=== PATIENT | female | born 1960 | race Hispanic/Latino ===

== ENCOUNTER 2024-11-25 09:34 | Outpatient (CLI) | payer MEDICARE, SELFPAY ==
--- NOTE | ~2024-11-25 | MR_ITS ---
MRI of the right shoulder Technique: Axial proton-density fat-sat images, coronal proton density fat-sat and T2 fat-sat images, and sagittal T1-weighted and T2 fat-sat images were acquired. Clinical History: Pain Findings: There is advanced AC joint degenerative change with bony productive change of both sides of the joint. Coracoclavicular, coracoacromial, and coracohumeral ligaments appear intact. There is apparent full-thickness tear involving the anterior to midportion of the distal supraspinatu s tendon insertion, with full-thickness tear measuring approximately 2.2 x 1.3 cm in extent. Subscapu luis tendon demonstrates diffuse thinning without definite full-thickness tear. There is apparent ru pture of the proximal biceps tendon, probably retracted to the bicipital groove. There is a degenerative tearing and attenuation of the superior labrum. Inferior glenohumeral ligament is intact. No significant degenerative change of the glenohumeral join t. There are small glenohumeral joint effusion with fluid passing through the rotator cuff defect int o the subacromial/subdeltoid bursa. No muscle atrophy or edema evident. Impression: 2.2 x 1.37 or full-thickness tear at the anterior to midportion of the distal supraspinatus tendon in sertion. Probable complete rupture of the proximal long head biceps tendon with retraction into the bicipital groove. Degenerative tearing and attenuation of the superior labrum. Advanced AC joint degenerative change. Reviewed, dictated and finalized at [facility]. Impression: 2.2 x 1.37 or full-thickness tear at the anterior to midportion of the distal s upraspinatus tendon insertion. Probable complete rupture of the proximal long head biceps tendon with retracti on into the bicipital groove. Degenerative tearing and attenuation of the superior labrum. Advanced AC joint degenerative change.
== END 2024-11-25 09:35 | disposition home or self-care (01) ==
LOC: MICIMG 09:35
PROVIDERS: PCP Emergency Medicine; Visit Provider Orthopaedic Surgery
DX: S46.811A Strain of other muscles, fascia and tendons at shoulder and upper arm level, right arm, initial encounter (principal)
CPT/HCPCS: 73221

== ENCOUNTER 2024-12-11 10:02 | Outpatient (CLI) | payer MEDICARE, SELFPAY ==
--- NOTE | 2024-12-11 10:15 | ECG_ITS ---
Test Date: 2024-12-11 10:32:17 Measurements Intervals [place] Rate: 85 P: 57 AL: 182 QRS: 18 QRSD: 78 T: 44 QT: 358 QTc: 427 Interpretive Statements SINUS RHYTHM DELAYED PRECORDIAL R/S TRANSITION LOW QRS VOLTAGE IN PRECORDIAL LEADS BASELINE ARTIFACT- I, II, III, AVR, AVL, AVF BORDERLINE ECG No previous ECG available for comparison Electronically Signed On 12-11-2024 10:56:39 CDT by Cooper Lewis D.O.
[2024-12-11 10:47] LABS: Anion Gap 9 mmol/L (4-12); Blood Urea Nitrogen 19 mg/dL (7-17); Calcium 9.4 mg/dL (8.4-10.2); Carbon Dioxide 28 mmol/L (22-30); Chloride 104 mmol/L (98-107); Estimated Glomerular Filt Rate > 60; Glucose 156 mg/dL (65-110); Sodium 141 mmol/L (137-145)
--- OUTSIDE RECORDS SUMMARY | 2024-12-11 10:48 | XMS_ITS | Data Portability ---
Author Organization [facility] Address [address] [place] [address] Care Team Providers Care Block Sawyer Name Role Phone STAR JAMES Primary Care Provider DIANE LONGO Primary Care Provider Unavailabl e Assessment No assessment recorded. Plan of Treatment Reminders Order Date Submit Date Provider Last Modified By Organization Details Last Modified Time Details Appointments ANY 2024 04:00P M Diane Longo MD Not available Not available Not available ANY 2024 02:30P M Diane Longo MD Not available Not available Not available Lab hemoglobi n (Hb), fingersti ck, blood 2024 025 [email or web address] In-Office Order, Internal Use Only DO Not Attach Compendium DO Not Attach Compendium, Do Not Delete/merge, [id number] 11/11/2024 16:14:19 lipid panel, serum 2024 025 ilesma [facility], [address], [place], [address], 12/09/2024 11:02:44 CMP, serum or plasma 2024 025 [email or web address] [facility], [address], [place], [address], 12/02/2024 12:14:26 CBC 2024 025 [email or web address] [facility], [address], [place], [address], 12/02/2024 12:14:26 albumin/c reatinine , mass ratio, urine 2024 025 [facility], [address], [place], [address], 12/02/2024 12:14:26 HbA1c (hemoglob in A1c), blood 2024 025 URBANA [facility], [address], [place], [address], 09/03/2024 19:10:12 lipid panel, serum 2023 024 [facility], [address], [place], [address], 11/20/2024 09:59:27 HbA1c (hemoglob in A1c), blood 2023 024 laureano In-Office Order, Internal Use Only DO Not Attach Compendium DO Not Attach Compendium, Do Not Delete/merge, [id number] 02/11/2024 17:26:15 Referral physical therapist referral - wasting in leg muscles, please help with exercises , diabetic 2024 025 [facility], [address] [facility] [address], [facility], [place], [address], 12/11/2024 05:06:45 gastroent erologist referral 2023 024 [facility], [address], [place], [address], 02/19/2024 10:50:54 podiatris t referral 2023 024 [facility], [address], [place], [address], 12/11/2023 15:45:06 otolaryng ologist referral - has seen ENT twice and treated with multiple courses of antibioti cs with no improveme nt, continues with green pustular drainage from ear and pain and decreased hearing, previous mastoidec albertina 2023 024 [facility] [address], [place], [address], 12/28/2023 10:59:14 Procedures None recorded. Surgeries None recorded. Imaging MAMMO, screening , digital, bilateral [address] [facility] ([facility]), [address] [place], [address], 12/09/2024 11:02:31 XR, shoulder 2024 025 [facility] ([facility]), [address] [place], [address], 09/02/2024 13:35:50 XR, abdomen, complete 2023 024 [facility] ([facility]), [address] [place], [address], 02/26/2024 13:29:23 XR, knee - include sunrise view 2023 024 [facility] ([facility]), [address] [place], [address], 12/11/2023 08:45:47 Medication Orders Farxiga 10 mg tablet [address] [facility] #[id number], [address], [place], [place], [id number], 11/11/2024 16:14:25 Ozempic 2 mg/dose (8 mg/3 mL) subcutane ous pen injector [address] [facility] #53274, [address], [place], [place], [id number], 11/11/2024 16:14:26 atorvasta tin 40 mg tablet [address] [facility] #65052, [address] [place], [place], [id number], 11/11/2024 16:14:24 lisinopri l 40 mg tablet [address] [facility] #34497, [address] [place], [place], [id number], 11/11/2024 16:14:26 famotidin e 20 mg tablet [address] [facility] #67246, [address] [place], [place], [id number], 11/11/2024 16:14:27 meloxicam 15 mg tablet [address] [facility] #57266, [address] [place], [place], [id number], 11/11/2024 16:14:26 methocarb debora 500 mg tablet [address] [facility] #22027, [address] [place], [place], [id number], 11/11/2024 16:14:31 meloxicam 15 mg tablet [address] [facility] #08844, [address], [place], [id number], 09/02/2024 12:17:26 methocarb debora 500 mg tablet [address] [facility] #89429, [address], [place], [id number], 09/02/2024 12:17:28 lactulose 10 gram/15 mL oral solution 2023 025 [facility] #40060, [address], [place], [id number], 11/11/2024 16:09:37 Ozempic 0.25 mg or 0.5 mg (2 mg/3 mL) subcutane ous pen injector 2023 024 [facility], [address], [place], [id number], 09/08/2024 15:41:10 Farxiga 5 mg tablet 2023 024 [facility] #39487, [address], [place], [id number], 12/04/2024 14:33:19 lidocaine 5 % topical patch 2023 025 [facility] #23146, [address], [place], [id number], 11/11/2024 15:02:27 Patient TargetsNo targets recorded. Patient Instructions Encounter Date Encounter Id Patient Instructions Last Modified By Organization Details Last Modified Time 12/10/2023 [id number] A healthy lifestyle: care instructions laureano Not available 12/10/2023 15:50:28 Reason for Referral [employer] Research Technician Referral fo r Acute left otitis media has seen ENT twice and treated with multiple courses of antibiotics with no improvement, continues with green pustular drainage from ear and pain and decreased hearing, previous mastoidectomy Referring Physician: Family Rosana Hdz, Encounter Date: 12/10/2023 Sap Consultant Referral for Pain of left ankle joint Referring Physician: Family Rosana Hdz, Encounter Date: 12/10/2023 Kettle Hand Referral for Constipation Referring Physician: Family Rosana Hdz, Encounter Date: 02/11/2024 Physical Therapist Referral for Body mass index 30+ - obesity wasting in leg muscles, please help with exercises, diabetic Referring Physician: [facility], Encounter Date: 11/11/2024 Results Created Date Observation Date Name Description Value Unit Range Abnormal Flag Note LastModifiedBy Organization Detail LastModifiedTime 11/20/19 24 11/21/2023 LIPID PANEL cholesterol, total 197 mg/dL 100-19 9 Not Available [facility] ([facility]) [address] [place], [address], 11/21/2023 10:14:58 11/20/19 24 11/21/2023 LIPID PANEL triglyceride s 337 mg/dL 0-149 above high normal Not Available [facility] ([facility]) [address] [place], [address], 11/21/2023 10:14:58 11/20/19 24 11/21/2023 LIPID PANEL HDL cholesterol 47 mg/dL >39 Not Available [facility] ([facility]) [address] [place], [address], 11/21/2023 10:14:58 11/20/19 24 11/21/2023 LIPID PANEL VLDL cholesterol anshu 56 mg/dL 5-40 above high normal Not Available [facility] ([facility]) [address] [place], [address], 11/21/2023 10:14:58 11/20/19 24 11/21/2023 LIPID PANEL LDL chol calc ([facility]) 94 mg/dL 0-99 Not Available [facility] ([facility]) [address] [place], [address], 11/21/2023 10:14:58 11/20/19 24 11/21/2023 COMP. METAB OLIC PANEL (14) glucose 308 mg/dL 70-99 above high normal Not Available [facility] ([facility]) [address] [place], [address], 11/21/2023 10:14:59 11/20/19 24 11/21/2023 COMP. METAB OLIC PANEL (14) BUN 20 mg/dL 8-27 Not Available [facility] ([facility]) [address] [facility] [address], [place], [address], 11/21/2023 10:14:59 11/20/19 24 11/21/2023 COMP. METAB OLIC PANEL (14) creatinine 0.87 mg/dL 0.57-1 .00 Not Available [facility] ([facility]) [address] [facility] [address], [place], [address], 11/21/2023 10:14:59 11/20/19 24 11/21/2023 COMP. METAB OLIC PANEL (14) eGFR 74 mL/mi n/1.7 3 >59 Not Available [facility] ([facility]) [address] [facility] [address], [place], [address], 11/21/2023 10:14:59 11/20/19 24 11/21/2023 COMP. METAB OLIC PANEL (14) BUN/creatini ne ratio 23 12-28 Not Available [facility] ([facility]) [address] [facility] [address], [place], [address], 11/21/2023 10:14:59 11/20/19 24 11/21/2023 COMP. METAB OLIC PANEL (14) sodium 138 mmol/ L 134-14 4 Not Available [facility] ([facility]) [address] [place], [address], 11/21/2023 10:14:59 11/20/19 24 11/21/2023 COMP. METAB OLIC PANEL (14) potassium 4.4 mmol/ L 3.5-5. 2 Not Available [facility] ([facility]) [address] [place], [address], 11/21/2023 10:14:59 11/20/19 24 11/21/2023 COMP. METAB OLIC PANEL (14) chloride 97 mmol/ L 96-106 Not Available [facility] ([facility]) [address] [place], [address], 11/21/2023 10:14:59 11/20/19 24 11/21/2023 COMP. METAB OLIC PANEL (14) carbon dioxide, total 24 mmol/ L Not Available [facility] ([facility]) [address], [place], [address], 11/21/2023 10:14:59 11/20/19 24 11/21/2023 COMP. METAB OLIC PANEL (14) calcium 10.0 mg/dL 8.7-10 .3 Not Available [facility] ([facility]) [address], [place], [address], 11/21/2023 10:14:59 11/20/19 24 11/21/2023 COMP. METAB OLIC PANEL (14) protein, total 6.9 g/dL 6.0-8. 5 Not Available [facility] ([facility]) [address], [place], [address], 11/21/2023 10:14:59 11/20/19 24 11/21/2023 COMP. METAB OLIC PANEL (14) albumin 4.3 g/dL 3.9-4. 9 Not Available [facility] ([facility]) [address] [place], [address], 11/21/2023 10:14:59 11/20/19 24 11/21/2023 COMP. METAB OLIC PANEL (14) globulin, total 2.6 g/dL 1.5-4. 5 Not Available [facility] ([facility]) [address] [place], [address], 11/21/2023 10:14:59 11/20/19 24 11/21/2023 COMP. METAB OLIC PANEL (14) A/G ratio 1.7 1.2-2. 2 Not Available [facility] ([place] [facility]) [address] [facility] [address], [place], [address], 11/21/2023 10:14:59 11/20/19 24 11/21/2023 COMP. METAB OLIC PANEL (14) bilirubin, total 0.4 mg/dL 0.0-1. 2 Not Available [facility] ([facility]) [address] [facility] [address], [place], [address], 11/21/2023 10:14:59 11/20/19 24 11/21/2023 COMP. METAB OLIC PANEL (14) alkaline phosphatase 129 IU/L 44-121 above high normal Not Available [facility] ([facility]) [address] [place], [address], 11/21/2023 10:14:59 11/20/19 24 11/21/2023 COMP. METAB OLIC PANEL (14) AST (SGOT) 18 IU/L 0-40 Not Available [facility] ([facility]) [address] [place], [address], 11/21/2023 10:14:59 11/20/19 24 11/21/2023 COMP. METAB OLIC PANEL (14) ALT (SGPT) 27 IU/L 0-32 Not Available [facility] ([facility]) [address] [place], [address], 11/21/2023 10:14:59 11/20/19 24 11/21/2023 TSH REFLE X TO T4 TSH 1.340 uIU/m L 0.450- 4.500 Not Available [facility] ([facility]) [address] [place], [address], 11/21/2023 10:15:00 11/20/19 24 11/21/2023 MICRO SCOPI C EXAMI NATIO N WBC 11-30 /hpf 0-5 abnormal Not Available [facility] ([facility]) [address] [place], [address], 11/21/2023 10:15:01 11/20/19 24 11/21/2023 MICRO SCOPI C EXAMI NATIO N RBC 0-2 /hpf 0-2 Not Available [facility] ([facility]) [address] [facility] [address], [place], [address], 11/21/2023 10:15:01 11/20/19 24 11/21/2023 MICRO SCOPI C EXAMI NATIO N epithelial cells (non renal) >10 /hpf 0-10 abnormal Not Available [facility] ([facility]) [address] [facility] [address], [place], [address], 11/21/2023 10:15:01 11/20/19 24 11/21/2023 MICRO SCOPI C EXAMI NATIO N casts None seen /lpf nonese en Not Available [facility] ([facility]) [address] [facility] [address], [place], [address], 11/21/2023 10:15:01 11/20/19 24 11/21/2023 MICRO SCOPI C EXAMI NATIO N bacteria Modera te nonese en/few abnormal Not Available [facility] ([facility]) [address] [facility] [address], [place], [address], 11/21/2023 10:15:01 11/20/19 24 11/21/2023 MICRO SCOPI C EXAMI NATIO N yeast Presen t nonese en abnormal Not Available [facility] ([facility]) [address] [facility] [address], [place], [address], 11/21/2023 10:15:01 11/20/19 24 11/21/2023 HEMOG LOBIN A1C hemoglobin A1C 12.1 % 4.8-5. 6 above high normal Predi abete s: 5.7 - 6.4 Diabe roe: >6.4 Glyce arabella contr ol for adult s with diabe roe: <7.0 Not Available [facility] ([facility]) [address] [facility] [address], [place], [address], 11/21/2023 10:15:02 11/20/19 24 11/21/2023 URINA LYSIS , ROUTI NE specific gravity 1.016 1.005- 1.030 Not Available [facility] ([facility]) [address] [place], [address], 11/21/2023 10:15:02 11/20/19 24 11/21/2023 URINA LYSIS , ROUTI NE pH 5.5 5.0-7. 5 Not Available [facility] ([facility]) [address] [facility] [address], [place], [address], 11/21/2023 10:15:02 11/20/19 24 11/21/2023 URINA LYSIS , ROUTI NE urine-color Yellow yellow Not Available [facility] ([facility]) [address] [facility] [address], [place], [address], 11/21/2023 10:15:02 11/20/19 24 11/21/2023 URINA LYSIS , ROUTI NE appearance Cloudy clear abnormal Not Available [facility] ([facility]) [address] [facility] [address], [place], [address], 11/21/2023 10:15:02 11/20/19 24 11/21/2023 URINA LYSIS , ROUTI NE WBC esterase 1+ negati ve abnormal Not Available [facility] ([facility]) [address] [place], [address], 11/21/2023 10:15:02 11/20/19 24 11/21/2023 URINA LYSIS , ROUTI NE protein Trace negati ve/tra ce Not Available [facility] ([facility]) [address] [place], [address], 11/21/2023 10:15:02 11/20/19 24 11/21/2023 URINA LYSIS , ROUTI NE glucose 3+ negati ve abnormal Not Available [facility] ([facility]) [address] [place], [address], 11/21/2023 10:15:02 11/20/19 24 11/21/2023 URINA LYSIS , ROUTI NE ketones Negati ve negati ve Not Available [facility] ([facility]) [address] [place], [address], 11/21/2023 10:15:02 11/20/19 24 11/21/2023 URINA LYSIS , ROUTI NE occult blood Trace negati ve abnormal Not Available [facility] ([facility]) [address] [place], [address], 11/21/2023 10:15:02 11/20/19 24 11/21/2023 URINA LYSIS , ROUTI NE bilirubin Negati ve negati ve Not Available [facility] ([facility]) [address] [place], [address], 11/21/2023 10:15:02 11/20/19 24 11/21/2023 URINA LYSIS , ROUTI NE urobilinogen ,semi-qn 0.2 mg/dL 0.2-1. 0 Not Available [facility] ([facility]) [address] [place], [address], 11/21/2023 10:15:02 11/20/19 24 11/21/2023 URINA LYSIS , ROUTI NE nitrite, urine Negati ve negati ve Not Available [facility] ([facility]) [address] [place], [address], 11/21/2023 10:15:02 11/20/19 24 11/21/2023 URINA LYSIS , ROUTI NE microscopic examination See below: Micro scopi c was indic ated and was perfo rmed. Not Available [facility] ([facility]) [address] [place], [address], 11/21/2023 10:15:02 12/04/19 24 12/05/2023 ALBUM IN/CR EAT RATIO , RANDO M UR creatinine, urine 84.8 mg/dL notest ab. Not Available [facility] ([facility]) [address] [facility] [address], [place], [address], 12/05/2023 09:15:47 12/04/19 24 12/05/2023 ALBUM IN/CR EAT RATIO , KALYAN Salas UR albumin, urine 30.3 ug/mL notest ab. Not Available [facility] ([facility]) [address] [facility] [address], [place], [address], 12/05/2023 09:15:47 12/04/19 24 12/05/2023 ALBUM IN/CR EAT RATIO , KALYAN Salas UR alb/creat ratio 36 mg/g_ creat 0-29 above high normal Kath l: 0 - 29 Moder ately incre ased: 30 - 300 Sever chapito incre ased: >300 Not Available [facility] ([facility]) [address] [facility] [address], [place], [address], 12/05/2023 09:15:47 12/04/1912/05/2023 URINA LYSIS , ROUTI NE specific gravity 1.020 1.005- 1.030 Not Available [facility] ([facility]) [address] [facility] [address], [place], [address], 12/05/2023 09:15:48 12/04/19 24 12/05/2023 URINA LYSIS , ROUTI NE pH 5.5 5.0-7. 5 Not Available [facility] ([facility]) [address] [place], [address], 12/05/2023 09:15:48 12/04/1912/05/2023 URINA LYSIS , ROUTI NE urine-color Yellow yellow Not Available [facility] ([facility]) [address] [facility] [address], [place], [address], 12/05/2023 09:15:48 12/04/19 24 12/05/2023 URINA LYSIS , ROUTI NE appearance Clear clear Not Available [facility] ([facility]) [address] [facility] [address], [place], [address], 12/05/2023 09:15:48 12/04/19 24 12/05/2023 URINA LYSIS , ROUTI NE WBC esterase Negati ve negati ve Not Available [facility] ([facility]) [address] [facility] [address], [place], [address], 12/05/2023 09:15:48 12/04/19 24 12/05/2023 URINA LYSIS , ROUTI NE protein Negati ve negati ve/tra ce Not Available [facility] ([facility]) [address] [facility] [address], [place], [address], 12/05/2023 09:15:48 12/04/19 24 12/05/2023 URINA LYSIS , ROUTI NE glucose 3+ negati ve abnormal Not Available [facility] ([facility]) [address] [facility] [address], [place], [address], 12/05/2023 09:15:48 12/04/19 24 12/05/2023 URINA LYSIS , ROUTI NE ketones Negati ve negati ve Not Available [facility] ([facility]) [address] [facility] [address], [place], [address], 12/05/2023 09:15:48 12/04/19 24 12/05/2023 URINA LYSIS , ROUTI NE occult blood Negati ve negati ve Not Available [facility] ([facility]) [address] [place], [address], 12/05/2023 09:15:48 12/04/19 24 12/05/2023 URINA LYSIS , ROUTI NE bilirubin Negati ve negati ve Not Available [facility] ([facility]) [address] [place], [address], 12/05/2023 09:15:48 12/04/19 24 12/05/2023 URINA LYSIS , ROUTI NE urobilinogen ,semi-qn 0.2 mg/dL 0.2-1. 0 Not Available [facility] ([facility]) [address] [place], [address], 12/05/2023 09:15:48 12/04/19 24 12/05/2023 URINA LYSIS , ROUTI NE nitrite, urine Negati ve negati ve Not Available [facility] ([facility]) [address] [place], [address], 12/05/2023 09:15:48 12/04/19 24 12/05/2023 URINA LYSIS , ROUTI NE microscopic examination Commen t Micro scopi c not indic ated and not perfo rmed. Not Available [facility] ([facility]) [address] [place], [address], 12/05/2023 09:15:48 12/04/19 24 12/06/2023 URINE CULTU RE, ROUTI NE urine culture, routine Final report abnormal Not Available [facility] ([facility]) [address] [place], [address], 12/07/2023 06:18:31 12/04/19 24 12/06/2023 URINE CULTU RE, ROUTI NE result 1 Escher ichia coli abnormal 25,00 0-50, 000 colon y formi ng units per mL Cefaz chace <=4 ug/mL Cefaz chace with an ARABELLA <=16 predi cts susce ptibi lity to the oral agent s cefac thierno, cefdi jordan, cefpo doxim e, cefpr ozil, cefur oxime , cepha lexin , and lorac arbef when used for thera py of uncom plica manuel urina ry tract infec tions due to E. coli, Klebs iella pneum oniae , and Prote us mirab ilis. Multi -Drug Resis tant Organ ism Not Available [facility] ([facility]) [address] [place], [address], 12/07/2023 06:18:31 12/04/19 24 12/06/2023 URINE CULTU RE, ROUTI NE antimicrobia l susceptibili ty Commen t S = Susce ptibl e; I = Inter media te; R = Resis tant P = Posit jigar; N = Negat jigar MICS are expre ssed in micro grams per mL Antib iotic RSLT# 1 RSLT# 2 RSLT# 3 RSLT# 4 Amoxi cilli n/Cla vulan ic Acid S Ampic illin R Cefep peggy S Ceftr iaxon e S Cefur oxime S Cipro floxa dat S Ertap enem S Genta micin S Imipe nem S Levof loxac in S Merop enem S Nitro furan toin S Piper acill in/Ta zobac heath S Tetra cycli ne R Tobra mycin S Trime thopr im/Jni lfa R Not Available [facility] ([facility]) [address] [facility] [address], [place], [address], 12/07/2023 06:18:31 02/11/20 24 02/11/2024 HbA1c (hemo globi n A1c), blood HbA1c 10.7 Not Available In-Office Order Internal Use Only DO Not Attach Compendium DO Not Attach Compendium, Do Not Delete/merge, [id number] 02/11/2024 17:09:55 09/02/19 25 09/03/2024 HEMOG LOBIN A1C hemoglobin A1C 10.8 % 4.8-5. 6 above high normal Predi abete s: 5.7 - 6.4 Diabe roe: >6.4 Glyce arabella contr ol for adult s with diabe roe: <7.0 Not Available [facility] ([facility]) [address] [facility] [address], [place], [address], 09/03/2024 19:10:12 11/12/19 25 11/11/2024 hemog lobin (Hb), finge rstic k, blood HGB 9.6 Not Available In-Office Order Internal Use Only DO Not Attach Compendium DO Not Attach Compendium, Do Not Delete/merge, [id number] 11/11/2024 15:46:10 11/30/19 24 11/30/2023 XR, ankle , 3 or more view No observ ation record ed. [facility] [address] [place], [address], 12/10/2023 10:04:16 11/30/19 24 11/30/2023 XR, abdom en, compl ete No observ ation record ed. [facility] [address] [place], [address], 12/10/2023 10:04:17 12/11/19 24 12/10/2023 XR, abdom en, compl ete No observ ation record ed. [facility] ([facility] [address] [place], [address], 12/12/2023 10:23:13 12/11/19 24 12/10/2023 XR, knee No observ ation record ed. [facility] [address] [place], [address], 12/12/2023 10:23:26 05/23/20 24 05/23/2024 XR, abdom en No observ ation record ed. [address] [place], [address], 05/29/2024 10:37:46 05/23/20 24 05/23/2024 CT, abdom en + pelvi s, w/ contr ast No observ ation record ed. [address] [place], [address], 05/29/2024 10:38:00 09/02/19 25 09/02/2024 XR, shoul shirley No observ ation record ed. [facility] [address] [place], [address], 09/11/2024 17:54:30 11/25/19 25 XR, shoul shirley No observ ation record ed. [facility] ([facility] [address] [place], [address], 11/25/2024 15:45:22 11/26/19 25 11/25/2024 MRI, shoul shirley, w/o contr ast No observ ation record ed. [facility] [address], [place], [address], 11/25/2024 18:14:29 Result Notes None recorded. Problems Name Problem SNOMED Code Status Onset Date Resolution Date Notes Provider Name and Address Organization Details Recorded Time Type 2 diabetes mellitus 10421583 Active 2021 Not Available [facility] 3 13:10:31 Essential hypertension 00901147 Active 2021 Not Available [facility] 13:10:31 Hyperlipidemi a 41144427 Active 2021 Not Available [facility] 3 13:10:31 Gastroesophag eal reflux disease without esophagitis 163659085 Active 2021 Not Available [facility] 3 13:10:31 Notes:Some problems listed i n Documents: #[id number], #[id number] could not be added to this patient's chart. Please review these documents and add these problems to the patient's chart manually as needed. Problem Notes None recorded. Procedures Surgical History Date Name Laterality Status Provider Name and Address Organization Details Recorded Time Caesarean Section completed Liliana Guzman [place] [facility] 07/19/2022 14:35:18 procedure on ear completed Emilie Almodovar MA [place] [facility] 09/02/2024 11:01:25 Imaging Results Imaging Date Name Status LastModified by Organiz [facility] Details LastModified Time 11/30/2023 XR, ankle, 3 or more view completed [facility] [address] [place], [address], 12/10/2023 10:04:16 11/30/2023 XR, abdomen, complete completed [facility] [address] [place], [address], 12/10/2023 10:04:17 12/10/2023 XR, abdomen, complete completed [facility] ([facility] Sched[facility]) [address] [place], [address], 12/12/2023 10:23:13 12/10/2023 XR, knee completed [facility] [address] [place], [address], 12/12/2023 10:23:26 05/23/2024 XR, abdomen completed [address] [place], [address], 05/29/2024 10:37:46 05/23/2024 CT, abdomen + pelvis, w/ contrast completed [address] [place], [address], 05/29/2024 10:38:00 09/02/2024 XR, shoulder completed [facility] [address] [place], [address], 09/11/2024 17:54:30 11/24/2024 XR, shoulder completed [facility] ([facility] Scheduling) [address] [place], [address], 11/25/2024 15:45:22 11/25/2024 MRI, shoulder, w/o contrast completed [facility] [address], [place], [address], 11/25/2024 18:14:29 Procedure Notes None recorded. Medical Equipment None Reported. Allergies No known drug allergies Medications Name Sig Start Date Stop Date Status Note LastModified by Organization Details LastModified Time amoxicilli n 500 mg capsule TAKE 2 CAPSULES BY MOUTH NOW THEN TAKE ONE CAPSULE BY MOUTH EVERY 6 HOURS UNTIL ALL TAKEN 12/09 completed Not Available Not Available Not Available Miralax 17 gram/dose oral powder one dose of Miralax with a glass of liquid, then continue daily as needed to keep stool regular and formed. Take daily unless stool becomes liquid and loose. If stool becomes liquid and loose decrease to every other day or less to keep stool formed. 12/10 completed Not Available Not Available Not Available atorvastat in 40 mg tablet TAKE 1 TABLET BY MOUTH EVERY DAY. active Not Available Not Available No t Available methocarba mol 500 mg tablet TAKE 1 TABLET BY MOUTH AT BEDTIME NEEDED FOR PAIN active Not Available Not Available No t Available atorvastat in 10 mg tablet TAKE 1 TABLET BY MOUTH EVERY DAY active Not Available Not Available No t Available azithromyc in 250 mg tablet TAKE 2 TABLETS (500 MG) BY ORAL ROUTE ONCE DAILY FOR 1 DAY THEN 1 TABLET (250 MG) BY ORAL ROUTE ONCE DAILY FOR 4 DAYS 10/09 completed Not Available Not Available Not Available fluconazol e 150 mg tablet TAKE 1 TABLET BY MOUTH EVERY DAY 10/29 completed Not Available Not Available Not Available hydrocodon e 5 mg-acetami nophen 325 mg tablet TAKE 1 TABLET BY MOUTH EVERY 6 HOURS NEEDED FOR PAIN 09/02 completed Not Available Not Available Not Available meloxicam 15 mg tablet TAKE 1 TABLET BY MOUTH EVERY MORNING WITH FOOD NEEDED FOR PAIN active Not Available Not Available No t Available ondansetro n HCl 4 mg tablet TAKE 1 TABLET BY MOUTH EVERY 8 HOURS 10/29 completed Not Available Not Available Not Available famotidine 40 mg tablet TAKE 1 TABLET BY MOUTH EVERY NIGHT AT BEDTIME 10/29 completed Not Available Not Available Not Available acetaminop hen 300 mg-codeine 30 mg tablet TAKE 1 TABLET BY MOUTH EVERY 6 HOURS 11/11 completed Not Available Not Available Not Available sulfametho xazole 800 mg-trimeth oprim 160 mg tablet 02/10 completed Not Available Not Available Not Available tramadol 50 mg tablet one to two tabs po tid prn pain 09/02 completed Not Available Not Available Not Available ofloxacin 0.3 % ear drops INSTILL 5 DROPS TO LEFT EAR DAILY FOR 7 TO 10 DAYS 11/11 completed Not Available Not Available Not Available amoxicilli n 875 mg tablet TAKE 1 TABLET BY MOUTH TWICE DAILY FOR 5 DAYS 07/19 completed Not Available Not Available Not Available famotidine 20 mg tablet TAKE 1 TABLET BY MOUTH TWICE DAILY active Not Available Not Available No t Available ciprofloxa dat 0.3 % eye drops INSTILL 2 DROPS INTO AFFECTED EYE EVERY 6 HOURS FOR 5 DAYS 11/11 completed Not Available Not Available Not Available OneTouch Ultra Test strips Use to check blood sugar every morning 2024 active Not Available Not Available Not Avai lable metformin 1,000 mg tablet TAKE 1 TABLET BY MOUTH TWICE DAILY 11/11 completed Not Available Not Available Not Available lidocaine 5 % topical patch Apply one patch daily active Not Available Not Available No t Available omeprazole 20 mg capsule,de layed release Take 1 capsule every day by oral route. 10/29 completed Not Available Not Available Not Available lisinopril 40 mg tablet TAKE 1 TABLET BY MOUTH EVERY DAY active Not Available Not Available No t Available cefdinir 300 mg capsule TAKE 1 CAPSULE BY MOUTH EVERY 12 HOURS FOR 10 DAYS 08/07 completed Not Available Not Available Not Available amoxicilli n 875 mg-potassi um clavulanat e 125 mg tablet one tab po bid 09/02 completed Not Available Not Available Not Available Dulcolax (bisacodyl ) 5 mg tablet,del ayed release At 2:00 PM the day before the colonosc opy, take all 4 tablets of Dulcolax by mouth at one time with 8 ounces of water 10/29 completed Not Available Not Available Not Available neomycin-p olymyxin-h ydrocort 3.5 mg-10,000 unit/mL-1 % ear drops,susp INSTILL 4 DROPS INTO AFFECTED EAR(S) BY OTIC ROUTE 3 TIMES PER DAY 08/24 completed Not Available Not Available Not Available ciprofloxa dat 0.3 %-dexameth asone 0.1 % ear drops,susp ension SHAKE LIQUID AND INSTILL 4 DROPS TO AFFECTED EAR TWICE DAILY FOR 7 DAYS 06/05 completed Not Available Not Available Not Available lactulose 10 gram/15 mL oral solution TAKE 15 ML BY MOUTH TWICE DAILY NEEDED FOR CONSTIPA TION 11/11 completed Not Available Not Available Not Available Victoza 3-Yves 0.6 mg/0.1 mL (18 mg/3 mL) subcutaneo us pen injector Inject .6 mg subcu daily 09/02 completed Not Available Not Available Not Available Farxiga 10 mg tablet one tab po q d 2024 active Not Available Not Available Not Avai lable Farxiga 5 mg tablet TAKE 1 TABLET BY MOUTH EVERY DAY 12/04 completed taking 10mg dose Not Available Not Available Not Available Metamucil 0.4 gram capsule one capsule a day. 11/11 completed Not Available Not Available Not Available TRUEplus Pen Needle 32 gauge x active Not Available Not Available Not Available OneTouch Ultra2 Meter USE DIRECTED active Not Available Not Available No t Available OneTouch Delica Plus Lancet 33 gauge USE TO TEST BLOOD SUGAR LEVELS ONCE EVERY MORNING active Not Available Not Available No t Available Ozempic 1 mg/dose (4 mg/3 mL) subcutaneo us pen injector INJECT 1 MG UNDER THE SKIN ONCE A WEEK 11/11 completed Not Available Not Available Not Available Ozempic 2 mg/dose (8 mg/3 mL) subcutaneo us pen injector INJECT 2MG UNDER THE SKIN DIRECTED ONCE WEEKLY. active Not Available Not Available No t Available Ozempic 0.25 mg or 0.5 mg (2 mg/3 mL) subcutaneo us pen injector INJECT 0.5MG UNDER THE SKIN ONCE A WEEK active Not Available Not Available No t Available Vitals Date Recorded Body height Body mass index (BMI) Body weight Oxygen saturation Oxygen saturation in Arterial blood by Pulse oximetry Heart rate Systolic blood pressure Diastolic blood pressure Provider Name and Address Organization Details Last Updated DateTime 4 154.94 cm 29.3 kg/m2 11401.8 2 g 97 % 97 % 82 /min 122 mm[Hg] 80 mm[Hg] Emilie Almodovar MA [place] - [facility] 4 14:48:17 Date Recorded Body height Oxygen saturation Oxygen saturation in Arterial blood by Pulse oximetry Heart rate Systolic blood pressure Diastolic blood pressure Provider Name and Address Organization Details Last Updated DateTime 4 154.94 cm 97 % 97 % 82 /min 122 mm[Hg] 78 mm[Hg] Emilie Almodovar MA [facility] 4 16:22:56 Date Recorded Body height Body mass index (BMI) Body weight Heart rate Body temperature Systolic blood pressure Diastolic blood pressure Provider Name and Address Organization Details Last Updated DateTime 4 154.94 cm 28.8 kg/m2 73070.1 2 g 90 /min 97.2 [degF] 151 mm[Hg] 69 mm[Hg] Marisel Fontenot [facility] 4 12:29:44 Date Recorded Body height Body mass index (BMI) Body weight Oxygen saturation Oxygen saturation in Arterial blood by Pulse oximetry Heart rate Systolic blood pressure Diastolic blood pressure Provider Name and Address Organization Details Last Updated DateTime 5 154.94 cm 30.2 kg/m2 52066.7 8 g 98 % 98 % 88 /min 138 mm[Hg] 68 mm[Hg] Emilie Almodovar MA [facility] 5 11:03:05 Date Recorded Body height Body mass index (BMI) Body weight Oxygen saturation Oxygen saturation in Arterial blood by Pulse oximetry Heart rate Body temperature Systolic blood pressure Diastolic blood pressure Provider Name and Address Organization Details Last Updated DateTime 5 154.94 cm 30 kg/m2 53348.1 9 g 98 % 98 % 88 /min 97.8 [degF] 122 mm[Hg] 80 mm[Hg] Emilie Almodovar MA [facility] 5 15:05:35 Social History Question Answer Notes LastModified by Organizat ion Details LastModified Time Tobacco Smoking Status Never Smoker Liliana Guzman [facility], [facility] 07/19/2022 14:33:56 Do You Have An Advance Directive? No Information not available 07/19/2022 What Is Your Level Of Alcohol Consumption? Occasional Information not available 07/19/2022 In The 14 Days Before Symptom Onset, Have You Had Close Contact With A Laboratory-confi rmed COVID-19 While That Case Was Ill? No Information not available 08/07/2022 In The 14 Days Before Symptom Onset, Have You Had Close Contact With A Person Who Is Under Investigation For COVID-19 While That Person Was Ill? No Information not available 08/07/2022 Have You Been To An Area Known To Be High Risk For COVID-19? No Information not available 08/07/2022 Are You Currently Employed? No Disabled Information not available 07/19/2022 Do You Have A Medical Power Of Print Inspector? No [email or web address] Information not available 08/11/2022 What Was The Date Of Your Most Recent Tobacco Screening? 11/11/2024 Information not available 11/11/2024 What Is Your Relationship Status? Information not available 07/19/2022 Are You Sexually Active? Yes Information not available 07/19/2022 Do You Have Smoke And Carbon Monoxide Detectors In Your Home? No 07/19/2022 Pt States Not Working, Cb-rma Information not available 07/19/2022 Are You Passively Exposed To Smoke? Yes Information not available 07/19/2022 Do You Use Any Illicit Or Recreational Drugs? Yes Marijuana Information not available 07/19/2022 Has Tobacco Cessation Counseling Been Provided? Yes Information not available 09/02/2024 On What Date Was Tobacco Cessation Counseling Provided? 11/11/2024 Information not available 11/11/2024 Do You Or Have You Ever Used Any Other Forms Of Tobacco Or Nicotine? No Information not available 07/19/2022 Sex: Unknown Functional Status None recorded. Mental Status None recorded. Family History Relationship Description Onset Age of this Age Resolved Age Notes LastModified by Organization Details LastModified Time Father No current problems or disability [email or web address] Not available 14:33:25 Mother No current problems or disability [email or web address] Not available 14:33:25 Medical History Condition Response Anxiety Disorder N Diabetes Y Coronary Artery Disease N Atrial Fibrillation N High Blood Pressure Y Seizures/Epilepsy N Acid Reflux (GERD) Y Cancer N Stroke N Kidney or Bladder Problems Y Thyroid Problems N GI Problems Y Blood Clots N COPD N Depression N Allergies N Asthma N Anemia Y High Cholesterol Y Hepatitis N Heart Attack (PA) N Heart Failure N Gynecological History Statement/Question Response Menses Monthly N Date of Last Pap Smear Current Control Method Menopause Date of Last Mammogram LMP Unknown Obstetrics History GPAL:G 4 P 4 0 0 4 Type Value Multiple Births 0 Full Term 4 Induced 0 Spontaneous 0 Premature 0 Living 4 Ectopics 0 Total 4 Past Encounters Encounter ID Performer Location Encounter Start Date Encounter Closed Date Diagnosis/Indication Diagnosis SNOMED-CT Code Diagnosis ICD10 Code Diagnosis Note [id number] SURAJ DAVENPORT [facility] (Adult Med) [address] [place] [address] 07/19/2022 14:20:23 07/19/2022 16:13:06 Adult health examination 703720845 Z00.00 Pt is 62 yo F with history of DM, HTN, GERD, and HLD presents to establish care. Obesity 189289774 E66.9 BMI 31.6. Recommende d daily exercise with a goal of 150 min/week of moderate-s trenuous activity and a balanced diet with an emphasis on fruits, vegetables , whole grains, legumes, lean protein, and mono/polyu nsaturated fats. Essential hypertension 12602520 I10 BP in clinic is 176/88. Pt states she is in pain and has been out of medication . Advised pt to take BP at home daily and keep log. Will discuss possible med changes at next visit. Discussed DASH diet. Advised goal for BP is <130/80. ER precaution s discussed. RTC in 2 weeks. History of urinary tract infection 6817923810 107 Z87.440 Pt reports recent kidney infection treated with antibiotic s. On PE, she has CVA tenderness and flank pain. UA with blood and small leuks. Will send for culture and treat pending results. Type 2 maribel betes mellitus 40963619 E11.9 Last A1C: unknown. A1c today in clinic 11.3Fastin g BG range: unknown, pt does not have working glucometer Current Therapy: Victoza 1.8mg injected daily and Metformin 100mg dialyStati n: NoneACE/AR B: lisinopril Eye: last visit 2021 Increase metformin to 1000mg BID. Continue Victoza. Pt will meet with Nurse for DM education. Instructed her to take BS fasting first thing in the AM and 2 post prandial and keep a log for review at next visit. Discussed that pt will try to decrease BS for 3 months but plan is to start insulin if A1c is not decreased significan tly in 3 months. Pt was counseled on low carbohydra te diet to better manage diabetes. We discussed pt's diet at length and I made specific dietary recommenda tions. I also encouraged regular exercise of 30-60 minutes most days of the week. New glucometer and supplies ordered. Return in 1 month. Hyperlipidemia 80855468 E78.5 Pt reports history of high cholestero l. Not currently on statin or lipid lowering therapy. Statin is indicated for DM, will start atorvastat in and check lipid panel. Gastroesop hageal reflux disease without esophagitis 184377527 K21.9 Currently only taking famotidine without relief. Will start omeprazole . Referral placed to GI. Diet modificati ons discussed. Screening for malignant neoplasm of colon 590985095 Z12.11 Due for screening Screening for malignant neoplasm of breast 664133285 Z12.31 Due for screening Otitis media 11304252 H6 6.92 Pt has left sided ear pain and drainage x 2 months. Failed two courses of abx. On PE, severe OM noted with postauricu lar tenderness . Concern for mastoiditi s, will obtain CT and refer to ENT. Will treat with cefdinir. ER precaution s discussed. [id number] Clayton Hill MD [facility] [address] [place] [address] 08/07/2022 11:29:29 08/08/2022 09:13:54 Chronic serous otitis media of left ear 912849610 H65.22 keep ear dry follow-up 2 weeks [id number] KUNAL RUELAS [facility] [address] [place] [address] 08/11/2022 09:22:45 08/17/2022 10:27:33 Screening for malignant neoplasm of colon 261174891 Z12.11 last colonoscop y > 5-10 years agoCBC and CMP in chart 07/19/2022 Hematochezia 389090602 K 92.1 await colonoscop y results; likely from hemorrhoid s due to constipati on Epigastric pain 62570497 R10.13 marked tenderness epigastric and LUQ with guarding on exam. Plan to eval with EGD Gastroesop hageal reflux disease without esophagitis 714918195 K21.9 Mild improvemen t with famotidine QHS; remain on famotidine and await EGD results before tailoring treatment Nonulcer dyspepsia 04545 07 K30 [id number] Clayton Hill MD [facility] [address] [place] [address] 08/24/2022 14:06:47 08/25/2022 10:01:44 Chronic otitis media 48983743 H66.[id number] [facility] [address] [place] [address] 10/09/2022 11:54:09 10/13/2022 08:37:43 Chronic serous otitis media of left ear 478875074 H65.22 keep ear dry follow-up [id number] [facility] [address] [place] [address] 10/13/2022 09:47:13 10/16/2022 14:37:47 Internal hemorrhoids 83076052 K64.8 patient to increase fiber. Does not want powder supplement ation. States she plans to purchase OTC fiber gummies. Abdominal pain 14556287 R10.9 Epigastric pain 08426583 R10.13 Diffuse tenderness all 4 quadrants. She has marked tenderness epigastric and RUQ with guarding on exam; recommend abdominal US for further eval.EGD 08/09/2023 duodenal and gastric mucosa WNL.Famoti dine 40 mg QHS helps some. Will try splitting dose to 20 mg BID. [id number] MD [facility] (Adult Med) [address] [place] [address] 10/30/2023 14:31:40 11/06/2023 15:07:36 Acute left otitis media 603338083 H66.92 Treat with Augmentin. Reassess at follow up. Still may need to see ENT for further evaluation . Type 2 maribel betes mellitus 84066025 E11.9 Due for routine blood work and urine check. Will return for fasting blood work. Will get hemoglobin A1C to see how well controlled diabetes has been over the last few months. Recommende d patient stay with the lower dose of Victoza for the time being since she is not tolerating the higher dose. Will discuss further at follow up in six weeks. Recently had eye exam. At follow up will want to discuss increasing statin to a moderate dose of 40 mg to be more cardiovasc ular protective due to her diagnoses of diabetes. Chronic constipation 236 066886 K59.09 Will get results of colonoscop y. Will get blood work to look for metabolic reasons for slowed transit time. Recommende d patient avoid drinking juices and make sure to drink enough water. Encouraged her to eat more fiber. Will try fiber supplement . Get abdominal xray. Follow up in six weeks. Pain of le ft ankle joint 1702200858 1146255 M25.572 Will get xray of left ankle due to pain and swelling. Essential hypertension 14455172 I10 Blood pressure controlled today. Continue present medication and continue to monitor. Returning for fasting blood work. Hyperlipidemia 82685119 E78.5 [id number] Diane Longo MD [facility] (Adult Med) [address] [place] [address] 12/10/2023 14:33:45 12/20/2023 14:57:05 Obesity 438323908 E66.9 Acute left otitis media 590283060 H66.92 History of mastoidect kira. Has been treated with multiple antibiotic s with no success. Has noticed decrease in hearing and continues with pustular drainage. Will refer to different ENT. Pain of ri ght knee joint 1939940710 42565 M25.561 Has had knee injection in the past but it was some time ago. Will review old records. Will get xray. Will send out Lidocaine patch for pain. Try to avoid anti-infla mmatories. Type 2 maribel betes mellitus 32922695 E11.9 Will add Farxiga to help control sugars and albuminuri a. Considered GLP-1 but went with Farxiga due to elevated triglyceri jonathan and risk of pancreatit is. Will have patient get glucose meter and check fasting glucose daily. Advised her to work on diet low in carbohydra roe. Follow up in two months. Constipation 07173255 K5 9.00 Has adjusted diet to increase fiber and has started having regular bowel movements. Will repeat abdominal xray to see if stool burden has resolved. Pain of le ft ankle joint 4351877937 5586509 M25.572 X-ray normal. Swelling may be due to tendon injury. Will make Podiatry referral for further evaluation . Albuminuria 559451719 R8 0.9 Explained to patient that this is an indication that the patient has mild kidney damage due to uncontroll ed diabetes. Stressed the importance of getting control of diabetes. Patient understand s. Try to avoid anti-infla mmatories. Repeat in three months. Hypertriglyceridemia 302 801286 E78.1 Patients triglyceri jonathan elevated. Discussed the risk of pancreatit is if this increases. She will work on diet. Repeat in three months. [id number] Diane Longo MD [facility] (Adult Med) [address] [place] [address] 02/11/2024 16:03:52 02/12/2024 14:31:27 Type 2 diabetes mellitus 24142023 E11.9 Hemoglobin A1C elevated. Also has slightly elevated albuminuri a. Stressed the importance of controllin g sugars. Will increase Ozempic to .5 mg subcu weekly and continue to increase to goal if she tolerates well. She is aware of the risk of pancreatit is and thyroid cancer. There is no thyroid cancer in her family. Her triglyceri jonathan are elevated and she is aware of the added risk of pancreatit is, but she would still like to try the medication . She is going to work on diet and exercise as well to try to bring her triglyceri jonathan down. Hypertriglyceridemia 302 001980 E78.1 She will return for a fasting lipid profile. Discussed the added risk of pancreatit is with Ozempic and elevated triglyceri jonathan. She is aware of that and is going to work on diet. We will see what her repeat triglyceri jonathan are. Constipation 39880189 K5 9.00 Continues to complain of occasional constipati on, and had constipati on again on repeat KUB. Will refer her to GI for further evaluation . Ankle edema 10064045 R60 .0 She is seeing orthopedic s for further evaluation . Chronic otitis media [address] of left mastoid for further evaluation . Arthritis of knee 727024 002 M13.869 Pain is controlled now. If pain becomes worse she can reach out for a steroid injection. Albuminuria 298940860 R8 0.9 Mild albuminuri a. Advised patient to stay well hydrated and avoid anti-infla mmatories. Explained to patient the importance of getting diabetes under control to prevent further kidney damage. Will monitor this closely. [id number] KUNAL RUELAS [facility] [address] [place] [address] 03/04/2024 12:03:08 03/05/2024 14:27:12 Chronic constipation 650816185 K59.09 add lactulose to daily miralax Epigastric pain 11237943 R10.13 Diffuse tenderness all 4 quadrants. She has marked tenderness epigastric and RUQ with guarding on exam; recommend abdominal US for further eval. Not seeing results of US in chart...If no improvemen t with symptomati c relief of constipati on, will hoopa back to US evalEGD 08/09/2023 duodenal and gastric mucosa WNL.Famoti dine 40 mg QHS helps some. Will try splitting dose to 20 mg BID. Continue famotidine 20 mg BID; has enough refills currently Abdominal pain 49223834 R10.9 acid reflux vs. constipati on Internal hemorrhoids 904 86149 K64.8 patient to increase fiber. Does not want powder supplement ation. States she plans to purchase OTC fiber gummies. [id number] MD [facility] (Adult Med) [address] [place] [address] 09/02/2024 10:46:21 09/03/2024 10:54:02 Pain of right shoulder joint 7256390337 9222572 M25.511 Will get x-ray to evaluate for arthritis. Also consider rotator cuff tendonitis . Will start Meloxicam once in the morning and muscle relaxer in the evening. Advised her to avoid over the counter Advil. She can take Tylenol if needed. Rest for a few days, but once starting to improve can work on some stretching exercises. If x-ray is negative and medicine is not helping consider MRI. Type 2 maribel betes mellitus 01993857 E11.9 Last Hemoglobin A1C was elevated. Patient has been using Ozempic. Has not been checking sugars. Will get an A1C today and will increase Ozempic if it is elevated, which I suspect it will be. She has a routine follow up in November. [id number] MD [facility] (Adult Med) [address] [place] [address] [place] [address] 11/11/2024 14:54:06 11/12/2024 16:37:20 Pain of right shoulder joint 3147393917 9899330 M25.511 Seeing orthopod next week for right shoulder. Will take Meloxicam during the day if needed and Methocarba mol at night. On her shoulder x-ray it did also mention some thoracic degenerati ve disc disease. The area where she complains of pain now is across her upper back and behind both shoulder. Her pain was originally her right shoulder but now it is behind both, but worse in her right shoulder. The other possibilit y is that this pain is radicular and related to cervical disc issues according to the dermatome she is complainin g about. Her orthopedic visit is coming up, but if the feeling is that the pain is not due to issues in her shoulder, or her pain is out of proportion to what is going on in her shoulder, we will further evaluate her cervical spine. Type 2 maribel betes mellitus 55342591 E11.9 Hemoglobin A1C is still elevated. Discussed the importance of getting this down to the goal of 7. Will increase Farxiga from 5 to 10 mg daily. Will continue Ozempic 2 mg. I don't know how well the Ozempic has worked for her. If she does not respond well with the increased dose of Farxiga consider switching to a different GLP-1. She does not know how to use her glucose monitor. I suggested she bring it in so we can teach her how to use it. This should make her more accountabl e. She checks her feet daily for lesions. No sores today. Discuss eye doctor appointmen t at follow up. Screening for malignant neoplasm of breast [id number] Z12.39 Overdue for mammogram. Essential hypertension 54765760 I10 Blood pressure controlled today. Continue present medication . Will follow up fasting for yearly blood work before next appointmen t. Gastroesop hageal reflux disease without esophagitis [id number] K21.9 No symptoms Hyperlipidemia 39745217 E78.5 Last lipids showed elevated LDL and triglyceri jonathan. Will return for fasting lipid and LFTs at follow up. Body mass index 30+ - obesity [id number] Z68.30 She has some muscle wasting in her legs and central obesity. Will have her work with physical therapy to find out what she could do at home to help with physical fitness and healthy lifestyle. Health Concerns Section Related Observation LastModified by Organization Detai ls LastModified Time None Recorded Concern Status LastModified by Organization Details LastModified Time None Recorded Advance Directives Directive N: Payers Encounter Date Sequence Insurance Name Policy Number Policy Turner Covered Member ID Turner Member ID Guarantor Name 12/10/2023 1 [facility] (MEDICARE REPLACEMENT/A DVANTAGE - HMO) [id number] Re Aburto [id number] Re Aburto 02/11/2024 1 [facility] (MEDICARE REPLACEMENT/A DVANTAGE - HMO) [id number] Re Abutro [id number] Re Aburto 03/04/2024 1 [facility] (MEDICARE REPLACEMENT/A DVANTAGE - PPO) [id number] Re Aburto [id number] Re Aburto 09/02/2024 1 [facility] (MEDICARE REPLACEMENT/A DVANTAGE - HMO) [id number] Re Aburto [id number] Re Aburto 11/11/2024 1 [facility] (MEDICARE REPLACEMENT/A DVANTAGE - HMO) [id number] Re Aburto [id number] Re Aburto Notes Date Note Type Note Provider Name and Address Organization Details Recorded Time 12/10/2023 text/html follow up, was taking Victoza before but was unable to continue getting the medication, does not have a glucose monitor at home to check sugars, had xray done for left ankle, left ankle swollen on outside, bowel movement better, eating oatmeal which helps, had hard bowels and then had regular bowel movements, hard time sleeping at night because of pain right leg, pain is behind knee, pain in right knee that makes it want to buckle, just started this year, has had an injection in that knee before, problems hearing left ear, continues with drainage and odor despite antibiotic, has had mastoidectomy in the past, Diane Longo MD Attn: Accounting,[address] [place], [address], [facility] 12/10/2023 17:56:12 02/11/2024 text/html follow up, left ear still draining and smells, appointment Sunday for CT scan for ear ordered by specialist, loosing weight with Ozempic and happy about that, tolerating Ozempic well, when started it had some stomach upset but that has resolved, believes did not go up to .5 mg and is still on the .25 mg, only picked up one pen, walks every day, occasonal pain in joints from arthritis, left lateral ankle swollen, has appointment with orthopedic, right knee is better, does not have pain in knee at this time and does not feel she needs an injection, still deal with occasional constipation, no family history of thyroid cancer or pancreatitis, Diane Longo MD Attn: Accounting,[address] [facility], [place], [address], [facility] 02/11/2024 18:19:29 03/04/2024 text/html Patient presents today for follow up of abdominal pain and constipation. 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 Has tried fiber and daily miralax without relief. Also takes an OTC liquid stool softener that helps minimally. Reports eating a lot of cheese. Upper abdominal pain stable on famotidine. States recently started ozempic and appreciates the weight loss. KUNAL RUELAS [address] [place], [address], [facility] 03/04/2024 13:04:07 09/02/2024 text/html here for right shoulder pain, it is constant, interferes with sleep, worse when sleeps on right shoulder, also has some left shoulder pain but not as bad as right, put biofreeze and Voltaren on it and it helps a little, has not had pain like this before, tried Tramadol and it did not help, had surgery on rotator cuff before after trauma, not sure which one but believes it was left, taking Advil pm, has not been checking sugars, taking Ozempic Diane Longo MD Attn: Accounting,[address] [facility], [place], [address], [facility] 09/02/2024 12:57:42 11/11/2024 text/html follow up, continues with right posterior shoulder pain and now also has some left posterior shoulder pain, seeing orthopedics November 17, pain from neck down to back of shoulders all night, more on right side but lately also notices it on left, no weakness, taking muscle relaxer at night, Meloxicam helped and did not hurt stomach, has ran out of Meloxicam, no history of stomach ulcer, no abdominal pain, takes medicine for reflux, grand child fell back on hand two months ago, feels bruised over fifth finger, diabetes fine, does not know how to use her monitor, does not sleep well, Diane Longo MD Attn: Accounting,[address] [facility], [place], [address], [facility] 11/11/2024 16:27:17 OBGyn Episode No OBEpisode recorded.
--- OUTSIDE RECORDS SUMMARY | 2024-12-11 10:48 | XMS_ITS | Data Portability ---
Author Organization [place] [facility] [employer], Main Office Address [address] [place] [address] Assessment No assessment recorded. Plan of Treatment Reminders Order Date Submit Date Provider Last Modified By Organization Details Last Modified Time Details Appointments None recorded. Lab urinalysis, dipstick 2022 023 [email or web address] [facility], [address], [address], 3 17:45:24 urinalysis, dipstick 2022 023 [email or web address] [facility], [address], [place], [address], 3 16:32:45 Referral None recorded. Procedures cystoscopy (PROC) 2022 023 DEONDRE Not available 3 05:01:58 Surgeries None recorded. Imaging CT, urogram 2022 023 [facility] ([facility]), [address] [place], [address], 3 19:26:25 Medication Orders None recorded. Patient TargetsNo targets recorded. Patient InstructionsNo instructions recorded. Reason for Referral None Reported. Results Created Date Observation Date Name Description Value Unit Range Abnormal Flag Note LastModifiedBy Organization Detail LastModifiedTime 12/20/1912/19/2022 urina lysis , dipst ick Leukocytes (reference range: negative amira/ l) Trace Not Available [facility] [address], [address], 12/19/2022 15:44:17 12/20/19 23 12/19/2022 urina lysis , dipst ick Nitrite (reference rage: negative mg/dl) negati ve Not Available [facility] [address], [place], [address], 12/19/2022 15:44:17 12/20/19 23 12/19/2022 urina lysis , dipst ick Urobilinogen (reference range: 0.2-1 mg/dl) 0.2 Not Available [facility] [address], [place], [address], 12/19/2022 15:44:17 12/20/19 23 12/19/2022 urina lysis , dipst ick Protein (reference range: negative mg/dl) Small Not Available [facility] [address], [place], [address], 12/19/2022 15:44:17 12/20/19 23 12/19/2022 urina lysis , dipst ick pH (reference range: 5-7) 5.5 Not Available [facility] [address] [place] [address] [address], [place], [address], 12/19/2022 15:44:17 12/20/19 23 12/19/2022 urina lysis , dipst ick Blood (reference range: negative Nicolás/ l) Large Not Available [facility] [address] [place] [place] [address] [address], [place], [address], 12/19/2022 15:44:17 12/20/19 23 12/19/2022 urina lysis , dipst ick Specific Half Way (reference range: 1.005-1.030) 1.020 Not Available [facility] [address], [place], [address], 12/19/2022 15:44:17 12/20/19 23 12/19/2022 urina lysis , dipst ick Ketone (reference range: negative mg/dl) Trace Not Available [facility] [address], [place], [address], 12/19/2022 15:44:17 12/20/19 23 12/19/2022 urina lysis , dipst ick Bilirubin (reference range: negative mg/dl) Negati ve Not Available [facility] [address], [place], [address], 12/19/2022 15:44:17 12/20/19 23 12/19/2022 urina lysis , dipst ick Glucose (reference range: negative mg/dl) 1000 Not Available [facility] [address], [place], [address], 12/19/2022 15:44:17 12/20/19 23 12/19/2022 urina lysis , dipst ick Appearance Slight ly Cloudy Not Available [facility] [address], [place], [address], 12/19/2022 15:44:17 12/20/19 23 12/19/2022 urina lysis , dipst ick Color Dark Yellow Not Available [facility] [address], [place], [address], 12/19/2022 15:44:17 02/06/20 23 02/05/2023 urina lysis , dipst ick Leukocytes (reference range: negative amira/ l) Trace Not Available [facility] [address], [place], [address], 02/05/2023 16:33:08 02/06/20 23 02/05/2023 urina lysis , dipst ick Nitrite (reference rage: negative mg/dl) negati ve Not Available [facility] [address], [place], [address], 02/05/2023 16:33:08 02/06/20 23 02/05/2023 urina lysis , dipst ick Urobilinogen (reference range: 0.2-1 mg/dl) 0.2 Not Available s_ [facility] [address], [place], [address], 02/05/2023 16:33:08 02/06/20 23 02/05/2023 urina lysis , dipst ick Protein (reference range: negative mg/dl) Negati ve Not Available [facility] [address], [place], [address], 02/05/2023 16:33:08 02/06/20 23 02/05/2023 urina lysis , dipst ick pH (reference range: 5-7) 5.5 Not Available Located [facility] [address] [facility] [address], [place], [address], 02/05/2023 16:33:08 02/06/20 23 02/05/2023 urina lysis , dipst ick Blood (reference range: negative Nicolás/ l) Non-He molyze d: Trace Not Available [facility] [address], [place], [address], 02/05/2023 16:33:08 02/06/20 23 02/05/2023 urina lysis , dipst ick Specific Half [address] (reference range: 1.005-1.030) 1.020 Not Available [facility] [place] [address] [facility] [address], [place], [address], 02/05/2023 16:33:08 02/06/20 23 02/05/2023 urina lysis , dipst ick Ketone (reference range: negative mg/dl) Negati ve Not Available [facility] [place] [address] [facility], [place], [address], 02/05/2023 16:33:08 02/06/20 23 02/05/2023 urina lysis , dipst ick Bilirubin (reference range: negative mg/dl) Negati ve Not Available [facility] [place] [address] [facility] [address], [place], [address], 02/05/2023 16:33:08 02/06/20 23 02/05/2023 urina lysis , dipst ick Glucose (reference range: negative mg/dl) Negati ve Not Available [facility] [place] [address] [facility], [place], [address], 02/05/2023 16:33:08 02/06/20 23 02/05/2023 urina lysis , dipst ick Appearance Clear Not Available [facility] [place] [address], [place], [address], 02/05/2023 16:33:08 02/06/20 23 02/05/2023 urina lysis , dipst ick Color Pale Yellow Not Available [facility] [place] [address] [facility], [address], 02/05/2023 16:33:08 01/03/20 23 01/02/2023 CT, urogr am No observ ation record ed. [email or web address] [facility] [address] [place], [address], 01/10/2023 10:00:36 Result Notes None recorded. Problems Name Problem SNOMED Code Status Onset Date Resolution Date Notes Provider Name and Address Organization Details Recorded Time Kidney stone 60613903 Active 2022 Mayte Pachecopanchito null, [facility] [employer] [facility] 3 16:10:52 Microscopic hematuria 491038542 Active 2022 RITA Meraz, [facility] [employer] [facility] 3 16:35:02 Problem Notes None recorded. Procedures Surgical History Date Name Laterality Status Provider Name and Address Organization Details Recorded Time Cystoscopy (female) completed Thierry Balderrama MD [address] [facility], [address], [address], [facility] [employer] [facility] 02/05/2023 17:44:30 Imaging Results Imaging Date Name Status LastModified by Organiz ation Details LastModified Time 01/02/2023 CT, urogram completed [email or web address] [facility] [address] [place], [address], 01/10/2023 10:00:36 Procedure Notes None recorded. Medical Equipment None Reported. Allergies No known drug allergies Medications Name Sig Start Date Stop Date Status Note LastModified by Organization Details LastModified Time atorvastati n 10 mg tablet TAKE 1 TABLET BY MOUTH EVERY DAY active Not Available Not Available No t Available azithromyci n 250 mg tablet 12/19 completed Not Available Not Available Not Available fluconazole 150 mg tablet TAKE 1 TABLET BY MOUTH EVERY DAY 12/19 completed Not Available Not Available Not Available hydrocodone 5 mg-acetamin ophen 325 mg tablet TAKE 1 TABLET BY MOUTH EVERY 6 HOURS NEEDED FOR PAIN 12/19 completed Not Available Not Available Not Available ondansetron HCl 4 mg tablet TAKE 1 TABLET BY MOUTH EVERY 8 HOURS 12/19 completed Not Available Not Available Not Available famotidine 40 mg tablet TAKE 1 TABLET BY MOUTH EVERY NIGHT AT BEDTIME 12/19 completed Not Available Not Available Not Available ofloxacin 0.3 % ear drops INSTILL 10 DROPS INTO EAR EVERY 24 FOR 7 DAYS 12/19 completed Not Available Not Available Not Available amoxicillin 875 mg tablet TAKE 1 TABLET BY MOUTH TWICE DAILY FOR 5 DAYS 12/19 completed Not Available Not Available Not Available famotidine 20 mg tablet TAKE 1 TABLET BY MOUTH TWICE DAILY BEFORE MEALS active Not Available Not Available No t Available OneTouch Ultra Test strips USE TO TEST THREE TIMES DAILY 12/19 completed Not Available Not Available Not Available metformin 1,000 mg tablet TAKE 1 TABLET BY MOUTH TWICE DAILY active Not Available Not Available No t Available polyethylen e glycol 3350 17 gram/dose oral powder MIX BOTTLE IN 64 OZ OF YELLOW OR GREEN GATORADE. DRINK ONE 8 OZ GLASS EVERY 15 MINS UNTIL COMPLETED . START 5 PM EVENING BEFORE 12/19 completed Not Available Not Available Not Available lisinopril 40 mg tablet TAKE 1 TABLET BY MOUTH EVERY DAY active Not Available Not Available No t Available cefdinir 300 mg capsule TAKE 1 CAPSULE BY MOUTH EVERY 12 HOURS FOR 10 DAYS 12/19 completed Not Available Not Available Not Available amoxicillin 875 mg-potassiu m clavulanate 125 mg tablet TAKE 1 TABLET BY MOUTH EVERY 12 HOURS 12/19 completed Not Available Not Available Not Available ciprofloxac in 0.3 %-dexametha sone 0.1 % ear drops,suspe nsion SHAKE LIQUID AND INSTILL 4 DROPS TO AFFECTED EAR TWICE DAILY FOR 7 DAYS 12/19 completed Not Available Not Available Not Available Victoza 2-Yves 0.6 mg/0.1 mL (18 mg/3 mL) subcutaneou s pen injector ADMINISTE R 1.8 MG UNDER THE SKIN EVERY DAY active Not Available Not Available No t Available OneTouch Ultra2 Meter USE TO TEST DIRECTED 12/19 completed Not Available Not Available Not Available OneTouch Delica Plus Lancet 33 gauge USE TO TEST THREE TIMES DAILY 12/19 completed Not Available Not Available Not Available Vitals Date Recorded Body height Heart rate Body temperature Body mass index (BMI) Body weight Oxygen saturation Oxygen saturation in Arterial blood by Pulse oximetry Systolic blood pressure Diastolic blood pressure Provider Name and Address Organization Details Last Updated DateTime 3 154.94 cm 82 /min 97.7 [degF] 29.5 kg/m2 34456.4 1 g 96 % 96 % 172 mm[Hg] 92 mm[Hg] Diane Stratton MA [facility] [employer] [facility] 3 15:32:01 Date Recorded Body height Heart rate Body temperature Oxygen saturation Oxygen saturation in Arterial blood by Pulse oximetry Systolic blood pressure Diastolic blood pressure Provider Name and Address Organization Details Last Updated DateTime 3 154.94 cm 88 /min 98.4 [degF] 96 % 96 % 156 mm[Hg] 135 mm[Hg] Diane Stratton MA [facility] [employer] [facility] 3 16:53:27 Social History Question Answer Notes LastModified by Organizat ion Details LastModified Time Tobacco Smoking Status Never Smoker PIYUSH Jacobo null, [facility] [employer] [facility] 12/19/2022 15:42:55 What Is Your Level Of Alcohol Consumption? None [email or web address] Information not available 12/19/2022 What Is Your Level Of Caffeine Consumption? None [email or web address] Information not available 12/19/2022 What Was The Date Of Your Most Recent Tobacco Screening? 12/19/2022 [email or web address] Information not available 12/19/2022 Sex: Unknown Functional Status None recorded. Mental Status None recorded. Family History Relationship Description Onset Age of this Age Resolved Age Notes LastModified by Organization Details LastModified Time Unspecified Relation Diabetes mellitus [email or web address] Not available 2022 15:41:42 Unspecified Relation Kidney stone [email or web address] Not available 15:42:04 Unspecified Relation Hypertensive disorder [email or web address] Not available 2022 15:42:16 Medical History Condition Response KIDNEY STONES Y HYPERTENSION Y Gynecological HistoryNo gynecological history recorded. Obstetrics History GPAL:G 0 P 0 0 0 0 Past Encounters Encounter ID Performer Location Encounter Start Date Encounter Closed Date Diagnosis/Indication Diagnosis SNOMED-CT Code Diagnosis ICD10 Code Diagnosis Note [id number] Thierry Balderrama MD [facility] [place] [address] [facility] [address] [place] [address] 12/19/2022 15:14:26 12/19/2022 16:13:53 Kidney stone 41289794 N20.0 Hematuria and renal stone, nothing to account for pain.. Suggested ct urogram and fu for cysto. [id number] Thierry Balderrama MD [facility] [place] [address] [facility] [address] [place] [address] 02/05/2023 15:55:01 02/05/2023 17:40:55 Microscopic hematuria 868686148 R31.29 Mild hydro is weak call, ureter seen all the way, cysto negative, we agree to follow . Kidney stone 49109030 N2 0.0 No stones seen Health Concerns Section Related Observation LastModified by Organization Detai ls LastModified Time None Recorded Concern Status LastModified by Organization Details LastModified Time None Recorded Advance Directives Directive None Recorded Payers Encounter Date Sequence Insurance Name Policy Number Policy Turner Covered Member ID Turner Member ID Guarantor Name 12/19/2022 1 [facility] (MEDICARE REPLACEMENT HMO) Adrianna Aburto [id number] Re Aburto 02/05/2023 1 [facility] (MEDICARE REPLACEMENT HMO) Adrianna Aburto [id number] Re Aburto Notes Date Note Type Note Provider Name and Address Organization Details Recorded Time 12/19/2022 text/html HematuriaReporte d bypatient.Notes:Pt presents with 3 weeks of left flank and LUQ pain, not sure what started it, no nausea, vomiting, fever or chills. No dysuria , she has some hematuria. She has hx of stones in the past. No utis.CT showed 9mm LLP stone , peripelvic cysts. No ureteral stones, (reviewed). Thierry Balderrama MD [address] [facility], [address], [place], [address], [facility] 12/19/2022 16:32:48 02/05/2023 text/html HematuriaReporte d bypatient.Notes:Pt presents with 3 weeks of left flank and LUQ pain, not sure what started it, no nausea, vomiting, fever or chills. No dysuria , she has some hematuria. She has hx of stones in the past. No utis.CT showed 9mm LLP stone , peripelvic cysts. No ureteral stones, (reviewed).02/05/23Pt is doing fine, ct urogram showed ? mild hydro, no stones. No masses (reviewed). Thierry Balderrama MD [address] [facility], [facility] [address], [place], [address], [place] [facility] [employer] [facility] 02/05/2023 17:45:46 OBGyn Episode No OBEpisode recorded.
--- OUTSIDE RECORDS SUMMARY | 2024-12-11 10:48 | XMS_ITS | Continuity of Care Document ---
Author Organization Health System Address [address] [place] [address] Phone Care Team Providers Care Senior Recruitment Consultant Name Role Phone Unavailable Unavailable Unavailable Allergies, Adverse Reactions, Alerts Substance Reaction Status Criticality No Known allergies Medications Medication Instructions Dosage Effective Dates (start - stop) Status Comments metformin 500 mg tablet take 1 tablet by oral route 2 times every day with morning and evening meals 500 MG - Active Lidoderm 5 % (700 mg/patch) Adhesive Patch apply 1 patch by transdermal route every day (May wear up to 12hours.) 1.00 patch - Active Procedures Procedure Date OFFICE/OUTPATIENT VISIT, EST COLLECTION OF CAPILLARY BLOOD SPECIMEN ( EG, FINGER, HEEL, EAR STICK) OFFICE/OUTPATIENT VISIT, EST OFFICE/OUTPATIENT VISIT, EST COLLECTION OF VENOUS BLOOD BY VENIPUNCTU RE OFFICE/OUTPATIENT VISIT, EST COLLECTION OF VENOUS BLOOD BY VENIPUNCTU RE COLLECTION OF VENOUS BLOOD BY VENIPUNCTU RE COLLECTION OF VENOUS BLOOD BY VENIPUNCTU RE OFFICE/OUTPATIENT VISIT, EST OFFICE/OUTPATIENT VISIT, [facility] Advance Directives Directive Yes / No Effective Date File Name No Information Encounters Encounter Description Practice Location Reason(s) For Visit Diagnoses Date Provider Providers Copied on Encounter [facility], [address], [place], [place], [id number] , [place] [phone] [facility] No Information 0-201 4 No Information OFFICE/OUTPA TIENT VISIT, EST [facility], [address], [place], [place], [address] , [place] tel: [phone] [facility] shoulder pain (chief complaint) Injury of left shoulderDiabete s Mellitus Type 2, Uncomplicated 3 No Information OFFICE/OUTPA TIENT VISIT, EST [facility], [address], [place], [place], [address] , [place] tel: [phone] [facility] diabetes (chief complaint) Type II diabetes mellitusKnee pain 3 No Information OFFICE/OUTPA TIENT VISIT, EST [facility], [address], [place], [place], [address] , [place] tel: [phone] [facility] swollen ankle (chief complaint) Painful ankle 3 No Information OFFICE/OUTPA TIENT VISIT, EST [facility], [address], [place], [place], [address] , [place] tel: [phone] [facility] rx f/u (chief complaint) boils on L thigh (chief complaint) muscle tightness (chief complaint) Type 2 diabetes mellitusObesity Elevated blood pressureLeg abscess 3 No Information [facility], [address], [place], [place], [id number] , [place] tel: [phone] [facility] leg swelling (chief complaint) ObesityAnkle sprainAbdominal painHematochezi aInternal hemorrhoids 2 No Information OFFICE/OUTPA TIENT VISIT, EST [facility], [address], [place], [place], [address] , [place] tel: [phone] [facility] [place] [facility] ankle swelling (chief complaint) Climacteric arthritis involving ankle and foot 2 No Information [facility], [address], [place], [place], [address] , [place] tel: [phone] [facility] Other and unspecified injury to knee, leg, ankle, and foot 2 Matt Joiner. [address], [place], [place], [address], [place]. tel:[phone] OFFICE/OUTPA TIENT VISIT, [facility], [address], [place], [place], [address] , [place] tel: [phone] [facility] RT knee pain (chief complaint) Other and unspecified injury to knee, leg, ankle, and foot 201 2 Matt Joiner. [address], [place], [place], [address], [place]. tel:[phone] Family History Family Member Type Diagnosis Age At Onset Brother Problem (finding) Maternal history of maribel betes mellitus Mother Problem (finding) hypertension Problem (finding) No family history of Ca ncer Payers Payer name Insurance type Covered democrat ID Authoriza tion(s) No Information Social History Type Description Quantity Date Captured Comments Sex Female Smoking Status No Information Chief Complaint And Reason For Visit No Information Reason For Referral Reason For Referral No Information Plan Of Treatment Date Type Action Status Goal Lipid Panel. Due on 013 due Goal TSH. Due on due Goal ALT. Due on due Goal AST. Due on due Goal Urine Microalbumin. Due on A due Goal BMP fasting. Due on 013 due Goal Hemoglobin A1C. Due on due Referral Referred To: Dr Rod Resendez Ordered: Referral: Dr Rod Resendez. Orthopedics. Follow-up and Treat. ordered Referral Ordered: Chronic Disease. ordered Referral Referred To: [facility] [address] [place], [phone] Ordered: Referral: [facility]. Gastroenterology. Diagnostic testing. ordered Referral Referred To: [facility] Ordered: Referral: [facility]. Orthopedics. Evaluate and treat. ordered History Of Present Illness Encounter Date Complaint History Of Prese nt Illness No Information Functional Status Date Functional Assessmen t No Information Instructions Date Instruction Additional Infor mation No Information Assessments Type Assessment Date No Information Patient Care Teams Name Effective Dates (start - stop) Status Members No Information
--- OUTSIDE RECORDS SUMMARY | 2024-12-11 10:48 | XMS_ITS | Clinical Summary ---
Author Organization [facility] Address [address] [id number] Phone Care Team Providers Care Product Responsibility Liaison Name Role Phone Unavailable Primary Care Provider Unavailabl e Allergies Active Allergy Reactions Criticality Noted Date Comments Nsaids 07/11/2022 HX of severe PUD on NSAIDs Medications metFORMIN (Glucophage) 1000 MG tablet Take 1 tablet (1,000 mg) by mouth after breakfast and after evening meal. 60 tablet 1 2 Active Active Problems Problem Noted Date Diagnosed Date Acute swimmer's ear of both sides 07/11/2022 Primary hypertension 07/11/2022 Overview (07/11/2022): On lisinopril 40mg Type 2 diabetes mellitus 07/11/2022 Overview (07/11/2022): A1c 8.6 on 02/17/2022. Metformin 1000mg BID, jardiance 10mg, victoza 1.8mg. On atorvastatin 40mg. PPSV23 in 2013. Social History Tobacco Use Types Packs/Day Years Used Date Smoking Tobacco: Never Assessed Intimate Partner Violence Answer Date R ecorded Feels physically and emotionally safe Not on verónica e 07/07/2023 Fear of partner Not on file 07/07/2023 Housing Stability Answer Date Recorded Housing situation Not on file 07/07/2023 Worried about losing housing Not on file 06/2023 Comments Unknown Sex and Gender Information Value Date Recorded Sex Assigned at Not on file Legal Sex Female 3:49 PM EDT Gender Identity Female 05/28/2022 3:49 PM EDT Sexual Orientation Straight 05/28/2022 3: 49 PM EDT Last Filed Vital Signs Vital Sign Reading Time Taken Comments Blood Pressure 152/75 02/17/2022 10:03 AM CDT Pulse 80 02/17/2022 10:03 AM CDT Temperature 36.5 C (97.7 F) 02/17/2022 10:03 AM CDT Respiratory Rate 24 10/04/2019 10:43 AM DOCKING PILOT Oxygen Saturation - - Inhaled Oxygen Concentration - - Weight 75.5 kg (166 lb 6 oz) 02/17/2022 10:03 AM CDT Height 154.9 cm (5' 1 ) 02/17/2022 10:03 AM CDT Body Mass Index 31.44 02/17/2022 10:03 AM CDT Plan of Treatment Health Maintenance Due Date Last Done Comments Bone Density Scan 1959 CT Colonography 1959 FIT-DNA 1959 FIT 1959 FOBT 1959 Sigmoidoscopy 1959 MMR Vaccines (1 of 1 - Standard series) 02/22/1960 DTaP/Tdap/Td Vaccines (1 - Tdap) 1966 Diabetes: Dental Exam 1969 Diabetes: Foot Exam 1969 Diabetes: Retinopathy Screening 1969 Hepatitis B Screening 1977 Hepatitis C Screening 1977 Well Adult Exam (Age 18+ Annual Physical) 1977 Hepatitis A Vaccines (1 of 2 - Risk 2-dose series) 1978 Hepatitis B Vaccines (3 of 3 - Risk 3-dose series) 06/04/2014 04/09/2014, 11/27/2013 Pneumococcal Vaccine: 50+ Years (2 of 2 - PCV) 11/27/2014 11/27/2013 RSV Vaccines or Age 60+ (1 - Risk 60-74 years 1-dose series) 2019 Mammogram 12/05/2020 12/05/2018, 12/05/2018 Zoster Vaccines (2 of 2) 01/20/2022 11/25/2021 Pap Smear 2022 2019 Diabetes: Urine Protein Screening 07/25/2022 07/25/2021, 04/08/2020 Cervical Cancer Screening 02/22/2024 HPV/Cotest 02/22/2024 2019 COVID-19 Vaccine ( season) 2024 Diabetes: Hemoglobin A1C 07/04/2024 024, 04/03/2024, 02/17/2022, Additional history exists Influenza Vaccine (Season Ended) 2025 Colonoscopy 10/06/2029 10/06/2019, 08/12/2012 Colorectal Cancer Screening 10/06/2029 HIV Screening Completed 04/08/2020 HIB Vaccines Aged Out No longer eligi ble based on patient's age to complete this topic HPV Vaccines Aged Out No longer eligi ble based on patient's age to complete this topic IPV Vaccines Aged Out No longer eligi ble based on patient's age to complete this topic Meningococcal B Vaccine Aged Out No l onger eligible based on patient's age to complete this topic Meningococcal Vaccine Aged Out No peter ricardo eligible based on patient's age to complete this topic Rotavirus Vaccines Aged Out No longer eligible based on patient's age to complete this topic Procedures Procedure Name Priority Date/Time Associated Diagnosis Comments HBG A1C/GLYCOSOLATED HGB Routine 02/17/2022 10:13 AM CDT MICROALBUMIN, RANDOM URINE (W/CREATININE) Routine 07/25/2021 2:13 PM DOCKING PILOT HIV 1/2 ANTIGEN/ANTIBODY, FOURTH GENERATION W/RFL Routine 04/08/2020 2:56 PM CDT HPV RNA, HR E6/E7, TMA Routine 2019 8:07 AM CDT THINPREP TIS PAP Routine 2019 8:07 AM CDT LEGACY COLONSCOPY Routine 08/12/2012 11: 00 PM DOCKING PILOT from Last 3 Months or Most Recently Relevant to Health Maintenance Results * (ABNORMAL) HBG A1C/GLYCOSOLATED HGB (02/17/2022 10:13 AM CDT) HEMOGLOBIN A1C 8.6(A) <6 [facility] 02/17/2022 10:1 3 AM CDT 02/17/2022 10:13 AM CDT Kiran Murray DO LAB BLOOD ORDERABLES Final Resul t Performing Organization Address [facility] Co de Phone Number [facility] * MICROALBUMIN, RANDOM URINE (W/CREATININE) (07/25/2021 2:13 PM DOCKING PILOT) CREATININE UR 51 20 - 275 mg/dL [facility] MICROALBUMIN/CREAT ININE RATIO, RANDOM URINE 8 <30 mcg/mg creat [facility] Comment:The ADA defines abno rmalities in albumin excretion as follows: Albuminuria Category Result (mcg/mg creatinine) Normal to Mildly increased <30 Moderately increased 30-299 Severely increased > OR = 300 The ADA recommends that at least two of three specimens collected within a 3-6 month period be abnormal before considering a patient to be within a diagnostic category. MICROALBUMIN UR 0.4 See Note: mg/dL [facility] Comment:Reference Range: Ref erence Range Not established 07/25/2021 2:13 PM DOCKING PILOT 07/25/2021 2:13 PM DOCKING PILOT Kiran Murray DO LAB URINE ORDERABLES Final Resul t Performing Organization Address [facility] de Phone Number [facility] * HIV 1/2 ANTIGEN/ANTIBODY, FOURTH GENERATION W/RFL (04/08/2020 2:56 PM CDT) HIV 1/2 AG/AB NON-REACT ROSITA NON-REACT ROSITA [facility] Comment:HIV-1 antigen and HI V-1/HIV-2 antibodies were not detected. There is no laboratory evidence of HIV infection. PLEASE NOTE: This information has been disclosed to you from records whose confidentiality may be protected by state law. If your state requires such protection, then the state law prohibits you from making any further disclosure of the information without the specific written consent of the person to whom it pertains, or as otherwise permitted by law. A general authorization for the release of medical or other information is NOT sufficient for this purpose. For additional information please refer to http://education.[employer]/faq/SXE461 (This link is being provided for informational/ educational purposes only.) The performance of this assay has not been clinically validated in patients less than 2 years old. 04/08/2020 2:56 PM CDT 04/08/2020 2:56 PM CDT Al Calvillo Jr. LAB BLOOD ORDERABLES F inal Result Performing Organization Address [facility] Co de Phone Number [facility] * HPV RNA, HR E6/E7, TMA (2019 8:07 AM CDT) HPV RNA, HR E6/E7, TMA Not Detected Not Detected [facility] Comment:This test was perfor med using the APTIMA HPV Assay ([employer] This assay detects E6/E7 viral messenger RNA (mRNA) from 14 high-risk HPV types (16,18,31,33,35,39,45,51,52,56,58,59,66,68). The analytical performance characteristics of this assay have been determined by [employer]. The modifications have not been cleared or approved by the FDA. This assay has been validated pursuant to the CLIA regulations and is used for clinical purposes. 2019 8:07 AM CDT 2019 8:07 AM CDT Al Calvillo Jr. LAB MICROBIOLOGY - GEN ERAL ORDERABLES Final Result Performing Organization Address [facility] de Phone Number [facility] * THINPREP TIS PAP (2019 8:07 AM CDT) CLINICAL INFORMATION None given [facility] PREV. BX NONE GIVEN [facility] PAP SMEAR [facility] Comment:Negative for intraep ithelial lesion or malignancy. COMMENT [email or web address] Comment:EXPLANATORY NOTE: Th e Pap is a screening test for cervical cancer. It is not a diagnostic test and is subject to false negative and false positive results. It is most reliable when a satisfactory sample, regularly obtained, is submitted with relevant clinical findings and history, and when the Pap result is evaluated along with historic and current clinical information. 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 PAP NONE GIVEN [facility] STATEMENT OF ADEQUACY [facility] Comment:Satisfactory for bette luation. Endocervical/transformation zone component absent. LMP NONE GIVEN [facility] SOURCE [facility] Comment:Vagina, Cervix, Endo cervix COMMENT [facility] Comment:This Pap test has be en evaluated with computer assisted technology. 2019 8:07 AM CDT 2019 8:07 AM CDT Al Calvillo Jr. LAB MICROBIOLOGY - GEN ERAL ORDERABLES Final Result [facility] * Legacy Colonoscopy (08/12/2012 11:00 PM DOCKING PILOT) Anatomical Region Laterality Modality Endoscopy 08/12/2012 11:0 0 PM DOCKING PILOT 08/12/2012 11:00 PM DOCKING PILOT Narrative 08/12/2012 11:00 PM DOCKING PILOT Access OnBase Patient Window in the Media Tab above to review report after 08/27/2018. For reports prior to 08/27/2018, reference Claire Procedure Note Provider, [facility] Conversion - 09/05/2022 Access OnBase Patient Window in the Media Tab above to review report after08/27/2018. For reports prior to 08/27/2018, reference Claire [facility] Conversion Provider ENDOSCOPY PROCEDURE ORDERABLES Final Result from Last 3 Months or Most Recently Relevant to Health Maintenance
--- OUTSIDE RECORDS SUMMARY | 2024-12-11 10:49 | XMS_ITS | Referral Summary ---
Author Organization [facility] Address [address] [place] [phone] Care Team Providers Care Banking Center Manager Name Role Phone Diane Longo MD Primary Care Provider [phone] Allergies No known active allergies Medications Ozempic 0.25 mg or 0.5 mg (2 mg/3 mL) pen injector injection Inject 0.5 mg under the skin once a week Every Sunday 4 Active famotidine (PEPCID) 20 mg tablet Take 1 tablet (20 mg total) by mouth every morning 4 Active atorvastatin (LIPITOR) 10 mg tablet Take 1 tablet (10 mg total) by mouth every morning Active lisinopriL (PRINIVIL,ZESTR IL) 40 mg tablet Take 1 tablet (40 mg total) by mouth every morning 4 Active metFORMIN (FORTAMET) 1,000 mg 24 hr tablet Take 1 tablet (1,000 mg total) by mouth daily with breakfast Active lactulose solution 10 gram/15mL Take by mouth daily as needed Active HYDROcodone-kyree taminophen (NORCO) 5-325 mg per tabletIndicatio ns:Pain Take 1 tablet by mouth every 6 (six) hours as needed for pain 20 tablet 4 Active ofloxacin (FLOXIN) 0.3 % otic solution Administer 4 drops into the left ear 2 (two) times a day 10 mL 3 4 Active Active Problems Problem Noted Date Diagnosed Date Cholesteatoma of left ear 04/09/2024 Mixed conductive and sensori neural hearing loss of left ear with restricted hearing of right ear 04/09/2024 Ear drainage, left 01/02/2024 Chronic mastoiditis of left side 01/02/2024 Microscopic hematuria 02/05/2023 Kidney stone 12/19/2022 Primary hypertension 07/11/2022 Overview (03/26/2024): On lisinopril 40mg Urinary tract infection without hematuria 2019 Melena 10/04/2019 Gastrointestinal hemorrhage 10/04/2019 Type 2 diabetes mellitus 04/14/2013 Overview (03/26/2024): A1c 8.6 on 02/17/2022. Metformin 1000mg BID, jardiance 10mg, victoza 1.8mg. On atorvastatin 40mg. PPSV23 in 2013. GERD (gastroesophageal reflux disease) 2 Overview (03/26/2024): Controlled by PPI Overview: Controlled by PPI Diverticulosis 08/13/2012 Social History Tobacco Use Types Packs/Day Years Used Date Smoking Tobacco: Never Smokeless Tobacco: Never Tobacco Cessation:Counseling Given: Not Answered AUDIT-C Answer Date Recorded Q1: How often do you have a drink containing alc ohol? Monthly or less 04/03/2024 Q2: How many drinks containi ng alcohol do you have on a typical day when you are drinking? 3 or 4 04/03/2024 Q3: How often do you have si x or more drinks on one occasion? Never 04/03/2024 Personal Safety Answer Date Recorded Have you ever been in or are you currently in a harmful physical or emotional relationship or is someone making you feel afraid or unsafe? 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 Gender Identity Not on file Sexual Orientation Not on file Last Filed Vital Signs Vital Sign Reading Time Taken Comments Blood Pressure 145/83 04/09/2024 11:27 AM CDT Pulse 80 04/09/2024 11:27 AM CDT Temperature 36.5 C (97.7 F) 04/09/2024 10:34 AM CDT Respiratory Rate 22 04/09/2024 11:27 AM CDT Oxygen Saturation 95% 04/09/2024 11:27 AM CDT Inhaled Oxygen Concentration - - Weight 70.4 kg (155 lb 3.2 oz) 07/23/2024 3:32 P M ART GLASS DESIGNER Height 154.9 cm (5' 1 ) 05/21/2024 2:44 PM CDT Body Mass Index 29.32 05/21/2024 2:44 PM CDT Plan of Treatment Not on file Procedures Procedure Name Priority Date/Time Associated Diagnosis Comments EGFR Routine 04/03/2024 1:05 PM CDT Pre-op testing HEMOGLOBIN A1C Routine 04/03/2024 12:57 PM CDT Pre-op testing Type 2 diabetes mellitus without complication, unspecified whether intermediate project manager insulin use (HCC) SCREENING MAMMOGRAM BILATERAL W KALPANA Schedule Routine, Read Routine (OP Routine) 12/05/2018 12:30 PM CDT Encounter for screening mammogram for malignant neoplasm of breast from Last 3 Months or Most Recently Relevant to Health Maintenance Results * eGFR (04/03/2024 1:05 PM CDT) eGFR >90 >=60 mL/min/1. 73 m2 Comment: Interpretive Data Reference Interval Normal >/= 90 mL/min/1.73m2 Mildly decreased* 60 - 89 mL/min/1.73m2 Mildly to moderately decreased 45 - 59 mL/min/1.73m2 Moderately to severely decreased 30 - 44 mL/min/1.73m2 Severely decreased 15 - 29 mL/min/1.73m2 Kidney Failure < 15 mL/min/1.73m2 *Relative to young adult level Estimated glomerular filtration rate is determined by the 2020 CKD-EPI equation recommended by the National Kidney Foundation (A Unifying Approach to GFR Estimation: Recommendations of the NKF-ASK Task Force on Reassessing the Inclusion of Race in Diagnosing Kidney Disease, JASN 2020). The CKD-EPI equation should not be used for patients with unstable renal function and has not been validated in children and those over 70. Current interpretive data was last reviewed 2021. Blood 04/03/2024 1:05 PM CDT 04/03/2024 1:05 PM CDT Mike Hinojosa MD LAB BLOOD ORDERABLES Final Re sult Performing Organization Address [facility] Co de Phone Number BHAVIN COTTER [address] [place] [address] * (ABNORMAL) Hemoglobin A1c (04/03/2024 12:57 PM CDT) Hgb A1C 10.1(H) 4.0 - 5.6 % Estimated Average Glucose 243 mg/dL BHAVIN COTTER Comment: The ADA recommends reporting an estimated Average Glucose (eAG) with all Hemoglobin A1c results using the equation derived from a study of 507 normal and diabetic adults. Minority populations were underrepresented and children were not included. (Diabetes Care 31:0557-5300, 2008). The eAG is not equivalent to a fasting glucose. Blood 04/03/2024 12:5 7 PM CDT 04/03/2024 1:04 PM CDT Mike Hinojosa MD LAB BLOOD ORDERABLES Final Re sult Performing Organization Address [facility] de Phone Number BHAVIN COTTER [address] [facility] [place] [address] * Screening Mammogram Bilateral W Kalpana (12/05/2018 12:30 PM CDT) Anatomical Region Laterality Modality Breast Bilateral Mammography Narrative 12/10/2018 2:11 PM CDT Mammogram Technique: Bilateral Digital Breast Tomosynthesis, Bilateral C-view 2D Screening mammogram. Views obtained: bilateral craniocaudal and bilateral mediolateral oblique. Computer Aided Detection was performed. Mammogram Findings: The present examination has been compared to prior imaging studies performed at [facility] on 02/26/2013 and 03/05/2014, and at [facility] on 02/22/2012. There are scattered areas of fibroglandular density. There is no suspicious abnormality in either breast. Impression: Annual screening mammography is recommended. OVERALL FINAL ASSESSMENT: BI-RADS CATEGORY 1: Negative. Procedure Note Thierry Whiteside MD - 12/10/2018 Mammogram Technique: Bilateral Digital Breast Tomosynthesis, Bilateral C-view 2D Screening mammogram. Views obtained: bilateral craniocaudal and bilateral mediolateral oblique. Computer Aided Detection was performed. Mammogram Findings: The present examination has been compared to prior imaging studies performed at [facility] on 02/26/2013 and 03/05/2014, and at [facility] on 02/22/2012. There are scattered areas of fibroglandular density. There is no suspicious abnormality in either breast. Impression: Annual screening mammography is recommended. OVERALL FINAL ASSESSMENT: BI-RADS CATEGORY 1: Negative. Mateusz Norman MD IMG MAMMO PROCEDURES Final Re sult from Last 3 Months or Most Recently Relevant to Health Maintenance Insurance [facility] MEDICARE ADVANTAGE [facility] Address: [facility] [address] [place] [address] [place] [address] [facility] MEDICARE ADVANTAGE Care Teams Banking Center Manager Relationship Specialty Start Date End Date Diane Longo MD [address] [place] [id number] PCP - General Emergency Medicine 01/17/24
--- OUTSIDE RECORDS SUMMARY | 2024-12-11 10:49 | XMS_ITS | Clinical Summary ---
Author Organization [facility] Address [address] [place] [id number] Care Team Providers Care Chief Unit Forester Name Role Phone Diane Longo MD Primary Care Provider [phone] Allergies No known active allergies Medications Ozempic [...] PPI Overview: Controlled by PPI Diverticulosis 08/13/2012 Surgical History Surgery Date Site/Laterality Comments EAR SURGERY at age 9 yrs - a tube put in COLONOSCOPY SECTION x1 Medical History Medical History Date Comments Arthritis High blood pressure Type 2 diabetes mellitus (HCC) Chronic mastoiditis of left side Depression Family History Relation Name Status Comments Father Mother Social History Tobacco Use Types Packs/Day Years [...] on file Legal 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 Gender Identity Not on file Sexual Orientation Not on file Obstetrics History Last Filed Vital Signs Vital Sign Reading Time Taken Comments Blood Pressure 145/83 04/09/2024 11:27 AM CDT Pulse 80 04/09/2024 11:27 AM CDT Temperature 36.5 C (97.7 F) 04/09/2024 10:34 AM CDT Respiratory Rate 22 04/09/2024 11:27 AM CDT Oxygen Saturation 95% 04/09/2024 11:27 AM CDT Inhaled Oxygen Concentration - - Weight 70.4 kg (155 lb 3.2 oz) 07/23/2024 3:32 P M MEDICAL CODING INSTRUCTOR Height 154.9 cm (5' 1 ) 05/21/2024 2:44 PM CDT Body Mass Index 29.32 05/21/2024 2:44 PM CDT Plan of Treatment Health Maintenance Due Date Last Done Comments Albumin Creatinine Ratio, Urine 1959 Cervical Cancer Screening 1959 Colon Cancer Screening-Colonoscopy 1959 Depression Screening 1959 Hepatitis C Screening 1959 Osteoporosis Screening-Bone Density Scan 1959 Dilated Eye Exam 1959 Foot Exam 1959 Lipid Panel 1959 DTaP/Tdap/Td Vaccine (1 - Tdap) 1970 Hepatitis B Screening 1977 Pneumococcal vaccine 65+ (1 of 2 - PCV) 1978 Zoster Vaccine (1 of 2) 2009 Breast Cancer Screening-Mammogram 12/06/2019 12/05/2018, 03/05/2014, 02/26/2013 Well Visit 65+ 02/22/2024 Influenza Vaccine (#1) 2024 Hemoglobin A1C 10/04/2024 04/03/2024, 10/05/2019 eGFR 04/03/2025 04/03/2024 Fall Risk Assessment 04/09/2025 04/09/2024 Procedures Procedure Name Priority Date/Time Associated Diagnosis Comments EGFR Routine 04/03/2024 1:05 PM CDT Pre-op testing HEMOGLOBIN A1C Routine 04/03/2024 12:57 PM CDT Pre-op testing Type 2 diabetes mellitus without complication, unspecified whether terminal press operator insulin use (HCC) SCREENING MAMMOGRAM BILATERAL W [...] MD LAB BLOOD ORDERABLES Final Re sult [facility] [address] Department [place] [address] * (ABNORMAL) Hemoglobin A1c (04/03/2024 12:57 PM CDT) Hgb A1C 10.1(H) 4.0 - 5.6 % Estimated Average Glucose 243 mg/dL [facility] Comment: The ADA recommends reporting an estimated Average Glucose (eAG) with all Hemoglobin A1c results using the equation derived from a study of 507 normal and diabetic adults. Minority populations were underrepresented and children were not included. (Diabetes Care 31:5958-8619, 2008). The eAG is not equivalent to a fasting glucose. Blood 04/03/2024 12:5 7 PM CDT 04/03/2024 1:04 PM CDT us Mike Hinojosa MD LAB BLOOD ORDERABLES Final Re sult [facility] [address] [facility] Department [place] [address] * Screening Mammogram Bilateral W Kalpana (12/05/2018 12:30 PM CDT) Anatomical Region Laterality Modality Breast Bilateral Mammography Narrative 12/10/2018 2:11 PM CDT Mammogram Technique: Bilateral Digital Breast Tomosynthesis, Bilateral C-view 2D Screening mammogram. Views obtained: bilateral craniocaudal and bilateral mediolateral oblique. Computer Aided Detection was performed. Mammogram Findings: The present examination has been compared to prior imaging studies performed at [facility] on 02/26/2013 and 03/05/2014, and at [facility] on 02/22/2012. There are scattered [...] compared to prior imaging studies performed at [facility] on 02/26/2013 and 03/05/2014, and at [facility] on 02/22/2012. There are scattered areas of fibroglandular density. There is no suspicious abnormality in either breast. Impression: Annual screening mammography is recommended. OVERALL FINAL ASSESSMENT: BI-RADS CATEGORY 1: Negative. Mateusz Norman MD IMG MAMMO PROCEDURES Final Re sult from Last 3 Months or Most Recently Relevant to Health Maintenance Insurance [facility] MEDICARE ADVANTAGE [id number] [facility] [place] [address] MEDICARE ADVANTAGE Care Teams Chief Unit Forester Relationship Specialty Start Date End Date Diane Longo MD [address] [place] [address] PCP - General Emergency Medicine 01/17/24
--- OUTSIDE RECORDS SUMMARY | 2024-12-11 10:49 | XMS_ITS | CONTINUITY OF CARE DOCUMENT ---
Author Name viki drew Address Unknown Organization [facility] Address [address] [place] [address] Phone [phone] Care Team Providers Care Instrumentation And Controls Technician Name Role Phone Jasvir Cannon MD Unavailable INSURANCE PROVIDERS Payer name Policy type / Coverage type [employer] party ID SELF PAY [id number]
--- OUTSIDE RECORDS SUMMARY | 2024-12-11 10:49 | XMS_ITS | Clinical Summary ---
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 This disclosure is being madepursuant to the Care Everywhere program and may not contain all information available regarding this patient. Last updated 18.[facility] Allergies No known active allergies Medications * Be aware that medications may not be up to date on this document. Alwaysverify current medications with the patient. DULoxetine (CYMBALTA) 60 MG capsule Take 60 mg by mouth at bedtime Active lisinopril (PRINIVIL; ZESTRIL) 40 MG tablet Take 40 mg by mouth once daily Active metFORMIN (GLUCOPHAGE) 1000 MG tablet 2 times daily with morning and evening meal 2 Active Liraglutide (VICTOZA SC) Active Pantoprazole Sodium (PROTONIX PO) Take 1 tablet by mouth every evening Active oxyCODONE (OXY-IR) 5 MG capsule Take 1 (one) capsule by mouth every 6 hours as needed for Pain 8 capsule 2 Active Additional Information Patient taking differently:5 mg Oral EVERY 6 HOURS PRN, Pain,(No instructions reported), Reported on 01/11/2022 Active Problems Problem Noted Date Diagnosed Date Urinary tract infection without hematuria 2019 Abdominal pain, epigastric 10/04/2019 Melena 10/04/2019 Gastrointestinal hemorrhage 10/04/2019 Diabetes mellitus 04/14/2013 GERD (gastroesophageal reflux disease) 2 Overview (03/15/2020): Controlled by PPI Overview: Controlled by PPI Diverticulosis 08/13/2012 Family History Medical History Relation Name Comments Hypertension Mother Relation Name Status Comments Mother Social History Tobacco Use Types Packs/Day Years Used Date Smoking Tobacco: Never Smokeless Tobacco: Never Tobacco Cessation:Counseling Given: No Alcohol Use Standard Drinks/Week Comments Yes 4.2 (1 standard drink = 0.6 oz p ure alcohol) once monthly Comments No Sex and Gender Information Value Date Recorded Sex Assigned at Not on file Legal 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 Gender Identity Not on file Sexual Orientation Not on file Last Filed Vital Signs Vital Sign Reading Time Taken Comments Blood Pressure 128/83 01/11/2022 2:58 PM CDT Pulse 89 01/11/2022 2:58 PM CDT Temperature 36.8 C (98.2 F) 01/11/2022 2:58 PM CDT Respiratory Rate 61 12/29/2021 10:1 5 AM CDT Oxygen Saturation 97% 01/11/2022 2:58 PM CDT Inhaled Oxygen Concentration - - Weight 73.4 kg (161 lb 12.8 oz) 01/11/2022 2:58 PM CDT Height 154.9 cm (5' 1 ) 01/11/2022 2:58 PM CDT Body Mass Index 30.57 01/11/2022 2:58 PM CDT Plan of Treatment Health Maintenance Due Date Last Done Comments BONE DENSITY TESTING 1959 COLOGUARD (AGES 45-75) - COLON CA SCREENING 1959 CT COLONOGRAPHY - COLON CA SCREENING 1959 FIT - COLON CA SCREENING 1959 FLEX SIG - COLON CA SCREENING 1959 MEDICARE AWV 12 MONTHS 1959 PAP SMEAR 1959 HIV SCREENING 1974 HEPATITIS C SCREENING 02/16/1977 DTAP/TDAP/TD VACCINES (1 - Tdap) 1978 PNEUMOCOCCAL VACCINE 50+ (1 of 2 - PCV) 1978 DIABETES-STATIN 1999 ZOSTER VACCINE (1 of 2) 2009 DIABETES RETINOPATHY SCREENING 03/15/2020 DIABETES-FOOT EXAM WITH MONOFILAMENT 03/15/2020 DIABETES-HGB A1C 03/15/2020 10/05/2019 MAMMOGRAM 12/05/2020 12/05/2018 DIABETES-SERUM CREATININE 03/04/20212019, 10/05/2019, 10/04/2019, Additional history exists COVID-19 VACCINE ( season) 2024 DEPRESSION SCREENING 08/27/2024 DIABETES - URINE PROTEIN SCREENING 08/27/2024 INFLUENZA VACCINE (Season Ended) 2025 07/14/2015, 08/27/2013 COLON MONITORING 10/06/2029 10/06/2019, 10/06/2019 COLONOSCOPY - COLON CA SCREENING 10/06/2029 10/06/2019, 10/06/2019 Colorectal Cancer Screening 10/06/2029 Respiratory Syncytial Virus (RSV) Vaccine Pt: or over 60 yrs (1 - 1-dose 75+ series) 2034 HEPATITIS B VACCINE Aged Out No longe r eligible based on patient's age to complete this topic HIB VACCINE Aged Out No longer eligi ble based on patient's age to complete this topic HPV VACCINE Aged Out No longer eligi ble based on patient's age to complete this topic MENINGOCOCCAL (Group B) VACCINE SHARED DECISION-MAKING Aged Out No longer eligible based on patient's age to complete this topic MENINGOCOCCAL GROUPS A/C/Y/W VACCINE Aged Out No longer eligible based on patient's age to complete this topic Procedures Procedure Name Priority Date/Time Associated Diagnosis Comments COMPREHENSIVE METABOLIC PANEL STAT 03/04/2020 1:15 PM CDT ENDOSCOPY, COLON, SCREENING Routine 10/06/2019 1:30 PM REFERRAL SPECIALIST HEMOGLOBIN A1C Routine 10/05/2019 5:45 AM REFERRAL SPECIALIST Uncontrolled type 2 diabetes mellitus with hyperglycemia from Last 3 Months or Most Recently Relevant to Health Maintenance Results * (ABNORMAL) COMPREHENSIVE METABOLIC PANEL (03/04/2020 1:15 PM CDT) BUN 11 7 - 26 mg/dL 03/04/2020 1:54 PM [facility] Creatinine 0.7 0.6 - 1.2 mg/dL 03/04/2020 1:54 PM [facility] Sodium 138 136 - 145 mmol/L 03/04/2020 1:54 PM [facility] Potassium 4.0 3.5 - 4.5 mmol/L 03/04/2020 1:54 PM [facility] Chloride 103 98 - 107 mmol/L 03/04/2020 1:54 PM [facility] CO2 24 22 - 29 mmol/L 03/04/2020 1:54 PM [facility] Glucose 233(H) 70 - 115 mg/dL 03/04/2020 1:54 PM [facility] Calcium 9.2 8.4 - 10.2 mg/dL 03/04/2020 1:54 PM [facility] Protein Total 7.0 6.0 - 8.3 g/dL 03/04/2020 1:54 PM [facility] Albumin 3.4 3.4 - 5.0 g/dL 03/04/2020 1:54 PM [facility] Bilirubin Total 0.2 0.2 - 1.2 mg/dL 03/04/2020 1:54 PM [facility] Alkaline Phosphatase 109 40 - 150 Units/L 03/04/2020 1:54 PM [facility] ALT 27 0 - 55 Units/L 03/04/2020 1:54 PM [facility] AST 19 5 - 34 Units/L 03/04/2020 1:54 PM [facility] Anion Gap 15 8 - 18 03/04/2020 1:54 PM [facility] BUN/Creatinine Ratio 16 7 - 23 03/04/2020 1:54 PM [facility] Osmolality Calculated 293 270 - 300 mOsm/kg 03/04/2020 1:54 PM [facility] Albumin/Globulin Ratio 0.9(L) 1.1 - 2.3 03/04/2020 1:54 PM [facility] eGFR >60 >60 mL/min/1.7 3 m2 03/04/2020 1:54 PM [facility] Blood BLOOD SPECIMEN / Unknown Venipuncture / Unknown 03/04/2020 1:15 PM CDT 03/04/2020 1:23 PM CDT us Jessa Wu MD LAB - CHEMISTRY ORDERABLES Fin al Result [address] [address], [facility] [phone] * ENDOSCOPY, COLON, SCREENING (10/06/2019 1:30 PM REFERRAL SPECIALIST) Report Endoscopy POC Endoscopy Department Report _ Patient Name: Re Aburto Procedure Date: 10/06/2019 1:30 PM Date of : 1960 Classification: Inpatient Gender: Female Ethnicity: Not or Race: White _ Providers: Lg Rodriguez MD (Attending), Milton Davis MD (Fellow) Referring MD: Procedure: Colonoscopy Indications: Screening for malignant neoplasm in the colon, High risk colon cancer surveillance: Personal history of colonic polyps Medications: Monitored Anesthesia Care Description of Procedure: Pre-Anesthesia Assessment: - Prior to the procedure, a History and Physical was performed, and patient medications and allergies were reviewed. The patient's tolerance of previous anesthesia was also reviewed. The risks and benefits of the procedure and the sedation options and risks were discussed with the patient. All questions were answered, and informed consent was obtained. Prior Anticoagulants: The patient has taken no previous anticoagulant or antiplatelet agents. ASA Grade Assessment: II - A patient with mild systemic disease. After reviewing the risks and benefits, the patient was deemed in satisfactory condition to undergo the procedure. After I obtained informed consent, the scope was passed under direct vision. Throughout the procedure, the patient's blood pressure, pulse, and oxygen saturations were monitored continuously. The [id number]-[id number] was introduced through the anus and advanced to the ileocecal valve. The colonoscopy was somewhat difficult due to poor bowel prep with stool present. Successful completion of the procedure was aided by lavage. The ileocecal valve, appendiceal orifice, and rectum were photographed. The quality of the bowel preparation was fair. Findings: Hemorrhoids were found on perianal exam. Skin tags were found on perianal exam. A 5 mm polyp was found in the proximal ascending colon. The polyp was sessile. The polyp was removed with a cold snare. Resection and retrieval were complete. A single small-mouthed diverticulum was found in the descending colon. The retroflexed view of the distal rectum and anal verge was normal and showed no anal or rectal abnormalities. Estimated Blood Loss: Estimated blood loss was minimal. Complications: No immediate complications. Impression: - Hemorrhoids found on perianal exam. - Perianal skin tags found on perianal exam. - One 5 mm polyp in the proximal ascending colon, removed with a cold snare. Resected and retrieved. - Diverticulosis in the descending colon. - The distal rectum and anal verge are normal on retroflexion view. Recommendation: - Return patient to [facility] for ongoing care. - Advance diet as tolerated today. - Continue present medications. - Await pathology results. - Repeat colonoscopy in 1 year for surveillance due to sub-optimal clean out. - Patient has a contact number available for emergencies. The signs and symptoms of potential delayed complications were discussed with the patient. Return to normal activities tomorrow. Written discharge instructions were provided to the patient. Procedure Code(s): --- Professional --- 99351, Colonoscopy, flexible; with removal of tumor(s), polyp(s), or other lesion(s) by snare technique Diagnosis Code(s): --- Professional --- Z12.11, Encounter for screening for malignant neoplasm of colon Z86.010, Personal history of colonic polyps D12.2, Benign neoplasm of ascending colon K64.9, Unspecified hemorrhoids K64.4, Residual hemorrhoidal skin tags K57.30, Diverticulosis of large intestine without perforation or abscess without bleeding CPT copyright 2016 [employer]. All rights reserved. The codes documented in this report are preliminary and upon commercial finance analyst review may be revised to meet current compliance requirements. Lg Rodriguez MD 10/06/2019 2:51:18 PM This report has been signed electronically. Note Initiated On: 10/06/2019 1:30 PM Number of Addenda: 0 [facility] [address] [place] [address] [facility] 10/06/2019 1:30 PM REFERRAL SPECIALIST Lg Rodriguez MD GI PROCEDURE ORDERABLES Edited Result - Final [facility] * (ABNORMAL) HEMOGLOBIN A1C (10/05/2019 5:45 AM REFERRAL SPECIALIST) Hemoglobin A1c 9.0(H) 4.4 - 6.3 % 10/06/2019 9:37 AM REFERRAL SPECIALIST [facility] Estimated Average Glucose 212 mg/dL 10/06/2019 9:37 AM [facility] Comment: HbA1c Interpretation: Treatment target values recommended by ADA and other clinical organizations should be used to evaluate metabolic control in patients. Treatment Target Values: Normal : < 5.7% Pre-diabetes: 5.7-6.4% Diabetes: Equal to or greater than 6.5% Reference: [place] [employer] Standards of Care in Diabetes -2014 In patients 70 years and older consider HbA1c target range of 7.0-7.5% Reference: Diabetes Mellitus in Older People: Position Statement on behalf of the International Association of Gerontology and Geriatrics (IAGG), the Diabetes Working Alliance Party for Older People (EDWPOP), and the International Task Force of Experts in Diabetes. Cecilio Hinds et al. J [place] [employer]. 2012 Test results diagnostic of diabetes should be repeated for confirmation. The Sebia Capillary 2 assay for the measurement of HbA1c is a National Glycohemoglobin Standardization Program (NGSP)certified method. Blood BLOOD SPECIMEN / Unknown Lab Venipuncture / Unknown 10/05/2019 5:45 AM REFERRAL SPECIALIST 10/05/2019 6:04 AM REFERRAL SPECIALIST Paul Murphy MD LAB - CHEMISTRY ORDERABLES Final Result [facility] [address] [place] [address], [facility] [phone] from Last 3 Months or Most Recently Relevant to Health Maintenance Insurance MEDICARE [facility] MEDICARE Advance Directives * Full Code (Latest Code Status on File) Date Activated Date Inactivated Comments 10/04/2019 8:30 PM 10/06/2019 7:50 PM Care Teams Bagging Machine Operator Relationship Specialty Start Date End Date Al Calvillo Jr., MD PCP - General Student Resident 03/04/20 Karin Blakely MD [address] [place] [address] PCP - Attributed-[facility] 10/25/24
--- OUTSIDE RECORDS SUMMARY | 2024-12-11 10:49 | XMS_ITS | Clinical Summary ---
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 Gender Identity Not on file Sexual Orientation Not on file Plan of Treatment Health Maintenance Due Date Last Done Comments Colorectal Cancer Screening Colonoscopy (10 Years) 1959 Hepatitis C 1977 DTaP, Tdap and Td Vaccines ( 1 - Tdap) 1978 Mammogram Screening 1999 Zoster Vaccines (1 of 2) 2009 Dexa Scan (General) 02/22/2024 Pneumococcal Vaccine: 50+ Ye ars (1 of 1 - PCV) 02/22/2024 COVID-19 Vaccine (1 - 2023-2 5 season) 2024 RSV Immunization or 60+ Years (1 - 1-dose 75+ series) 2034 Meningococcal B Vaccine Aged Out No l onger eligible based on patient's age to complete this topic Meningococcal Vaccine Aged Out No peter ricardo eligible based on patient's age to complete this topic Pneumococcal Vaccine: Pediat rics (0 to 5 Years) and At-Risk Patients (6 to 49 Years) Aged Out No longer eligible b ased on patient's age to complete this topic RSV Immunizations Under 20 Months Aged Out No longer eligible based on patient's age to complete this topic
== END 2024-12-11 10:03 | disposition home or self-care (01) ==
LOC: ANHSURGERY 10:09
PROVIDERS: Anesthesiology; PCP Emergency Medicine; Visit Provider Orthopaedic Surgery
DX: I10 Essential (primary) hypertension (principal); E11.9 Type 2 diabetes mellitus without complications
CPT/HCPCS: 36415; 80048; 93005

== ENCOUNTER 2024-12-19 01:14 | Day surgery (SDC) | payer MEDICARE, SELFPAY ==
--- NOTE | 2024-12-08 15:07 | PC.NURSE ---
Report to the Outpatient Waiting Room, entrance under the green pavilion located off [facility], at time __6 AM on date _12/19/24 . Planned Procedure Time: __7:30 AM .? Time changes happen often and if your time is changed the preop area will call you the afternoon before. - You and your visitor will be asked to self-screen and do not enter if you have any COVID symptoms. Please call surgeon if you need to reschedule. - A mask is optional within the hospital at this time. Patients may have clear liquids (water, carbonated beverages, clear teas, apple juice) until 3 hours prior to surgery ( 4;30 AM) with a maximum of 20 ounces. - No food from midnight until time of surgery and no smoking, or chewing tobacco (or any form of nicotine). No chewing gum, candy or mints. Take only the following medications with a SIP of water on the morning of surgery: ___HYDROCODONE IF NEEDED FOR PAIN DO NOT STOP ANY OF YOUR OTHER PRESCRIPTION MEDICATIONS PRIOR TO SURGERY EXCEPT THE FOLLOWING Hold all vitamins and supplements for 3 days per anesthesiologist. Medications to discontinue per physician NONE Please no make-up, nail djiboutian, hairspray, perfume, deodorant, or body powder the day of surgery.? No jewelry (including any body piercings) or valuables the day of surgery, leave them at home.? Please take a shower or bath the night before, or the morning of, surgery with an antibacterial soap.? Wear comfortable, loose fitting clothing.? Children are encouraged to wear pajamas. - Jewelry must be removed prior to entering the operating room.? Rings and piercings that are not removed may be cut off. - The hospital will not accept responsibility for valuables.? - Please leave all valuables, including medications, at home the day of surgery. If you are going home after surgery, a licensed solo truck driver must drive you home.? - NO public transportation without another adult if you receive anesthesia. - We recommend that an adult stay with you for 24 hours following discharge. - We also recommend that you do not drive, make important decision, drink alcoholic beverages, or take any drugs that were not prescribed by your health care provider for at least 24 hours after your discharge time. Follow any additional instructions given to you from your surgeon. Telephone instructions given to ___PATIENT and asked if any additional questions and then verbalized understanding. Patient advised to call surgeon office or pre surgery nurse liaison [phone] if any additional questions.
[2024-12-19] VITALS (9 sets, daily range): BP systolic 110–157; BP diastolic 49–74; PULSE 72–93; RESP 14–26; TEMP 36.1–36.3; O2SAT 93–99
--- OUTSIDE RECORDS SUMMARY | 2024-12-19 01:18 | XMS_ITS | Data Portability ---
Author Organization [place] [facility], Main Office Address [address] [place] [address] Assessment No assessment recorded. Plan of Treatment Reminders Order Date Submit Date Provider Last Modified By Organization Details Last Modified Time Details Appointments None recorded. Lab urinalysis, dipstick 2022 023 [email or web address] [facility], [address], [address], 3 17:45:24 urinalysis, dipstick 2022 023 [email or web address] [facility], [address] [address], [place], [address], 3 16:32:45 Referral None recorded. Procedures cystoscopy (PROC) 2022 023 DEONDRE Not available 3 05:01:58 Surgeries None recorded. Imaging CT, urogram 2022 023 [facility] ([facility]), [address] [place], [address], 3 19:26:25 Medication Orders None recorded. Patient TargetsNo targets recorded. Patient InstructionsNo instructions recorded. Reason for Referral None Reported. Results Created Date Observation Date Name Description Value Unit Range Abnormal Flag Note LastModifiedBy Organization Detail LastModifiedTime 12/20/1912/19/2022 urina lysis , dipst ick Leukocytes (reference range: negative amira/ l) Trace Not Available [facility] [address], [address], 12/19/2022 15:44:17 12/20/19 23 12/19/2022 urina lysis , dipst ick Nitrite (reference rage: negative mg/dl) negati ve Not Available [facility] [address], [place], [address], 12/19/2022 15:44:17 12/20/19 23 12/19/2022 urina lysis , dipst ick Urobilinogen (reference range: 0.2-1 mg/dl) 0.2 Not Available [facility] [address], [place], [address], 12/19/2022 15:44:17 12/20/19 23 12/19/2022 urina lysis , dipst ick Protein (reference range: negative mg/dl) Small Not Available [facility] [address], [place], [address], 12/19/2022 15:44:17 12/20/19 23 12/19/2022 urina lysis , dipst ick pH (reference range: 5-7) 5.5 Not Available [facility] [address] [place] [address] [address], [place], [address], 12/19/2022 15:44:17 12/20/19 23 12/19/2022 urina lysis , dipst ick Blood (reference range: negative Nicolás/ l) Large Not Available [facility] [address] [place] [address] [address], [place], [address], 12/19/2022 15:44:17 12/20/19 23 12/19/2022 urina lysis , dipst ick Specific [place] (reference range: 1.005-1.030) 1.020 Not Available [facility] [address], [place], [address], 12/19/2022 15:44:17 12/20/19 23 12/19/2022 urina lysis , dipst ick Ketone (reference range: negative mg/dl) Trace Not Available [facility] [address], [place], [address], 12/19/2022 15:44:17 12/20/19 23 12/19/2022 urina lysis , dipst ick Bilirubin (reference range: negative mg/dl) Negati ve Not Available [facility] [address], [place], [address], 12/19/2022 15:44:17 12/20/19 23 12/19/2022 urina lysis , dipst ick Glucose (reference range: negative mg/dl) 1000 Not Available [facility] [address], [place], [address], 12/19/2022 15:44:17 12/20/19 23 12/19/2022 urina lysis , dipst ick Appearance Slight ly Cloudy Not Available [facility] [address], [place], [address], 12/19/2022 15:44:17 12/20/19 23 12/19/2022 urina lysis , dipst ick Color Dark Yellow Not Available [facility] [address], [place], [address], 12/19/2022 15:44:17 02/06/20 23 02/05/2023 urina lysis , dipst ick Leukocytes (reference range: negative amira/ l) Trace Not Available [facility] [address], [place], [address], 02/05/2023 16:33:08 02/06/20 23 02/05/2023 urina lysis , dipst ick Nitrite (reference rage: negative mg/dl) negati ve Not Available [facility] [address], [place], [address], 02/05/2023 16:33:08 02/06/20 23 02/05/2023 urina lysis , dipst ick Urobilinogen (reference range: 0.2-1 mg/dl) 0.2 Not Available s_ g [facility] [address], [place], [address], 02/05/2023 16:33:08 02/06/20 23 02/05/2023 urina lysis , dipst ick Protein (reference range: negative mg/dl) Negati ve Not Available [facility] [address], [place], [address], 02/05/2023 16:33:08 02/06/20 23 02/05/2023 urina lysis , dipst ick pH (reference range: 5-7) 5.[address] [facility] [address] [facility] [address], [place], [address], 02/05/2023 16:33:08 02/06/20 23 02/05/2023 urina lysis , dipst ick Blood (reference range: negative Nicolás/ l) Non-He molyze d: Trace Not Available [facility] [address], [place], [address], 02/05/2023 16:33:08 02/06/20 23 02/05/2023 urina lysis , dipst ick Specific [place] (reference range: 1.005-1.030) 1.020 Not Available [facility] [place] [address] [facility] [address], [place], [address], 02/05/2023 16:33:08 02/06/20 23 02/05/2023 urina lysis , dipst ick Ketone (reference range: negative mg/dl) Negati ve Not Available [facility] [place] [address] [facility], [place], [address], 02/05/2023 16:33:08 02/06/20 23 02/05/2023 urina lysis , dipst ick Bilirubin (reference range: negative mg/dl) Negati ve Not Available [facility] [place] [address] [facility] [address], [place], [address], 02/05/2023 16:33:08 02/06/20 23 02/05/2023 urina lysis , dipst ick Glucose (reference range: negative mg/dl) Negati ve Not Available [facility] [place] [address] [facility], [place], [address], 02/05/2023 16:33:08 02/06/20 23 02/05/2023 urina lysis , dipst ick Appearance Clear Not Available [facility] [place] [address], [place], [address], 02/05/2023 16:33:08 02/06/20 23 02/05/2023 urina lysis , dipst ick Color Pale Yellow Not Available [facility] [place] [address] [facility], [address], 02/05/2023 16:33:08 01/03/20 23 01/02/2023 CT, urogr am No observ ation record ed. [email or web address] [facility] [address] [place], [address], 01/10/2023 10:00:36 Result Notes None recorded. Problems Name Problem SNOMED Code Status Onset Date Resolution Date Notes Provider Name and Address Organization Details Recorded Time Kidney stone 97625737 Active 2022 Mayte Pachecopanchito null, [facility] 3 16:10:52 Microscopic hematuria 130980550 Active 2022 RITA Meraz, [facility] 3 16:35:02 Problem Notes None recorded. Procedures Surgical History Date Name Laterality Status Provider Name and Address Organization Details Recorded Time Cystoscopy (female) completed Thierry Balderrama MD [address] [facility], [address], [address], [facility] 02/05/2023 17:44:30 Imaging Results Imaging Date Name Status LastModified by Organiz ation Details LastModified Time 01/02/2023 CT, urogram completed [email or web address] [facility] [address] [place], [address], 01/10/2023 10:00:36 Procedure Notes None recorded. Medical [...] cm 82 /min 97.7 [degF] 29.5 kg/m2 02715.4 1 g 96 % 96 % 172 mm[Hg] 92 mm[Hg] Diane Stratton MA [facility] 3 15:32:01 Date Recorded Body height Heart rate Body temperature Oxygen saturation Oxygen saturation in Arterial blood by Pulse oximetry Systolic blood pressure Diastolic blood pressure Provider Name and Address Organization Details Last Updated DateTime 3 154.94 cm 88 /min 98.4 [degF] 96 % 96 % 156 mm[Hg] 135 mm[Hg] Diane Stratton MA [facility] 3 16:53:27 Social History Question Answer Notes LastModified by Organizat ion Details LastModified Time Tobacco Smoking Status Never Smoker PIYUSH Jacobo null, [facility] 12/19/2022 15:42:55 What Is Your Level Of Alcohol Consumption? None [email or web address] Information not available 12/19/2022 What Is Your Level Of Caffeine Consumption? None [email or web address] Information not available 12/19/2022 What Was The Date Of Your Most Recent Tobacco Screening? 12/19/2022 [email or web address] Information not available 12/19/2022 Sex: Unknown Functional Status None recorded. Mental Status None recorded. Family History Relationship Description Onset Age of this Age Resolved Age Notes LastModified by Organization Details LastModified Time Unspecified Relation Diabetes mellitus Not available 2022 15:41:42 Unspecified Relation Kidney stone [email or web address] Not available 15:42:04 Unspecified Relation Hypertensive disorder [email or web address] Not available 2022 15:42:16 Medical History Condition Response KIDNEY STONES Y HYPERTENSION Y Gynecological HistoryNo gynecological history recorded. Obstetrics History GPAL:G 0 P 0 0 0 0 Past Encounters Encounter ID Performer Location Encounter Start Date Encounter Closed Date Diagnosis/Indication Diagnosis SNOMED-CT Code Diagnosis ICD10 Code Diagnosis Note [id number] Thierry Balderrama MD [facility] [place] [address] [facility] [address] [place] [address] 12/19/2022 15:14:26 12/19/2022 16:13:53 Kidney stone 66737356 N20.0 Hematuria and renal stone, nothing to account for pain.. Suggested ct urogram and fu for cysto. [id number] Thierry Balderrama MD [facility] [place] [address] [facility] [address] [place] [address] 02/05/2023 15:55:01 02/05/2023 17:40:55 Microscopic hematuria 155061511 R31.29 Mild hydro is weak call, ureter seen all the way, cysto negative, we agree to follow . Kidney stone 66210522 N2 0.0 No stones seen Health Concerns Section Related Observation LastModified by Organization Detai ls LastModified Time None Recorded Concern Status LastModified by Organization Details LastModified Time None Recorded Advance Directives Directive None Recorded Payers Encounter Date Sequence Insurance Name Policy Number Policy Turner Covered Member ID Turner Member ID Guarantor Name 12/19/2022 1 [facility] (MEDICARE REPLACEMENT HMO) Adrianna Aburto [id number] Re Aburto 02/05/2023 1 [facility] (MEDICARE REPLACEMENT HMO) Adrianna Aburto [id number] Re Aburto Notes Date Note Type Note [...] ureteral stones, (reviewed). Thierry Balderrama MD [address] [facility], [address], [place], [address], [facility] 12/19/2022 16:32:48 02/05/2023 text/html HematuriaReporte d bypatient.Notes:Pt [...] No masses (reviewed). Thierry Balderrama MD [address] [facility], [facility] [address], [place], [address], [place] [facility] [place] [facility] 02/05/2023 17:45:46 OBGyn Episode No OBEpisode recorded.
--- OUTSIDE RECORDS SUMMARY | 2024-12-19 01:18 | XMS_ITS | Clinical Summary ---
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 PROJECT MANAGER Gender Identity Not on file Sexual Orientation [...] lb 3.2 oz) 07/23/2024 3:32 P M LOGISTICS PROJECT MANAGER Height 154.9 cm (5' 1 ) 05/21/2024 [...] 2 diabetes mellitus without complication, unspecified whether medical terminologist insulin use (HCC) SCREENING MAMMOGRAM BILATERAL W [...] LAB BLOOD ORDERABLES Final Re sult [facility] [id number] Department [place] [address] * (ABNORMAL) Hemoglobin A1c (04/03/2024 12:57 PM CDT) Hgb A1C 10.1(H) 4.0 - 5.6 % Estimated Average Glucose 243 mg/dL [facility] COT[facility] Comment: The ADA recommends reporting an estimated Average Glucose (eAG) with all Hemoglobin A1c results using the equation derived from a study of 507 normal and diabetic adults. Minority populations were underrepresented and children were not included. (Diabetes Care 31:7782-0315, 2008). The eAG is not equivalent to a fasting glucose. Blood 04/03/2024 12:5 7 PM CDT 04/03/2024 1:04 PM CDT us Mike Hinojosa MD LAB BLOOD ORDERABLES Final Re sult [facility] [id number] [facility] [place] Department [place] [address] * Screening Mammogram Bilateral W Kalpana (12/05/2018 12:30 PM CDT) Anatomical Region Laterality Modality Breast Bilateral Mammography Narrative 12/10/2018 2:11 PM CDT Mammogram Technique: Bilateral Digital Breast Tomosynthesis, Bilateral C-view 2D Screening mammogram. Views obtained: bilateral craniocaudal and bilateral mediolateral oblique. Computer Aided Detection was performed. Mammogram Findings: The present examination has been compared to prior imaging studies performed at [facility] on 02/26/2013 and 03/05/2014, and at [facility] on 02/22/2012. There are scattered [...] compared to prior imaging studies performed at [facility] on 02/26/2013 and 03/05/2014, and at [facility] on 02/22/2012. There are scattered areas of fibroglandular density. There is no suspicious abnormality in either breast. Impression: Annual screening mammography is recommended. OVERALL FINAL ASSESSMENT: BI-RADS CATEGORY 1: Negative. Mateusz Norman MD IMG MAMMO PROCEDURES Final Re sult from Last 3 Months or Most Recently Relevant to Health Maintenance Insurance [facility] MEDICARE ADVANTAGE [id number] [facility] [place] [address] MEDICARE ADVANTAGE [facility] Address: [facility] [address] [place] [address] Care Teams Stencil Sprayer Relationship Specialty Start Date End Date Diane Longo MD [address] [place] [address] PCP - General Emergency Medicine 01/17/24
--- OUTSIDE RECORDS SUMMARY | 2024-12-19 01:18 | XMS_ITS | CONTINUITY OF CARE DOCUMENT ---
Author Name viki drew Address Unknown Organization [facility] Address [address] [place] [address] Phone [phone] Care Team Providers Care Tube Bender Name Role Phone Jasvir Cannon MD Unavailable INSURANCE PROVIDERS Payer name Policy type / Coverage type Lind[place] red republican ID [id number] PAY [id number]
--- OUTSIDE RECORDS SUMMARY | 2024-12-19 01:18 | XMS_ITS | Clinical Summary ---
Author Organization [facility] Address [address] [place] [address] Care Team Providers Care Calender Wind Up Tender Name Role Phone Rajinder Alexander MD, Al [place] Primary Care Prov ider Karin Blakely MD Unavailable [phone] Source Comments [facility],non-owned Affiliates and Associated Physician Practices is amultiple site organization consisting of ambulatory clinics and hospital sitesin [place], [place], [place] and [place]. This disclosure is being madepursuant to the Care Everywhere program and may not contain all information available regarding this patient. 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 ROLLER OPERATOR Gender Identity Not on file Sexual Orientation [...] ENDOSCOPY, COLON, SCREENING Routine 10/06/2019 1:30 PM DIESEL ROLLER OPERATOR HEMOGLOBIN A1C Routine 10/05/2019 5:45 AM DIESEL ROLLER OPERATOR Uncontrolled type 2 diabetes mellitus with hyperglycemia from Last 3 Months or Most Recently Relevant to Health Maintenance Results * (ABNORMAL) COMPREHENSIVE METABOLIC PANEL (03/04/2020 1:15 PM CDT) BUN 11 7 - 26 mg/dL 03/04/2020 1:54 PM [facility] Creatinine 0.7 0.6 - 1.2 mg/dL 03/04/2020 1:54 PM [facility] Sodium 138 136 - 145 mmol/L 03/04/2020 1:54 PM [facility] Potassium 4.0 3.5 - 4.5 mmol/L 03/04/2020 1:54 PM [facility] Chloride 103 98 - 107 mmol/L 03/04/2020 1:54 PM [facility] CO2 24 22 - 29 mmol/L 03/04/2020 1:54 PM [facility] Glucose 233(H) 70 - 115 mg/dL 03/04/2020 1:54 PM [facility] Calcium 9.2 8.4 - 10.2 mg/dL 03/04/2020 1:54 PM [facility] Protein Total 7.0 6.0 - 8.3 g/dL 03/04/2020 1:54 PM [facility] Albumin 3.4 3.4 - 5.0 g/dL 03/04/2020 1:54 PM [facility] Bilirubin Total 0.2 0.2 - 1.2 mg/dL 03/04/2020 1:54 PM [facility] Alkaline Phosphatase 109 40 - 150 Units/L 03/04/2020 1:54 PM [facility] ALT 27 0 - 55 Units/L 03/04/2020 1:54 PM [facility] AST 19 5 - 34 Units/L 03/04/2020 1:54 PM [facility] Anion Gap 15 8 - 18 03/04/2020 1:54 PM [facility] BUN/Creatinine Ratio 16 7 - 23 03/04/2020 1:54 PM [facility] Osmolality Calculated 293 270 - 300 mOsm/kg 03/04/2020 1:54 PM [facility] Albumin/Globulin Ratio 0.9(L) 1.1 - 2.3 03/04/2020 1:54 PM [facility] eGFR >60 >60 mL/min/1.7 3 m2 03/04/2020 1:54 PM [facility] Blood BLOOD SPECIMEN / Unknown Venipuncture / Unknown 03/04/2020 1:15 PM CDT 03/04/2020 1:23 PM CDT us Jessa Wu MD LAB - CHEMISTRY ORDERABLES Fin al Result [address] [address], [facility] [phone] * ENDOSCOPY, COLON, SCREENING (10/06/2019 1:30 PM DIESEL ROLLER OPERATOR) Report Endoscopy POC Endoscopy Department Report _ [...] view. Recommendation: - Return patient to hospital [facility] for ongoing care. - Advance diet as [...] the patient. Procedure Code(s): --- Professional --- 01367, Colonoscopy, flexible; with removal of tumor(s), polyp(s), or other lesion(s) by snare technique Diagnosis Code(s): --- Professional --- Z12.11, Encounter for screening for malignant neoplasm of colon Z86.010, Personal history of colonic polyps D12.2, Benign neoplasm of ascending colon K64.9, Unspecified hemorrhoids K64.4, Residual hemorrhoidal skin tags K57.30, Diverticulosis of large intestine without perforation or abscess without bleeding CPT copyright 2016 [employer]. All rights reserved. The codes documented in this report are preliminary and upon brand advocate review may be revised to meet current compliance requirements. Lg Rodriguez MD 10/06/2019 2:51:18 PM This report has been signed electronically. Note Initiated On: 10/06/2019 1:30 PM Number of Addenda: 0 [facility] [address] [place] [address] [facility] 10/06/2019 1:30 PM DIESEL ROLLER OPERATOR Lg Rodriguez MD GI PROCEDURE ORDERABLES Edited Result - Final [facility] * (ABNORMAL) HEMOGLOBIN A1C (10/05/2019 5:45 AM DIESEL ROLLER OPERATOR) Hemoglobin A1c 9.0(H) 4.4 - 6.3 % 10/06/2019 9:37 AM DIESEL ROLLER OPERATOR [facility] Estimated Average Glucose 212 mg/dL 10/06/2019 9:37 AM [facility] Comment: HbA1c Interpretation: Treatment target values recommended by ADA and other clinical organizations should be used to evaluate metabolic control in patients. Treatment Target Values: Normal : < 5.7% Pre-diabetes: 5.7-6.4% Diabetes: Equal to or greater than 6.5% Reference: [place] [employer] Standards of Care in Diabetes -2014 In patients 70 years and older consider HbA1c target range of 7.0-7.5% Reference: Diabetes Mellitus in Older People: Position Statement on behalf of the International Association of Gerontology and Geriatrics (IAGG), the Diabetes Working Republican for Older People (EDWPOP), and the International Task Force of Experts in Diabetes. Cecilio Hinds et al. J [employer]. 2012 Test results diagnostic of diabetes should be repeated for confirmation. The Sebia Capillary 2 assay for the measurement of HbA1c is a National Glycohemoglobin Standardization Program (NGSP)certified method. Blood BLOOD SPECIMEN / Unknown Lab Venipuncture / Unknown 10/05/2019 5:45 AM DIESEL ROLLER OPERATOR 10/05/2019 6:04 AM DIESEL ROLLER OPERATOR Paul Murphy MD LAB - CHEMISTRY ORDERABLES Final Result [facility] [address] [place] [address], [facility] [phone] from Last 3 Months or Most Recently Relevant to Health Maintenance Insurance MEDICARE [facility] MEDICARE Advance Directives * Full Code (Latest Code Status on File) Date Activated Date Inactivated Comments 10/04/2019 8:30 PM 10/06/2019 7:50 PM Care Teams Calender Wind Up Tender Relationship Specialty Start Date End Date Al Calvillo Jr., MD PCP - General Student Resident 03/04/20 Karin Blakely MD [address] [place] [address] PCP - Attributed-[facility] 10/25/24
--- OUTSIDE RECORDS SUMMARY | 2024-12-19 01:18 | XMS_ITS | Continuity of Care Document ---
Author Organization [facility] Address [address] [place] [address] Phone Care Team Providers Care Contract Clerk Automobile Name Role Phone Unavailable Unavailable Unavailable Allergies, [...] VENIPUNCTU RE OFFICE/OUTPATIENT VISIT, EST OFFICE/OUTPATIENT VISIT, [facility] Advance Directives Directive Yes / No Effective Date File Name No Information Encounters Encounter Description Practice Location Reason(s) For Visit Diagnoses Date Provider Providers Copied on Encounter [facility], [address], [place], [place], [id number] , [place] [phone] [facility] No Information 0-201 4 No Information OFFICE/OUTPA TIENT VISIT, [facility] [address], [place], [place], [address] , [place] tel: [phone] [facility] shoulder pain (chief complaint) Injury of left shoulderDiabete s Mellitus Type 2, Uncomplicated 3 No Information OFFICE/OUTPA TIENT VISIT, EST [facility], [address], [place], [place], [address] , [place] tel: [phone] [facility] diabetes (chief complaint) Type II diabetes mellitusKnee pain 3 No Information OFFICE/OUTPA TIENT VISIT, EST [facility], [address], [place], [place], [address] , [place] tel: [phone] [facility] swollen ankle (chief complaint) Painful ankle 3 No Information OFFICE/OUTPA TIENT VISIT, EST [facility], [address], [place], [place], [address] , [place] tel: [phone] [facility] rx f/u (chief complaint) boils on L thigh (chief complaint) muscle tightness (chief complaint) Type 2 diabetes mellitusObesity Elevated blood pressureLeg abscess 3 No Information [facility], [address], [place], [place], [address] , [place] tel: [phone] [facility] leg swelling (chief complaint) ObesityAnkle sprainAbdominal painHematochezi aInternal hemorrhoids 2 No Information OFFICE/OUTPA TIENT VISIT, EST [facility], [address], [place], [place], [address] , [place] tel: [phone] [facility] [place] [facility] ankle swelling (chief complaint) Climacteric arthritis involving ankle and foot 2 No Information [facility], [address], [place], [place], [address] , [place] tel: [phone] [facility] Other and unspecified injury to knee, leg, ankle, and foot 2 Matt Joiner. [address], [place], [place], [address], [place]. tel:[phone] OFFICE/OUTPA TIENT VISIT, [facility], [address], [place], [place], [address] , [place] tel: [phone] [facility] RT knee pain (chief complaint) Other and unspecified injury to knee, leg, ankle, and foot 201 2 Matt Joiner. [address], [place], [place], [address], [place]. tel:[phone] Family History Family Member Type Diagnosis Age At Onset Brother Problem (finding) Maternal history of maribel betes mellitus Mother Problem (finding) hypertension Problem (finding) No family history of Ca ncer Payers Payer name Insurance type Covered libertarian ID Authoriza tion(s) No Information Social History Type Description Quantity Date Captured Comments Sex Female Smoking Status No Information Chief Complaint And Reason For Visit No Information Reason For Referral Reason For Referral No Information Plan Of Treatment Date Type Action Status Goal Hemoglobin A1C. Due on due Goal BMP fasting. Due on 013 due Goal Urine Microalbumin. Due on A due Goal AST. Due on due Goal ALT. Due on due Goal TSH. Due on due Goal Lipid Panel. Due on 013 due Referral Referred To: Dr Rod Resendez Ordered: Referral: Dr Rod Resendez. Orthopedics. Follow-up and Treat. ordered Referral Ordered: Chronic Disease. ordered Referral Referred To: [facility] [address] [place], [id number] Ordered: Referral: [facility]. Gastroenterology. Diagnostic testing. ordered Referral Referred To: [facility] Ordered: Referral: [facility]. Orthopedics. Evaluate and treat. ordered History Of Present Illness Encounter Date Complaint History Of Prese nt Illness No Information Functional Status Date Functional Assessmen t No Information Instructions Date Instruction Additional Infor mation No Information Assessments Type Assessment Date No Information Patient Care Teams Name Effective Dates (start - stop) Status Members No Information
--- OUTSIDE RECORDS SUMMARY | 2024-12-19 01:18 | XMS_ITS | Referral Summary ---
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 CUP MACHINE OPERATOR Gender Identity Not on file Sexual [...] lb 3.2 oz) 07/23/2024 3:32 P M PAPER CUP MACHINE OPERATOR Height 154.9 cm (5' 1 ) 05/21/2024 2:44 PM CDT Body Mass Index 29.32 05/21/2024 2:44 PM CDT Plan of Treatment Not on file Procedures Procedure Name Priority Date/Time Associated Diagnosis Comments EGFR Routine 04/03/2024 1:05 PM CDT Pre-op testing HEMOGLOBIN A1C Routine 04/03/2024 12:57 PM CDT Pre-op testing Type 2 diabetes mellitus without complication, unspecified whether terminal block assembler insulin use (HCC) SCREENING MAMMOGRAM BILATERAL W [...] ORDERABLES Final Re sult Performing Organization Address [facility] Co de Phone Number BHAVIN COTTER [address] [place] [address] * (ABNORMAL) Hemoglobin A1c (04/03/2024 12:57 PM CDT) Hgb A1C 10.1(H) 4.0 - 5.6 % Estimated Average Glucose 243 mg/dL BHAVIN COTTER Comment: The ADA recommends reporting an estimated Average Glucose (eAG) with all Hemoglobin A1c results using the equation derived from a study of 507 normal and diabetic adults. Minority populations were underrepresented and children were not included. (Diabetes Care 31:3854-7901, 2008). The eAG is not equivalent to a fasting glucose. Blood 04/03/2024 12:5 7 PM CDT 04/03/2024 1:04 PM CDT Mike Hinojosa MD LAB BLOOD ORDERABLES Final Re sult Performing Organization Address [facility] [[email or web address]] de Phone Number BHAVIN COTTER [address] [facility] [place] [address] * Screening Mammogram Bilateral W Kalpana (12/05/2018 12:30 PM CDT) Anatomical Region Laterality Modality Breast Bilateral Mammography Narrative 12/10/2018 2:11 PM CDT Mammogram Technique: Bilateral Digital Breast Tomosynthesis, Bilateral C-view 2D Screening mammogram. Views obtained: bilateral craniocaudal and bilateral mediolateral oblique. Computer Aided Detection was performed. Mammogram Findings: The present examination has been compared to prior imaging studies performed at [facility] on 02/26/2013 and 03/05/2014, and at [facility] on 02/22/2012. There are [...] compared to prior imaging studies performed at [facility] on 02/26/2013 and 03/05/2014, and at [facility] on 02/22/2012. There are scattered areas of fibroglandular density. There is no suspicious abnormality in either breast. Impression: Annual screening mammography is recommended. OVERALL FINAL ASSESSMENT: BI-RADS CATEGORY 1: Negative. Mateusz Norman MD IMG MAMMO PROCEDURES Final Re sult from Last 3 Months or Most Recently Relevant to Health Maintenance Insurance [facility] MEDICARE ADVANTAGE [facility] [place] [address] [facility] MEDICARE ADVANTAGE Care Teams Heavy Equipment Service Technician Relationship Specialty Start Date End Date Diane Longo MD [address] [place] [id number] PCP - General Emergency Medicine 01/17/24
--- OUTSIDE RECORDS SUMMARY | 2024-12-19 01:18 | XMS_ITS | Data Portability ---
Author Organization [facility] Address [address] [place] [address] Care Team Providers Care Technology Officer Name Role Phone STAR JAMES Primary Care Provider [phone] DIANE HAZEL Primary Care Provider Unavailabl e Assessment No assessment recorded. Plan of Treatment Reminders Order Date Submit Date Provider Last Modified By Organization Details Last Modified Time Details Appointments ANY 2024 02:30P M Diane Hazel MD Not available Not available Not available ANY 2024 03:45P M Diane Hazel MD Not available Not available Not available Lab CMP, serum or plasma 2024 025 DEONDRE [facility], [address], [place], [address], 12/16/2024 18:24:18 hemoglobi n (Hb), fingersti ck, blood 2024 025 [email or web address] In-Office Order, Internal Use Only DO Not Attach Compendium DO Not Attach Compendium, Do Not Delete/merge, [id number] 11/11/2024 16:14:19 lipid panel, serum 2024 025 [email or web address] [facility], [address], [place], [address], 12/09/2024 11:02:44 CMP, serum or plasma 2024 025 [email or web address] [facility], [address], [place], [address], 12/02/2024 12:14:26 CBC 2024 025 [facility], [address], [place], [address], 12/02/2024 12:14:26 albumin/c reatinine , mass ratio, urine 2024 025 [facility], [address], [place], [address], 12/02/2024 12:14:26 HbA1c (hemoglob in A1c), blood 2024 025 DEONDRE [facility], [address], [place], [address], 09/03/2024 19:10:12 lipid panel, serum 2023 024 [facility], [address], [place], [address], 11/20/2024 09:59:27 HbA1c (hemoglob in A1c), blood 2023 024 [email or web address] In-Office Order, Internal Use Only DO Not Attach Compendium DO Not Attach Compendium, Do Not Delete/merge, [id number] 02/11/2024 17:26:15 Referral physical therapist referral - wasting in leg muscles, please help with exercises , diabetic 2024 025 [facility], [address], [place], [address], 12/12/2024 08:56:49 gastroent erologist referral 2023 024 [facility], [address], [place], [address], 02/19/2024 10:50:54 Procedures None recorded. Surgeries None recorded. Imaging MAMMO, screening , digital, bilateral [address] ([facility]), [address] [place], [address], 12/18/2024 15:41:22 XR, shoulder 2024 025 [facility] ([facility]), [address] [place], [address], 09/02/2024 13:35:50 Medication Orders Farxiga 10 mg tablet 2024 025 [facility] #85064, [address] [place], [place], [id number], 11/11/2024 16:14:25 Ozempic 2 mg/dose (8 mg/3 mL) subcutane ous pen injector 2024 025 [facility] #79300, [address] [place] [address], [id number], 11/11/2024 16:14:26 atorvasta tin 40 mg tablet 2024 025 [facility] #41356, [address] [place] [address], [id number], 11/11/2024 16:14:24 lisinopri l 40 mg tablet 2024 025 [facility] #69387, [address] [place] [address], [id number], 11/11/2024 16:14:26 famotidin e 20 mg tablet 2024 025 [facility] #72276, [address] [place], [place], [id number], 11/11/2024 16:14:27 meloxicam 15 mg tablet 2024 025 [facility] #76111, [address] [place] [address], [place], [place], [id number], 11/11/2024 16:14:26 methocarb debora 500 mg tablet 2024 025 [facility]308[facility], [address] [facility], [place], [place], [id number], 11/11/2024 16:14:31 meloxicam 15 mg tablet 2024 025 [facility] #66321, [address], [place], [id number], 09/02/2024 12:17:26 methocarb debora 500 mg tablet 2024 025 [facility] #85820, [address], [place], [id number], 09/02/2024 12:17:28 lactulose 10 gram/15 mL oral solution 2023 025 [facility], [address], [place], [id number], 11/11/2024 16:09:37 Ozempic 0.25 mg or 0.5 mg (2 mg/3 mL) subcutane ous pen injector 2023 024 [facility] #49824, [address], [place], [id number], 09/08/2024 15:41:10 Patient TargetsNo targets recorded. Patient InstructionsNo instructions recorded. Reason for Referral Sink Cutter Referral for Constipation Referring Physician: [facility], Encounter Date: 02/11/2024 Physical Therapist Referral for Body mass index 30+ - obesity wasting in leg muscles, please help with exercises, diabetic Referring Physician: [facility], Encounter Date: 11/11/2024 Results Created Date Observation Date Name Description Value Unit Range Abnormal Flag Note LastModifiedBy Organization Detail LastModifiedTime 02/11/20 24 02/11/2024 HbA1c (hemo globi n A1c), blood HbA1c 10.7 Not Available In-Office Order Internal Use Only DO Not Attach Compendium DO Not Attach Compendium, Do Not Delete/merge, [id number] 02/11/2024 17:09:55 09/02/19 25 09/03/2024 HEMOG LOBIN A1C hemoglobin A1C 10.8 % 4.8-5. 6 above high normal Predi abete s: 5.7 - 6.4 Diabe roe: >6.4 Glyce connie contr ol for adult s with diabe roe: <7.0 Not Available [facility] ([facility]) [address] [facility] [address], [place], [address], 09/03/2024 19:10:12 11/12/19 25 11/11/2024 hemog lobin (Hb), finge rstic k, blood HGB 9.6 Not Available In-Office Order Internal Use Only DO Not Attach Compendium DO Not Attach Compendium, Do Not Delete/merge, [id number] 11/11/2024 15:46:10 12/18/19 25 12/17/2024 HbA1c (hemo globi n A1c), blood HbA1c 8.5% Not Available In-Office Order Internal Use Only DO Not Attach Compendium DO Not Attach Compendium, Do Not Delete/merge, [id number] 12/17/2024 08:57:20 05/23/20 24 05/23/2024 XR, abdom en No observ ation record ed. [email or web address] [place], [address], 05/29/2024 10:37:46 05/23/20 24 05/23/2024 CT, abdom en + pelvi s, w/ contr ast No observ ation record ed. [email or web address] [place], [address], 05/29/2024 10:38:00 09/02/19 09/02/2024 XR, shoul shirley No observ ation record ed. [facility] [place] [address] [place], [address], 09/11/2024 17:54:30 11/25/19 25 XR, shoul shirley No observ ation record ed. [facility] [place] ([facility]) [address] [place], [address], 11/25/2024 15:45:22 11/26/19 25 11/25/2024 MRI, shoul shirley, w/o contr ast No observ ation record ed. [facility] [address], [place], [address], 11/25/2024 18:14:29 Result Notes None recorded. Problems Name Problem SNOMED Code Status Onset Date Resolution Date Notes Provider Name and Address Organization Details Recorded Time Type 2 diabetes mellitus 86018389 Active 2021 Not Available [facility] 3 13:10:31 Essential hypertension 58859871 Active 2021 Not Available [facility] 3 13:10:31 Hyperlipidemi a 64335056 Active 2021 Not Available [facility] 3 13:10:31 Gastroesophag eal reflux disease without esophagitis 352715721 Active 2021 Not Available [facility] 3 13:10:31 Notes:Some problems listed i n Documents: #[id number], #[id number] could not be added to this patient's chart. Please review these documents and add these problems to the patient's chart manually as needed. Problem Notes None recorded. Procedures Surgical History Date Name Laterality Status Provider Name and Address Organization Details Recorded Time Caesarean Section completed Liliana Guzman [place] [facility] 07/19/2022 14:35:18 procedure on ear completed Emilie Almodovar [place] [facility] 09/02/2024 11:01:25 Imaging Results Imaging Date Name Status LastModified by [facility] Details LastModified Time 05/23/2024 XR, abdomen completed [email or web address] [facility] [address] [place], [address], 05/29/2024 10:37:46 05/23/2024 CT, abdomen + pelvis, w/ contrast completed [address] [place], [address], 05/29/2024 10:38:00 09/02/2024 XR, shoulder completed DEONDRE [facility] [address] [place], [address], 09/11/2024 17:54:30 11/24/2024 XR, shoulder completed [facility] ([facility]) [address] [place], [address], 11/25/2024 15:45:22 11/25/2024 MRI, shoulder, w/o contrast completed [facility] [address], [place], [address], 11/25/2024 18:14:29 Procedure Notes None recorded. Medical [...] TAKE 1 TABLET BY MOUTH TWICE DAILY NEEDED FOR PAIN active Not Available Not Available No t Available meloxicam 15 mg tablet TAKE 1 [...] completed Not Available Not Available Not Available Antiseptic Skin Cleanser (chlorhexi dine) 4 % liquid CLEANSE OPERATIV E EXTREMIT Y IN SHOWER EVERY DAY FOR 1 WEEK PRIOR TO SURGERY active Not Available Not Available No t Available Victoza 3-Yves 0.6 mg/0.1 mL (18 mg/3 mL) subcutaneo us pen injector Inject .6 mg subcu daily 09/02 completed Not Available Not Available Not Available Farxiga 10 mg tablet TAKE 1 TABLET BY MOUTH EVERY DAY active Not Available Not Available No t Available Farxiga 5 mg tablet TAKE 1 TABLET [...] t Available Vitals Date Recorded Body height Oxygen saturation Oxygen saturation in Arterial blood by Pulse oximetry Heart rate Systolic blood pressure Diastolic blood pressure Provider Name and Address Organization Details Last Updated DateTime 4 154.94 cm 97 % 97 % 82 /min 122 mm[Hg] 78 mm[Hg] Emilie Almodovar MA [facility] 4 16:22:56 Date Recorded Body height Body mass index (BMI) Body weight Heart rate Body temperature Systolic blood pressure Diastolic blood pressure Provider Name and Address Organization Details Last Updated DateTime 4 154.94 cm 28.8 kg/m2 12462.1 2 g 90 /min 97.2 [degF] 151 mm[Hg] 69 mm[Hg] Marisel Fontenot [facility] 4 12:29:44 Date Recorded Body height Body mass index (BMI) Body weight Oxygen saturation Oxygen saturation in Arterial blood by Pulse oximetry Heart rate Systolic blood pressure Diastolic blood pressure Provider Name and Address Organization Details Last Updated DateTime 5 154.94 cm 30.2 kg/m2 00866.7 8 g 98 % 98 % 88 /min 138 mm[Hg] 68 mm[Hg] Emilie Almodovar MA [facility] 5 11:03:05 Date Recorded Body height Body mass index (BMI) Body weight Oxygen saturation Oxygen saturation in Arterial blood by Pulse oximetry Heart rate Body temperature Systolic blood pressure Diastolic blood pressure Provider Name and Address Organization Details Last Updated DateTime 5 154.94 cm 30 kg/m2 61321.1 9 g 98 % 98 % 88 /min 97.8 [degF] 122 mm[Hg] 80 mm[Hg] Emilie Almodovar MA [facility] 5 15:05:35 Date Recorded Body height Body mass index (BMI) Body weight Oxygen saturation Oxygen saturation in Arterial blood by Pulse oximetry Heart rate Body temperature Systolic blood pressure Diastolic blood pressure Provider Name and Address Organization Details Last Updated DateTime 5 154.94 cm 29.5 kg/m2 98636.4 1 g 98 % 98 % 88 /min 98.1 [degF] 122 mm[Hg] 78 mm[Hg] Emilie Almodovar MA [facility] 5 17:09:49 Social History Question Answer Notes LastModified by Organizat ion Details LastModified Time Tobacco Smoking Status Never Smoker Liliana Guzman MA [facility], [facility] 07/19/2022 14:33:56 Do You Have An Advance [...] Do You Have A Medical Power Of Cafe Helper? No [email or web address] Information not available 08/11/2022 What Was The Date Of Your Most Recent Tobacco Screening? 12/16/2024 Information not available 12/16/2024 What Is Your Relationship Status? Information not [...] What Date Was Tobacco Cessation Counseling Provided? 12/16/2024 Information not available 12/16/2024 Do You Or Have You Ever Used [...] High Cholesterol Y Hepatitis N Heart Attack (CO) N Heart Failure N Gynecological History Statement/Question [...] SNOMED-CT Code Diagnosis ICD10 Code Diagnosis Note [id number] [facility] (Adult Med) [address] [place] [address] 07/19/2022 14:20:23 07/19/2022 16:13:06 Adult health examination 089200889 Z00.00 Pt is 62 yo F with history of DM, HTN, GERD, and HLD presents to establish care. Obesity 805022964 E66.9 BMI 31.6. Recommende d daily exercise with a goal of 150 min/week of moderate-s trenuous activity and a balanced diet with an emphasis on fruits, vegetables , whole grains, legumes, lean protein, and mono/polyu nsaturated fats. Essential hypertension 62445280 I10 BP in clinic is 176/88. Pt states she is in pain and has been out of medication . Advised pt to take BP at home daily and keep log. Will discuss possible med changes at next visit. Discussed DASH diet. Advised goal for BP is <130/80. ER precaution s discussed. RTC in 2 weeks. History of urinary tract infection 0145944460 107 Z87.440 Pt reports recent kidney infection treated with antibiotic s. On PE, she has CVA tenderness and flank pain. UA with blood and small leuks. Will send for culture and treat pending results. Type 2 maribel betes mellitus 31467752 E11.9 Last A1C: unknown. A1c today in [...] supplies ordered. Return in 1 month. Hyperlipidemia 54881916 E78.5 Pt reports history of high cholestero l. Not currently on statin or lipid lowering therapy. Statin is indicated for DM, will start atorvastat in and check lipid panel. Gastroesop hageal reflux disease without esophagitis 665968703 K21.9 Currently only taking famotidine without relief. Will start omeprazole . Referral placed to GI. Diet modificati ons discussed. Screening for malignant neoplasm of colon 921332396 Z12.11 Due for screening Screening for malignant neoplasm of breast 733247996 Z12.31 Due for screening Otitis media 89754824 H6 6.92 Pt has left sided ear pain and drainage x 2 months. Failed two courses of abx. On PE, severe OM noted with postauricu lar tenderness . Concern for mastoiditi s, will obtain CT and refer to ENT. Will treat with cefdinir. ER precaution s discussed. [id number] Clayton Hill MD [facility] [address] [place] [address] 08/07/2022 11:29:29 08/08/2022 09:13:54 Chronic serous otitis media of left ear 418964974 H65.22 keep ear dry follow-up 2 weeks [id number] KUNAL RUELAS [facility] [address] [place] [address] 08/11/2022 09:22:45 08/17/2022 10:27:33 Screening for malignant neoplasm of colon 518479104 Z12.11 last colonoscop y > 5-10 years agoCBC and CMP in chart 07/19/2022 Hematochezia 905681167 K 92.1 await colonoscop y results; likely from hemorrhoid s due to constipati on Epigastric pain 95596169 R10.13 marked tenderness epigastric and LUQ with guarding on exam. Plan to eval with EGD Gastroesop hageal reflux disease without esophagitis 276315312 K21.9 Mild improvemen t with famotidine QHS; remain on famotidine and await EGD results before tailoring treatment Nonulcer dyspepsia 84294 07 K30 [id number] [facility] [address] [place] [address] 08/24/2022 14:06:47 08/25/2022 10:01:44 Chronic otitis media 67409917 H66.92 [id number] [facility] [address] [place] [address] 10/09/2022 11:54:09 10/13/2022 08:37:43 Chronic serous otitis media of left ear 714392192 H65.22 keep ear dry follow-up 2 weeks [id number] KUNAL RUELAS [facility] [address] [place] [address] 10/13/2022 09:47:13 10/16/2022 14:37:47 Internal hemorrhoids 44659522 K64.8 patient to increase fiber. Does not want powder supplement ation. States she plans to purchase OTC fiber gummies. Abdominal pain 99836261 R10.9 Epigastric pain 48191085 R10.13 Diffuse tenderness all 4 quadrants. She has marked tenderness epigastric and RUQ with guarding on exam; recommend abdominal US for further eval.EGD 08/09/2023 duodenal and gastric mucosa WNL.Famoti dine 40 mg QHS helps some. Will try splitting dose to 20 mg BID. [id number] Diane Hazel MD [facility] (Adult Med) [address] [place] [address] 10/30/2023 14:31:40 11/06/2023 15:07:36 Acute left otitis media 630281688 H66.92 Treat with Augmentin. Reassess at follow up. Still may need to see ENT for further evaluation . Type 2 maribel betes mellitus 64296381 E11.9 Due for routine blood work and [...] her diagnoses of diabetes. Chronic constipation 236 273588 K59.09 Will get results of colonoscop y. Will get blood work to look for metabolic reasons for slowed transit time. Recommende d patient avoid drinking juices and make sure to drink enough water. Encouraged her to eat more fiber. Will try fiber supplement . Get abdominal xray. Follow up in six weeks. Pain of le ft ankle joint 2198607464 1860010 M25.572 Will get xray of left ankle due to pain and swelling. Essential hypertension 92898128 I10 Blood pressure controlled today. Continue present medication and continue to monitor. Returning for fasting blood work. Hyperlipidemia 40694721 E78.5 [id number] Diane Hazel MD [facility] (Adult Med) [address] [place] [address] 12/10/2023 14:33:45 12/20/2023 14:57:05 Obesity 069667493 E66.9 Acute left otitis media 146228036 H66.92 History of mastoidect kira. Has been treated with multiple antibiotic s with no success. Has noticed decrease in hearing and continues with pustular drainage. Will refer to different ENT. Pain of ri ght knee joint 7718464850 06531 M25.561 Has had knee injection in the past but it was some time ago. Will review old records. Will get xray. Will send out Lidocaine patch for pain. Try to avoid anti-infla mmatories. Type 2 maribel betes mellitus 82408400 E11.9 Will add Farxiga to help control sugars and albuminuri a. Considered GLP-1 but went with Farxiga due to elevated triglyceri jonathan and risk of pancreatit is. Will have patient get glucose meter and check fasting glucose daily. Advised her to work on diet low in carbohydra roe. Follow up in two months. Constipation 96203569 K5 9.00 Has adjusted diet to increase fiber and has started having regular bowel movements. Will repeat abdominal xray to see if stool burden has resolved. Pain of le ft ankle joint 7966476599 1759401 M25.572 X-ray normal. Swelling may be due to tendon injury. Will make Podiatry referral for further evaluation . Albuminuria 792607532 R8 0.9 Explained to patient that this is an indication that the patient has mild kidney damage due to uncontroll ed diabetes. Stressed the importance of getting control of diabetes. Patient understand s. Try to avoid anti-infla mmatories. Repeat in three months. Hypertriglyceridemia 302 423041 E78.1 Patients triglyceri jonathan elevated. Discussed the risk of pancreatit is if this increases. She will work on diet. Repeat in three months. [id number] MD [facility] (Adult Med) [address] [place] [address] 02/11/2024 16:03:52 02/12/2024 14:31:27 Type 2 diabetes mellitus 05132197 E11.9 Hemoglobin A1C elevated. Also has slightly [...] bring her triglyceri jonathan down. Hypertriglyceridemia 302 444346 E78.1 She will return for a fasting lipid profile. Discussed the added risk of pancreatit is with Ozempic and elevated triglyceri jonathan. She is aware of that and is going to work on diet. We will see what her repeat triglyceri jonathan are. Constipation 56883633 K5 9.00 Continues to complain of occasional constipati on, and had constipati on again on repeat KUB. Will refer her to GI for further evaluation . Ankle edema 35712697 R60 .0 She is seeing orthopedic s for further evaluation . Chronic otitis media [address] of left mastoid for further evaluation . Arthritis of knee 140735 002 M13.869 Pain is controlled now. If pain becomes worse she can reach out for a steroid injection. Albuminuria 051952327 R8 0.9 Mild albuminuri a. Advised patient to stay well hydrated and avoid anti-infla mmatories. Explained to patient the importance of getting diabetes under control to prevent further kidney damage. Will monitor this closely. [id number] KUNAL RUELAS [facility] [address] [place] [address] 03/04/2024 12:03:08 03/05/2024 14:27:12 Chronic constipation 756093693 K59.09 add lactulose to daily miralax Epigastric pain 26483338 R10.13 Diffuse tenderness all 4 quadrants. She has marked tenderness epigastric and RUQ with guarding on exam; recommend abdominal US for further eval. Not seeing results of US in chart...If no improvemen t with symptomati c relief of constipati on, will craig back to US evalEGD 08/09/2023 duodenal and gastric mucosa WNL.Famoti dine 40 mg QHS helps some. Will try splitting dose to 20 mg BID. Continue famotidine 20 mg BID; has enough refills currently Abdominal pain 16926915 R10.9 acid reflux vs. constipati on Internal hemorrhoids 904 69886 K64.8 patient to increase fiber. Does not want powder supplement ation. States she plans to purchase OTC fiber gummies. [id number] MD [facility] (Adult Med) [address] [place] [address] 09/02/2024 10:46:21 09/03/2024 10:54:02 Pain of right shoulder joint 0862341822 8664736 M25.511 Will get x-ray to evaluate for [...] consider MRI. Type 2 maribel betes mellitus 68993018 E11.9 Last Hemoglobin A1C was elevated. Patient has been using Ozempic. Has not been checking sugars. Will get an A1C today and will increase Ozempic if it is elevated, which I suspect it will be. She has a routine follow up in November. [id number] MD [facility] (Adult Med) [address] [place] [address] 11/11/2024 14:54:06 11/12/2024 16:37:20 Pain of right shoulder joint 6482746791 9279195 M25.511 Seeing orthopod next week for right [...] evaluate her cervical spine. Type 2 maribel rony mellitus 93397060 E11.9 Hemoglobin A1C is still elevated. Discussed [...] up. Screening for malignant neoplasm of breast 388320740 Z12.39 Overdue for mammogram. Essential hypertension 92711649 I10 Blood pressure controlled today. Continue present medication . Will follow up fasting for yearly blood work before next appointmen t. Gastroesop hageal reflux disease without esophagitis 265099353 K21.9 No symptoms Hyperlipidemia 70102015 E78.5 Last lipids showed elevated LDL and triglyceri jonathan. Will return for fasting lipid and LFTs at follow up. Body mass index 30+ - obesity 586318850 Z68.30 She has some muscle wasting in her legs and central obesity. Will have her work with physical therapy to find out what she could do at home to help with physical fitness and healthy lifestyle. [id number] MD [facility] (Adult Med) [address] [place] [address] 12/16/2024 16:48:24 12/18/2024 12:15:48 Preoperative state 91375578 Z01.818 Patient presents for clearance of moderate risk orthopedic surgery. She has no history of coronary artery disease. She has low risk of MACE. Her greater than four METS. She is cleared for surgery and no further testing is needed. Type 2 maribel uribe mellitus 17712211 E11.9 Her Hemoglobin A1C was 8.5 today which is actually an improvemen t for her. She will continue to work on diet. I asked her to hold the Flypayga three days prior to surgery due to risk of hypovolemi a and bladder infections . She is taking Ozempic 2 mg weekly which should not interfere with surgery. She will follow up in three months to continue to address her diabetes. Will have her come in to check a CMP to check on renal function. Nontraumat ic rotator cuff tear 606197400 M75.101 Proceeding with surgery. Essential hypertension 73184475 I10 Blood pressure good today. Continue present medication . Health Concerns Section Related Observation LastModified by Organization Detai ls LastModified Time None Recorded Concern Status LastModified by Organization Details LastModified Time None Recorded Advance Directives Directive N: Payers Encounter Date Sequence Insurance Name Policy Number Policy Turner Covered Member ID Turner Member ID Guarantor Name 02/11/2024 1 [facility] (MEDICARE REPLACEMENT/A DVANTAGE - HMO) [id number] Re Aburto [id number] Re Aburto 03/04/2024 1 [facility] (MEDICARE REPLACEMENT/A DVANTAGE - PPO) [id number] Re Aburto [id number] Re Aburto 09/02/2024 1 [facility] (MEDICARE REPLACEMENT/A DVANTAGE - HMO) [id number] Recamila Aburto [id number] Re Lamonte 11/11/2024 1 [facility] (MEDICARE REPLACEMENT/A DVANTAGE - HMO) [id number] Re Aburto [id number] Re Lamonte 12/16/2024 1 [facility] (MEDICARE REPLACEMENT/A DVANTAGE - HMO) [id number] Re Aburto [id number] Re Aburto Notes Date Note Type Note Provider Name and Address Organization Details Recorded Time 02/11/2024 text/html follow up, left ear still [...] history of thyroid cancer or pancreatitis, Diane Hazel MD Attn: Accounting,[address] [facility], [place], [address], [facility] 02/11/2024 18:19:29 03/04/2024 text/html Patient presents today [...] the weight loss. KUNAL RUELAS [address] [place], [address], [facility] 03/04/2024 13:04:07 09/02/2024 text/html here for right [...] not been checking sugars, taking Ozempic Diane Hazel MD Attn: Accounting,[address] [facility], [place], [address], [facility] 09/02/2024 12:57:42 11/11/2024 text/html follow up, continues [...] her monitor, does not sleep well, Diane Hazel MD Attn: Accounting,[address] [place], [address], [facility] 11/11/2024 16:27:17 12/16/2024 text/html follow up, drink s soda every evening, no heart disease, no shortness of breath, never short of breath, Diane Hazel MD Attn: Accounting,[address] [place], [address], [facility] 12/16/2024 18:24:49 OBGyn Episode No OBEpisode recorded.
--- OUTSIDE RECORDS SUMMARY | 2024-12-19 01:18 | XMS_ITS | Clinical Summary ---
Author Organization [facility] Address [address] [phone] Phone Care Team Providers Care Assistant Spa Manager Name Role Phone Unavailable Primary Care Provider [...] On lisinopril 40mg Type 2 diabetes mellitus (HCC ([facility]) 07/11/20 Overview (07/11/2022): A1c 8.6 on 02/17/2022. Metformin [...] CDT Respiratory Rate 24 10/04/2019 10:43 AM AUXILIARY POWERPLANT OPERATOR Oxygen Saturation - - Inhaled Oxygen Concentration [...] RANDOM URINE (W/CREATININE) Routine 07/25/2021 2:13 PM AUXILIARY POWERPLANT OPERATOR HIV 1/2 ANTIGEN/ANTIBODY, FOURTH GENERATION W/RFL Routine 04/08/2020 2:56 PM CDT HPV RNA, HR E6/E7, TMA Routine 2019 8:07 AM CDT THINPREP TIS PAP Routine 2019 8:07 AM CDT LEGACY COLONSCOPY Routine 08/12/2012 11: 00 PM AUXILIARY POWERPLANT OPERATOR from Last 3 Months or Most Recently Relevant to Health Maintenance Results * (ABNORMAL) HBG A1C/GLYCOSOLATED HGB (02/17/2022 10:13 AM CDT) HEMOGLOBIN A1C 8.6(A) <6 [facility] 02/17/2022 10:1 3 AM CDT 02/17/2022 10:13 AM CDT Kiran Murray DO LAB BLOOD ORDERABLES Final Resul t Performing Organization Address [facility] de Phone Number [facility] * MICROALBUMIN, RANDOM URINE (W/CREATININE) (07/25/2021 2:13 PM AUXILIARY POWERPLANT OPERATOR) CREATININE UR 51 20 - 275 mg/dL [...] erence Range Not established 07/25/2021 2:13 PM AUXILIARY POWERPLANT OPERATOR 07/25/2021 2:13 PM AUXILIARY POWERPLANT OPERATOR Kiran Murray DO LAB URINE ORDERABLES Final Resul t Performing Organization Address [facility] de Phone Number [facility] [...] purpose. For additional information please refer to http://[email or web address]/[email or web address] (This link is being provided for informational/ educational purposes only.) The performance of this assay has not been clinically validated in patients less than 2 years old. 04/08/2020 2:56 PM CDT 04/08/2020 2:56 PM CDT Al Calvillo Jr. LAB BLOOD ORDERABLES F inal Result Performing Organization Address [facility] de Phone Number [facility] * HPV RNA, HR E6/E7, TMA (2019 8:07 AM CDT) HPV RNA, HR E6/E7, TMA Not Detected Not Detected [facility] Comment:This test was perfor med using the APTIMA HPV Assay ([employer] This assay detects E6/E7 viral messenger RNA (mRNA) from 14 high-risk HPV types (16,18,31,33,35,39,45,51,52,56,58,59,66,68). The analytical performance characteristics of this assay have been determined by [employer]. The modifications have not been cleared or approved by the FDA. This assay has been validated pursuant to the CLIA regulations and is used for clinical purposes. 2019 8:07 AM CDT 2019 8:07 AM CDT Al Calvillo Jr. LAB MICROBIOLOGY - GEN ERAL ORDERABLES Final Result Performing Organization Address [facility] de Phone Number [facility] * THINPREP TIS PAP (2019 8:07 AM CDT) CLINICAL INFORMATION None given [facility] PREV. BX NONE GIVEN [facility] PAP SMEAR [facility] Comment:Negative for intraep ithelial lesion or malignancy. COMMENT [facility] Comment:EXPLANATORY NOTE: Th e Pap is a screening test for cervical cancer. It is not a diagnostic test and is subject to false negative and false positive results. It is most reliable when a satisfactory sample, regularly obtained, is submitted with relevant clinical findings and history, and when the Pap result is evaluated along with historic and current clinical information. AIRLINE RESERVATION AGENT [facility] Comment:MVB, CT(ASCP) CT scr eening location: [facility] [address] [place] [address] PREV. PAP NONE GIVEN [facility] STATEMENT OF [...] [facility] * Legacy Colonoscopy (08/12/2012 11:00 PM AUXILIARY POWERPLANT OPERATOR) Anatomical Region Laterality Modality Endoscopy 08/12/2012 11:0 0 PM AUXILIARY POWERPLANT OPERATOR 08/12/2012 11:00 PM AUXILIARY POWERPLANT OPERATOR Narrative 08/12/2012 11:00 PM AUXILIARY POWERPLANT OPERATOR Access OnBase Patient Window in the Media [...]
--- OUTSIDE RECORDS SUMMARY | 2024-12-19 01:18 | XMS_ITS | Clinical Summary ---
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
[2024-12-19 06:44] LABS: Glucose Point of Care 143 mg/dl (65-105)
--- NOTE | 2024-12-19 06:44 | P.PNAN_ITS ---
Anes - Initial Pre Proc Eval Procedure: Operation Date: 12/19/24 07:30 Proposed Procedures p Right Rotator Cuff Repair with Biceps Tenodesis, Distal Clavicle Excision - Mack Coronado MD Date/Time: 12/19/24 06:44 Surgeon: Mack Coronado MD Pre Op Diagnosis: rt. rotator cuff tear proximal biceps rupture Patient Data Age: 64 Gender: F Height: 1.55 m Weight: 72.15 kg Allergies Allergy/AdvReac Type Severity Reaction Status Date / Time No Known Allergies Allergy Verified 12/08/24 15:01 Home Medications ?Medication ?Instructions ?Recorded ?Confirmed ?Type chlorhexidine gluconate 4 % 1 applic topical ONCE #237 mL 12/01/24 12/08/24 Rx topical liquid (Hibiclens) clindamycin 1 %-benzoyl peroxide 5 1 applic topical DAILY #25 grams 12/01/24 12/08/24 Rx % topical gel hydrocodone 5 mg-acetaminophen 325 1 tablet PO BID PRN pain #30 tabs 12/02/24 12/08/24 Rx mg tablet atorvastatin 40 mg tablet 40 mg PO DAILY 12/08/24 12/08/24 History dapagliflozin propanediol 10 mg 10 mg PO DAILY 12/08/24 12/08/24 History tablet famotidine 20 mg tablet 20 mg PO DAILY 12/08/24 12/08/24 History lisinopril 40 mg tablet 40 mg PO DAILY 12/08/24 12/08/24 History semaglutide 1 mg/dose (4 mg/3 mL) 1 mg subcut WEEKLY 12/08/24 12/08/24 History subcutaneous pen injector (Ozempic) Laboratory Tests 12/19/24 06:41 POC Capillary Glucose Pending Patient hx anesthesia problems: none Family hx anesthesia problems: none Results Review: All pre-operative results and documents have been reviewed as part of the pre- operative evaluation. [facility] Past Medical History Medical History (Updated 12/19/24 @ 06:45 by Justo Knox DO) Diabetes type 2, controlled GERD (gastroesophageal reflux disease) Hyperlipidemia Hypertension Family History Family History (Updated 11/19/24 @ 15:13 by Maureen Disla) Unknown Diabetes mellitus Hypertension Social History Social History Smoking status: Unknown if ever smoked Substance use type: does not use Living arrangements: with family Gender identity (if verbalized by the patient): Female Spiritual care concerns: No Anes - Eval Final PreProcedure Day of Procedure 12/19/24 06:44 Patient weight: obese Heart: regular rate and rhythm Lungs: clear to auscultation Airway: Mallampati scale class II Neurological: alert and oriented Last oral intake: >/= 8 hours ASA classification: III Emergent: no Anesthetic plan: proceed Anesthesia type and monitoring: general ETT and standard monitoring Results Review: All pre-operative results and documents have been reviewed as part of the pre- operative evaluation. Informed Consent: The patient's anesthetic plan and its attendant risks and benefits were discussed with the patient/family/POA. Questions were solicited and answers provided to the satisfaction of the patient/family/POA.
--- NOTE | 2024-12-19 06:53 | WPDANESPNB ---
Anes - Peripheral Nerve Block Date/Time: 12/19/24 06:53 I have discussed with the patient/family/POA the placement of a peripheral nerve block for post-operative pain management, including associated risks, benefits, complications, and side effects. Alternative methods of post-operative analgesia were detailed. Questions were solicited and answers provided to the satisfaction of the patient/family/POA. Time-Out: A pre-procedural Time-Out was completed immediately before starting the procedure and confirmed: Patient Identification, Site, Procedure, Patient Position and the Availability of Requisite Equipment. Clinical Indications: Acute post-operative pain management requested by the operative surgeon. Nerve Block Insertion Note Anes-nerve block: interscalene right Patient position: supine Skin prep: chlorhexidine Needle: 22 gauge, stimulating, insulated echogenic needle. Needle length: 50 mm Technique: ultrasound Injectate: bupivacaine 0.5% with epi 5 mcg/ml (20cc- no epi) Observations: tolerated well Complications: none Procedure start time:: 736 Procedure end time:: 740
[2024-12-19] MEDS: ACETAMINOPHEN 500 MG TABLET 1000 MG PO (07:05)
[2024-12-19] MEDS: CELECOXIB 200 MG CAPSULE PO (07:05)
[2024-12-19] MEDS: LACTATED RINGERS 1,000 ML 30 ML IV CONT ×2 (07:05→10:49)
--- NOTE | 2024-12-19 07:38 | WPDHPUPDATE1 ---
History and Physical Update Update Date/Time: 12/19/24 07:38 History and Physical has been reviewed, including an updated exam of the patient. There are NO changes in the patient's condition. Risks, benefits, and alternatives have been discussed and questions answered. Patient agrees to proceed with procedure.
[2024-12-19] MEDS: ceFAZolin 2 GM/D5W 50 ML 2 GM/50 ML BAG IVPB (07:45)
--- NOTE | 2024-12-19 10:45 | P.OP_ITS ---
Procedure Note - Detailed Date of Procedure 12/19/24 Pre-op Diagnosis rt. rotator cuff tear proximal biceps rupture Post-op Diagnosis Same Procedure Performed REPAIR RIGHT ROTATOR CUFF WITH BICEPS TENODESIS AND DISTAL CLAVICLE EXCISION Surgeon Mack Coronado MD Anesthesia General Description of Procedure THE PATIENT WAS TAKEN TO THE OPERATING ROOM AND THEN INTUBATED AND PLACED IN THE BEACH CHAIR POSITION. THE RIGHT UPPER EXTREMITY WAS PREPPED AND DRAPED IN THE NORMAL STERILE FASHION. AN INCISION WAS MADE IN BETWEEN THE VERÓNICA-LATERAL ACROMION AND THE AC JOINT. THE CAPSULE OF THE AC JOINT WAS IDENTIFIED. AN INCISION WAS MADE OVER THE AC JOINT . THERE WAS SEVERE DJD WITH LARGE OSTEOPHYTES ON THE CLAVICLE AND ACROMIAL SIDE OF THE JOINT. A DISTAL CLAVICLE RESECTION WAS PREFORMED WELL REMOVAL OF OSTEOPHYTES FROM THE ACROMION. THE WOUND WAS WASHED AND THE CAPSULE WAS APPROXIMATED WITH O VICRYL SUTURE. NEXT THE DELTOID FASCIA WAS IDENTIFIED. A MINI OPEN INCISION WAS MADE THROUGH THE DELTOID MUSCLE EXPOSING THE SUBACROMIAL SPACE. A LIMITED ACROMIOPLASTY WAS PREFORMED. THE ROTATOR CUFF WAS IDENTIFIED. THERE WAS A FULL THICKNESS TEAR. IT MEASURED APPROXIMATELY 2.5 CM X 2 CM. THE BICEPS TENDON WAS RUPTURED AND THE PROXIMAL STUMP WAS WITHIN THE BICIPITAL GROOVE. THE STUMP WAS TAGGED WITH SUTURE AND RETRACTED. NEXT THE GREATER TUBEROSITY WAS DEBRIDED TO BLEEDING BONE. 3 ARTHREX 5.5 SUTURE ANCHORS WERE PLACED IN TO GOOD BONE AND HAD VERY GOOD BITES. USING #2 FIBER WIRE THE BICEPS STUMP WAS ATTACHED TO THE SURROUNDING PROXIMAL HUMERUS AND TENODESED. NEXT ANDREA-JEANETTE TYPE REPAIRS WERE DONE TO THE ROTATOR CUFF AND THERE WAS GOOD APPROXIMATION TO THE GREATER TUBEROSITY. THE REPAIR WAS EXCELLENT. THERE WAS NO IMPINGEMENT ON THE REPAIR FROM THE ACROMION WITH RANGE OF MOTION. THE WOUND WAS IRRIGATED WITH COPIOUS AMOUNTS OF ANTIBIOTIC SOLUTION BETADINE AND H2O2 SOLUTION WITH STERILE WATER. THE DELTOID MUSCLE WAS REPAIRED WITH #2 FIBER WIRE AND 0 VICRYL SUTURE. THE SUBCUTANEOUS LAYER WAS APPROXIMATED WITH 2-0 VICRYL. THE SKIN WAS APPROXIMATED WITH 3-0 QUIL AND DERMABOND. DEMI RILE DRESSING WAS APPLIED. PATIENT WAS EXTUBATED. Estimated Blood Loss 20 Complications No immediate complications Condition Stable Disposition PACU
[2024-12-19 11:16] LABS: Glucose Point of Care 187 mg/dl (65-105)
== END 2024-12-19 12:40 | disposition home or self-care (01) ==
PROVIDERS: PCP Emergency Medicine; Visit Provider Orthopaedic Surgery
PROC: (CPT 23420; principal; 2024-12-19 07:30)
DX: M75.121 Complete rotator cuff tear or rupture of right shoulder, not specified as traumatic (principal); M75.81 Other shoulder lesions, right shoulder; Z83.3 Family history of diabetes mellitus; Z82.49 Family history of ischemic heart disease and other diseases of the circulatory system; G89.18 Other acute postprocedural pain
CPT/HCPCS: 23430; 23120; 64415; 82948; A9270; C1713; J0690; J1100; J2003; J2250; J2405; J2704; J3010; J7120

== ENCOUNTER 2025-01-09 12:19 | Emergency (ER) | payer MEDICARE, SELFPAY ==
[2025-01-09] VITALS (9 sets, daily range): BP systolic 112–140; BP diastolic 48–77; PULSE 80–94; RESP 16; TEMP 36.6; O2SAT 97–100
--- NOTE | ~2025-01-09 | CT_ITS ---
CTA brain carotid Ordering provider: Devika Torres III, DO History: . dizziness . Comparison: None. Technique: CT angiogram head and neck was performed following timed intravenous injection of contrast . Thin slice axial images and reformatted coronal images were obtained. Three dimensional reformatted images of the brain were also obtained using a [employer] workstation. Radiation reduction technique ut ilized The dose-length product was 1489.14 mGy-cm. 100 mL Omnipaque 350 was given IV. FINDINGS: HEAD: --ANTERIOR AND MIDDLE CEREBRAL ARTERIES AND BRANCHES: Normal caliber and contour. --INTERNAL CAROTID ARTERIES: no significant stenosis. No occlusion. --BASILAR ARTERY AND BRANCHES: Normal caliber and contour. No atheromatous disease. --POSTERIOR CEREBRAL ARTERIES: Normal caliber and contour --POSTERIOR COMMUNICATING ARTERIES: Right is seen and continues as posterior cerebral artery. 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 --ANEURYSM: None visualized. --BRAIN: Normal for patient's age.. --BONES AND SUPERFICIAL SOFT TISSUES: Normal. --PARANASAL SINUSES AND MASTOIDS: Left mastoidectomy. Paranasal sinuses are normal. Cervical NECK: --RIGHT CERVICAL CAROTID SYSTEM: Mild atheromatous disease of the carotid bulb and proximal internal carotid artery without significant stenosis. Percent stenosis per NASCET criteria is 35%. No carotid dissection. Otherwise, no significant atheromatous disease or stenosis of the cervical carotid syste m. Minimal beading is seen in the right internal carotid artery. FMD should be considered. --LEFT CERVICAL CAROTID SYSTEM: Mild atheromatous disease of the carotid bulb and proximal internal c arotid artery without significant stenosis. Percent stenosis per NASCET criteria is 65%. No carotid dissection. Otherwise, no significant atheromatous disease or stenosis of the cervical carotid system. --VERTEBRAL ARTERIES: Dominant left vertebral artery. Otherwise, Normal caliber and contour. --VISUALIZED AORTIC ARCH AND BRANCHING VESSELS: no significant stenosis. --SOFT TISSUES: Normal. --CERVICAL SPINE: Age appropriate degenerative changes. Minimal retrolisthesis at the level of C5-C6. IMPRESSION: 1. CTA head and neck. Percent stenosis per NASCET criteria is 65% on the left and 35% on the right. 2. Minimal beading in the right internal carotid artery. FMD should be considered. Reviewed, dictated and finalized at location A. IMPRESSION: 1. CTA head and neck. Percent stenosis per NASCET criteria is 65% on the left and 35% on the right. 2. Minimal beading in the right internal carotid artery. FMD should be conside red.
--- OUTSIDE RECORDS SUMMARY | 2025-01-09 12:24 | XMS_ITS | Data Portability ---
Author Organization [place] - [facility] [employer], Main Office Address [address] [place] [address] Assessment No assessment recorded. Plan of Treatment Reminders Order Date Submit Date Provider Last Modified By Organization Details Last Modified Time Details Appointments None recorded. Lab urinalysis, dipstick 2022 023 [email or web address] [facility], [address], [address], 3 17:45:24 urinalysis, dipstick 2022 023 [email or web address] [facility], [address] [address], [place], [address], 3 16:32:45 Referral None recorded. Procedures cystoscopy (PROC) 2022 023 DEONDRE Not available 3 05:01:58 Surgeries None recorded. Imaging CT, urogram 2022 023 [facility] ([facility]), [address] [place], [address], 3 19:26:25 Medication Orders None recorded. Patient TargetsNo targets recorded. Patient InstructionsNo instructions recorded. Reason for Referral None Reported. Results Created Date Observation Date Name Description Value Unit Range Abnormal Flag Note LastModifiedBy Organization Detail LastModifiedTime 12/20/1912/19/2022 urina lysis , dipst ick Leukocytes (reference range: negative amira/ l) Trace Not Available [facility] [address], [address], 12/19/2022 15:44:17 12/20/19 23 12/19/2022 urina lysis , dipst ick Nitrite (reference rage: negative mg/dl) negati ve Not Available [facility] [address], [place], [address], 12/19/2022 15:44:17 12/20/19 23 12/19/2022 urina lysis , dipst ick Urobilinogen (reference range: 0.2-1 mg/dl) 0.2 Not Available [facility] [address], [place], [address], 12/19/2022 15:44:17 12/20/19 23 12/19/2022 urina lysis , dipst ick Protein (reference range: negative mg/dl) Small Not Available [facility] [address], [place], [address], 12/19/2022 15:44:17 12/20/19 23 12/19/2022 urina lysis , dipst ick pH (reference range: 5-7) 5.5 Not Available [facility] [address] [place] [address] [address], [place], [address], 12/19/2022 15:44:17 12/20/19 23 12/19/2022 urina lysis , dipst ick Blood (reference range: negative Nicolás/ l) Large Not Available [facility] [address] [place] [address] [address], [place], [address], 12/19/2022 15:44:17 12/20/19 23 12/19/2022 urina lysis , dipst ick Specific [place] (reference range: 1.005-1.030) 1.020 Not Available [facility] [address], [place], [address], 12/19/2022 15:44:17 12/20/19 23 12/19/2022 urina lysis , dipst ick Ketone (reference range: negative mg/dl) Trace Not Available [facility] [address], [place], [address], 12/19/2022 15:44:17 12/20/19 23 12/19/2022 urina lysis , dipst ick Bilirubin (reference range: negative mg/dl) Negati ve Not Available [facility] [address], [place], [address], 12/19/2022 15:44:17 12/20/19 23 12/19/2022 urina lysis , dipst ick Glucose (reference range: negative mg/dl) 1000 Not Available [facility] [address], [place], [address], 12/19/2022 15:44:17 12/20/19 23 12/19/2022 urina lysis , dipst ick Appearance Slight ly Cloudy Not Available [facility] [address], [place], [address], 12/19/2022 15:44:17 12/20/19 23 12/19/2022 urina lysis , dipst ick Color Dark Yellow Not Available [facility] [address], [place], [address], 12/19/2022 15:44:17 02/06/20 23 02/05/2023 urina lysis , dipst ick Leukocytes (reference range: negative amira/ l) Trace Not Available [facility] [address], [place], [address], 02/05/2023 16:33:08 02/06/20 23 02/05/2023 urina lysis , dipst ick Nitrite (reference rage: negative mg/dl) negati ve Not Available [facility] [address], [place], [address], 02/05/2023 16:33:08 02/06/20 23 02/05/2023 urina lysis , dipst ick Urobilinogen (reference range: 0.2-1 mg/dl) 0.2 Not Available [facility]_ [facility] [address], [place], [address], 02/05/2023 16:33:08 02/06/20 23 02/05/2023 urina lysis , dipst ick Protein (reference range: negative mg/dl) Negati ve Not Available [facility] [address], [place], [address], 02/05/2023 16:33:08 02/06/20 23 02/05/2023 urina lysis , dipst ick pH (reference range: 5-7) 5.5 Not Available [facility] [address] [facility] [address], [place], [address], 02/05/2023 16:33:08 02/06/20 23 02/05/2023 urina lysis , dipst ick Blood (reference range: negative Nicolás/ l) Non-He molyze d: Trace [facility] [address], [place], [address], 02/05/2023 16:33:08 02/06/20 23 02/05/2023 urina lysis , dipst ick Specific [place] (reference range: 1.005-1.030) 1.020 Not Available [facility] [address] [facility] [address], [place], [address], 02/05/2023 16:33:08 02/06/20 23 02/05/2023 urina lysis , dipst ick Ketone (reference range: negative mg/dl) Negati ve Not Available [facility] [address] [facility], [place], [address], 02/05/2023 16:33:08 02/06/20 23 02/05/2023 urina lysis , dipst ick Bilirubin (reference range: negative mg/dl) Negati ve Not Available [facility] [address] [facility] [address], [place], [address], 02/05/2023 16:33:08 02/06/20 23 02/05/2023 urina lysis , dipst ick Glucose (reference range: negative mg/dl) Negati ve Not Available [facility] [address] [facility], [place], [address], 02/05/2023 16:33:08 02/06/20 23 02/05/2023 urina lysis , dipst ick Appearance Clear Not Available [facility] [address], [place], [address], 02/05/2023 16:33:08 02/06/20 23 02/05/2023 urina lysis , dipst ick Color Pale Yellow Not Available [facility] [address] [facility], [address], 02/05/2023 16:33:08 01/03/20 23 01/02/2023 CT, urogr am No observ ation record ed. [email or web address] [facility] [address] [place], [address], 01/10/2023 10:00:36 Result Notes None recorded. Problems Name Problem SNOMED Code Status Onset Date Resolution Date Notes Provider Name and Address Organization Details Recorded Time Kidney stone 44001392 Active 2022 Mayte Pachecopanchito null, [facility] [employer] [facility] 3 16:10:52 Microscopic hematuria 118009565 Active 2022 RITA Meraz, [facility] [employer] [facility] 3 16:35:02 Problem Notes None recorded. Procedures Surgical History Date Name Laterality Status Provider Name and Address Organization Details Recorded Time Cystoscopy (female) completed Thierry Balderrama MD [address] [facility], [address], [address], [facility] [employer] [facility] 02/05/2023 17:44:30 Imaging Results Imaging Date Name Status LastModified by Organiz ation Details LastModified Time 01/02/2023 CT, urogram completed [email or web address] [facility] [address] [place], [address], 01/10/2023 10:00:36 Procedure Notes None recorded. Medical [...] cm 82 /min 97.7 [degF] 29.5 kg/m2 63902.4 1 g 96 % 96 % 172 mm[Hg] 92 mm[Hg] Diane Stratton MA [facility] [employer] [facility] 3 15:32:01 Date Recorded Body height Heart rate Body temperature Oxygen saturation Oxygen saturation in Arterial blood by Pulse oximetry Systolic blood pressure Diastolic blood pressure Provider Name and Address Organization Details Last Updated DateTime 3 154.94 cm 88 /min 98.4 [degF] 96 % 96 % 156 mm[Hg] 135 mm[Hg] Diane Stratton MA [facility] [employer] [facility] 3 16:53:27 Social History Question Answer Notes LastModified by Organizat ion Details LastModified Time Tobacco Smoking Status Never Smoker PIYUSH Jacobo null, [facility] [employer] [facility] 12/19/2022 15:42:55 What Is Your Level Of Caffeine Consumption? None [email or web address] Information not available 12/19/2022 What Was The Date Of Your Most Recent Tobacco Screening? 12/19/2022 [email or web address] Information not available 12/19/2022 Sex: Unknown Functional Status Question Answer Note LastModified by Organization D etails LastModified Time What is your level of alcohol consumption? None [email or web address] Information not available 12/19/2022 Mental Status None recorded. Family History Relationship Description Onset Age of this Age Resolved Age Notes LastModified by Organization Details LastModified Time Unspecified Relation Diabetes mellitus [email or web address] Not available 2022 15:41:42 Unspecified Relation Kidney stone [email or web address] Not available 15:42:04 Unspecified Relation Hypertensive disorder [email or web address] Not available 2022 15:42:16 Medical History Condition Response KIDNEY STONES Y HYPERTENSION Y Gynecological HistoryNo gynecological history recorded. Obstetrics History GPAL:G 0 P 0 0 0 0 Past Encounters Encounter ID Performer Location Encounter Start Date Encounter Closed Date Diagnosis/Indication Diagnosis SNOMED-CT Code Diagnosis ICD10 Code Diagnosis Note [id number] Thierry Balderrama MD [facility] [address] [facility] [address] [place] [address] 12/19/2022 15:14:26 12/19/2022 16:13:53 Kidney stone 47506460 N20.0 Hematuria and renal stone, nothing to account for pain.. Suggested ct urogram and fu for cysto. [id number] Thierry Balderrama MD [facility] [address] [facility] [address] [place] [address] 02/05/2023 15:55:01 02/05/2023 17:40:55 Microscopic hematuria 140498636 R31.29 Mild hydro is weak call, ureter seen all the way, cysto negative, we agree to follow . Kidney stone 51166007 N2 0.0 No stones seen Health Concerns Section Related Observation LastModified by Organization Detai ls LastModified Time None Recorded Concern Status LastModified by Organization Details LastModified Time None Recorded Advance Directives Directive None Recorded Payers Encounter Date Sequence Insurance Name Policy Number Policy Turner Covered Member ID Turner Member ID Guarantor Name 12/19/2022 1 [facility] (MEDICARE REPLACEMENT HMO) Adrianna Aburto [id number] Re Aburto 02/05/2023 1 [facility] (MEDICARE REPLACEMENT HMO) Adrianna Aburto [id number] Re Aburto Notes Date Note Type Note [...] ureteral stones, (reviewed). Thierry Balderrama MD [address] [facility], [facility] [address], [place], [address], [facility] 12/19/2022 16:32:48 02/05/2023 text/html HematuriaReporte d [...] No masses (reviewed). Thierry Balderrama MD [address] [facility], [facility] [address], [place], [address], [facility] [employer] 02/05/2023 17:45:46 OBGyn Episode No OBEpisode recorded.
--- OUTSIDE RECORDS SUMMARY | 2025-01-09 12:24 | XMS_ITS | Clinical Summary ---
Author Organization 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
--- OUTSIDE RECORDS SUMMARY | 2025-01-09 12:24 | XMS_ITS | Referral Summary ---
Author Organization [facility] Address [address] [place] [address] Care Team Providers Care Cookee Name Role Phone Diane Longo MD Primary Care Provider [phone] Allergies No known active allergies Medications Ozempic [...] on file Legal Sex Female 8:46 PM SERGEANT OF CORRECTIONS Gender Identity Not on file Sexual Orientation [...] lb 3.2 oz) 07/23/2024 3:32 P M SERGEANT OF CORRECTIONS Height 154.9 cm (5' 1 ) 05/21/2024 2:44 PM CDT Body Mass Index 29.32 05/21/2024 2:44 PM CDT Plan of Treatment Not on file Procedures Procedure Name Priority Date/Time Associated Diagnosis Comments EGFR Routine 04/03/2024 1:05 PM CDT Pre-op testing HEMOGLOBIN A1C Routine 04/03/2024 12:57 PM CDT Pre-op testing Type 2 diabetes mellitus without complication, unspecified whether buttermaker continuous churn insulin use (HCC) SCREENING MAMMOGRAM BILATERAL W [...] ORDERABLES Final Re sult Performing Organization Address [facility] Co de Phone Number BHAVIN COTTER [address] [place] [place] [address] * (ABNORMAL) Hemoglobin A1c (04/03/2024 12:57 PM CDT) Hgb A1C 10.1(H) 4.0 - 5.6 % Estimated Average Glucose 243 mg/dL BHAVIN COTTER Comment: The ADA recommends reporting an estimated Average Glucose (eAG) with all Hemoglobin A1c results using the equation derived from a study of 507 normal and diabetic adults. Minority populations were underrepresented and children were not included. (Diabetes Care 31:0501-6778, 2008). The eAG is not equivalent to a fasting glucose. Blood 04/03/2024 12:5 7 PM CDT 04/03/2024 1:04 PM CDT Mike Hinojosa MD LAB BLOOD ORDERABLES Final Re sult Performing Organization Address [facility] de Phone Number BHAVIN COTTER [address] [facility] [place] [address] * Screening Mammogram Bilateral W Kalpana (12/05/2018 12:30 PM CDT) Anatomical Region Laterality Modality Breast Bilateral Mammography Narrative 12/10/2018 2:11 PM CDT Mammogram Technique: Bilateral Digital Breast Tomosynthesis, Bilateral C-view 2D Screening mammogram. Views obtained: bilateral craniocaudal and bilateral mediolateral oblique. Computer Aided Detection was performed. Mammogram Findings: The present examination has been compared to prior imaging studies performed at [facility] on 02/26/2013 and 03/05/2014, and at [facility] on 02/22/2012. There are [...] compared to prior imaging studies performed at [facility] on 02/26/2013 and 03/05/2014, and at [facility] on 02/22/2012. There are scattered areas of fibroglandular density. There is no suspicious abnormality in either breast. Impression: Annual screening mammography is recommended. OVERALL FINAL ASSESSMENT: BI-RADS CATEGORY 1: Negative. Mateusz Norman MD IMG MAMMO PROCEDURES Final Re sult from Last 3 Months or Most Recently Relevant to Health Maintenance Insurance [facility] MEDICARE ADVANTAGE [facility] Address: [facility] [address] [place] [address] [place] [address] [facility] MEDICARE ADVANTAGE Care Teams Cookee Relationship Specialty Start Date End Date Diane Longo MD [address] [place] [id number] PCP - General Emergency Medicine 01/17/24
--- OUTSIDE RECORDS SUMMARY | 2025-01-09 12:24 | XMS_ITS | Clinical Summary ---
Author Organization [facility] Address [address] [phone] Phone Care Team Providers Care Quoter Name Role Phone Unavailable Primary Care Provider [...] lisinopril 40mg Type 2 diabetes mellitus (HCC ([facility]) 07/11/20 Overview (07/11/2022): A1c 8.6 on [...] CDT Respiratory Rate 24 10/04/2019 10:43 AM MILLWRIGHT INSTRUCTOR Oxygen Saturation - - Inhaled Oxygen Concentration [...] RANDOM URINE (W/CREATININE) Routine 07/25/2021 2:13 PM MILLWRIGHT INSTRUCTOR HIV 1/2 ANTIGEN/ANTIBODY, FOURTH GENERATION W/RFL Routine 04/08/2020 2:56 PM CDT HPV RNA, HR E6/E7, TMA Routine 2019 8:07 AM CDT THINPREP TIS PAP Routine 2019 8:07 AM CDT LEGACY COLONSCOPY Routine 08/12/2012 11: 00 PM MILLWRIGHT INSTRUCTOR from Last 3 Months or Most Recently Relevant to Health Maintenance Results * (ABNORMAL) HBG A1C/GLYCOSOLATED HGB (02/17/2022 10:13 AM CDT) HEMOGLOBIN A1C 8.6(A) <6 [facility] 02/17/2022 10:1 3 AM CDT 02/17/2022 10:13 AM CDT Kiran Murray DO LAB BLOOD ORDERABLES Final Resul t Performing Organization Address [facility] de Phone Number [facility] * MICROALBUMIN, RANDOM URINE (W/CREATININE) (07/25/2021 2:13 PM MILLWRIGHT INSTRUCTOR) CREATININE UR 51 20 - 275 mg/dL [...] erence Range Not established 07/25/2021 2:13 PM MILLWRIGHT INSTRUCTOR 07/25/2021 2:13 PM MILLWRIGHT INSTRUCTOR Kiran Murray DO LAB URINE ORDERABLES Final Resul t Performing Organization Address [facility] de Phone Number [facility] * HIV 1/2 [...] purpose. For additional information please refer to http://education.[employer]/faq/JCW370 (This link is being provided for informational/ educational purposes only.) The performance of this assay has not been clinically validated in patients less than 2 years old. 04/08/2020 2:56 PM CDT 04/08/2020 2:56 PM CDT Al Calvillo Jr. LAB BLOOD ORDERABLES F inal Result Performing Organization Address [facility] de Phone Number [facility] * HPV RNA, HR E6/E7, TMA (2019 8:07 AM CDT) HPV RNA, HR E6/E7, TMA Not Detected Not Detected [facility] Comment:This test was perfor med using the APTIMA HPV Assay ([employer] This assay detects E6/E7 viral messenger RNA (mRNA) from 14 high-risk HPV types (16,18,31,33,35,39,45,51,52,56,58,59,66,68). The analytical performance characteristics of this assay have been determined by [employer]. The modifications have not been cleared or approved by the FDA. This assay has been validated pursuant to the CLIA regulations and is used for clinical purposes. 2019 8:07 AM CDT 2019 8:07 AM CDT Al Calvillo Jr. LAB MICROBIOLOGY - GEN ERAL ORDERABLES Final Result Performing Organization Address [facility] de Phone Number [facility] * THINPREP TIS [...] along with historic and current clinical information. PHOTOGRAPHIC LITHOGRAPHER [facility] Comment:MVB, CT(ASCP) CT scr eening location: [facility] [address] [place] [address] PREV. PAP NONE GIVEN [facility] STATEMENT OF [...] [facility] * Legacy Colonoscopy (08/12/2012 11:00 PM MILLWRIGHT INSTRUCTOR) Anatomical Region Laterality Modality Endoscopy 08/12/2012 11:0 0 PM MILLWRIGHT INSTRUCTOR 08/12/2012 11:00 PM MILLWRIGHT INSTRUCTOR Narrative 08/12/2012 11:00 PM MILLWRIGHT INSTRUCTOR Access OnBase Patient Window in the Media [...]
--- OUTSIDE RECORDS SUMMARY | 2025-01-09 12:24 | XMS_ITS | Clinical Summary ---
Author Organization [facility] [employer] Address [address] [place] [address] Care Team Providers Care Zumba Instructor Name Role Phone Rajinder Alexander MD, [place] Primary Care Prov ider Karin Blakely MD Unavailable [phone] Source Comments [facility] [employer],non-owned Affiliates and Associated Physician Practices is amultiple site organization consisting of ambulatory clinics and hospital sitesin [place], [place], [place] and [place]. This disclosure is being madepursuant to the Care Everywhere program and may not contain all information available regarding this patient. Last updated 18.[facility] [employer] Allergies No known active allergies Medications * [...] on file Legal Sex Female 6:23 PM BOX PRINTING MACHINE OPERATOR Gender Identity Not on file [...] ENDOSCOPY, COLON, SCREENING Routine 10/06/2019 1:30 PM BOX PRINTING MACHINE OPERATOR HEMOGLOBIN A1C Routine 10/05/2019 5:45 AM BOX PRINTING MACHINE OPERATOR Uncontrolled type 2 diabetes mellitus with hyperglycemia from Last 3 Months or Most Recently Relevant to Health Maintenance Results * (ABNORMAL) COMPREHENSIVE METABOLIC PANEL (03/04/2020 1:15 PM CDT) BUN 11 7 - 26 mg/dL 03/04/2020 1:54 PM [facility] Creatinine 0.7 0.6 - 1.2 mg/dL 03/04/2020 1:54 PM [facility] Sodium 138 136 - 145 mmol/L 03/04/2020 1:54 PM [facility] Potassium 4.0 3.5 - 4.5 mmol/L 03/04/2020 1:54 PM [facility] Chloride 103 98 - 107 mmol/L 03/04/2020 1:54 PM [facility] CO2 24 22 - 29 mmol/L 03/04/2020 1:54 PM [facility] Glucose 233(H) 70 - 115 mg/dL 03/04/2020 1:54 PM [facility] Calcium 9.2 8.4 - 10.2 mg/dL 03/04/2020 1:54 PM [facility] Protein Total 7.0 6.0 - 8.3 g/dL 03/04/2020 1:54 PM [facility] Albumin 3.4 3.4 - 5.0 g/dL 03/04/2020 1:54 PM [facility] Bilirubin Total 0.2 0.2 - 1.2 mg/dL 03/04/2020 1:54 PM [facility] Alkaline Phosphatase 109 40 - 150 Units/L 03/04/2020 1:54 PM [facility] ALT 27 0 - 55 Units/L 03/04/2020 1:54 PM [facility] AST 19 5 - 34 Units/L 03/04/2020 1:54 PM [facility] Anion Gap 15 8 - 18 03/04/2020 1:54 PM [facility] BUN/Creatinine Ratio 16 7 - 23 03/04/2020 1:54 PM [facility] Osmolality Calculated 293 270 - 300 mOsm/kg 03/04/2020 1:54 PM [facility] Albumin/Globulin Ratio 0.9(L) 1.1 - 2.3 03/04/2020 1:54 PM [facility] eGFR >60 >60 mL/min/1.7 3 m2 03/04/2020 1:54 PM [facility] Blood BLOOD SPECIMEN / Unknown Venipuncture / Unknown 03/04/2020 1:15 PM CDT 03/04/2020 1:23 PM CDT us Jessa Wu MD LAB - CHEMISTRY ORDERABLES Fin al Result [address] [id number], [facility] [phone] * ENDOSCOPY, COLON, SCREENING (10/06/2019 1:30 PM BOX PRINTING MACHINE OPERATOR) Report Endoscopy POC Endoscopy Department Report [...] the patient. Procedure Code(s): --- Professional --- 41111, Colonoscopy, flexible; with removal of tumor(s), polyp(s), or other lesion(s) by snare technique Diagnosis Code(s): --- Professional --- Z12.11, Encounter for screening for malignant neoplasm of colon Z86.010, Personal history of colonic polyps D12.2, Benign neoplasm of ascending colon K64.9, Unspecified hemorrhoids K64.4, Residual hemorrhoidal skin tags K57.30, Diverticulosis of large intestine without perforation or abscess without bleeding CPT copyright 2016 [employer]. All rights reserved. The codes documented in this report are preliminary and upon glass ribbon machine operator review may be revised to meet current compliance requirements. Lg Rodriguez MD 10/06/2019 2:51:18 PM This report has been signed electronically. Note Initiated On: 10/06/2019 1:30 PM Number of Addenda: 0 [facility] [address] [place] [address] [facility] 10/06/2019 1:30 PM BOX PRINTING MACHINE OPERATOR Lg Rodriguez MD GI PROCEDURE ORDERABLES Edited Result - Final [facility] * (ABNORMAL) HEMOGLOBIN A1C (10/05/2019 5:45 AM BOX PRINTING MACHINE OPERATOR) Hemoglobin A1c 9.0(H) 4.4 - 6.3 % 10/06/2019 9:37 AM BOX PRINTING MACHINE OPERATOR [facility] Estimated Average Glucose 212 mg/dL 10/06/2019 9:[address] [facility] Comment: HbA1c Interpretation: Treatment target values recommended by ADA and other clinical organizations should be used to evaluate metabolic control in patients. Treatment Target Values: Normal : < 5.7% Pre-diabetes: 5.7-6.4% Diabetes: Equal to or greater than 6.5% Reference: [place] [employer] Standards of Care in Diabetes -2014 In patients 70 years and older consider HbA1c target range of 7.0-7.5% Reference: Diabetes Mellitus in Older People: Position Statement on behalf of the International Association of Gerontology and Geriatrics (IAGG), the Diabetes Working Constitution Party for Older People (EDWPOP), and the International Task Force of Experts in Diabetes. Cecilio Hinds et al. J [employer]. 2012 Test results diagnostic of diabetes should be repeated for confirmation. The Sebia Capillary 2 assay for the measurement of HbA1c is a National Glycohemoglobin Standardization Program (NGSP)certified method. Blood BLOOD SPECIMEN / Unknown Lab Venipuncture / Unknown 10/05/2019 5:45 AM BOX PRINTING MACHINE OPERATOR 10/05/2019 6:04 AM BOX PRINTING MACHINE OPERATOR Paul Murphy MD LAB - CHEMISTRY ORDERABLES Final Result [facility] [address] [place] [address], [facility] [phone] from Last 3 Months or Most Recently Relevant to Health Maintenance Insurance MEDICARE [facility] MEDIC[facility] Advance Directives * Full Code (Latest Code Status on File) Date Activated Date Inactivated Comments 10/04/2019 8:30 PM 10/06/2019 7:50 PM Care Teams Zumba Instructor Relationship Specialty Start Date End Date Al Calvillo Jr., MD PCP - General Student Resident 03/04/20 Karin Blakely MD [address] [place] [address] PCP - Attributed-[facility] 10/25/24
--- OUTSIDE RECORDS SUMMARY | 2025-01-09 12:24 | XMS_ITS | Clinical Summary ---
Author Organization [facility] Address [address] [place] [id number] Care Team Providers Care Assistant Track And Field Coach Name Role Phone Diane Longo MD Primary Care Provider [phone] Allergies No known active allergies Medications Ozempic [...] on file Legal Sex Female 8:46 PM DIRECTOR OF EVENT MANAGEMENT Gender Identity Not on file Sexual Orientation [...] lb 3.2 oz) 07/23/2024 3:32 P M DIRECTOR OF EVENT MANAGEMENT Height 154.9 cm (5' 1 ) 05/21/2024 [...] 12/05/2018, 03/05/2014, 02/26/2013 Well Visit 65+ 02/22/2024 Hemoglobin A1C 10/04/2024 04/03/2024, 10/05/2019 eGFR 04/03/2025 04/03/2024 Fall Risk Assessment 04/09/2025 04/09/2024 Influenza Vaccine (Season Ended) 2025 Procedures Procedure Name Priority Date/Time Associated Diagnosis Comments EGFR Routine 04/03/2024 1:05 PM CDT Pre-op testing HEMOGLOBIN A1C Routine 04/03/2024 12:57 PM CDT Pre-op testing Type 2 diabetes mellitus without complication, unspecified whether mcfp insulin use (HCC) SCREENING MAMMOGRAM BILATERAL W [...] LAB BLOOD ORDERABLES Final Re sult [facility] [address] Department [place] [address] * (ABNORMAL) Hemoglobin A1c (04/03/2024 12:57 PM CDT) Hgb A1C 10.1(H) 4.0 - 5.6 % Estimated Average Glucose 243 mg/dL [facility] Comment: The ADA recommends reporting an estimated Average Glucose (eAG) with all Hemoglobin A1c results using the equation derived from a study of 507 normal and diabetic adults. Minority populations were underrepresented and children were not included. (Diabetes Care 31:4231-1176, 2008). The eAG is not equivalent to a fasting glucose. Blood 04/03/2024 12:5 7 PM CDT 04/03/2024 1:04 PM CDT us Mike Hinojosa MD LAB BLOOD ORDERABLES Final Re sult [facility] [address] [facility] Department [place] [address] * Screening Mammogram Bilateral W Kalpana (12/05/2018 12:30 PM CDT) Anatomical Region Laterality Modality Breast Bilateral Mammography Narrative 12/10/2018 2:11 PM CDT Mammogram Technique: Bilateral Digital Breast Tomosynthesis, Bilateral C-view 2D Screening mammogram. Views obtained: bilateral craniocaudal and bilateral mediolateral oblique. Computer Aided Detection was performed. Mammogram Findings: The present examination has been compared to prior imaging studies performed at [facility] on 02/26/2013 and 03/05/2014, and at [facility] on 02/22/2012. There are scattered [...] compared to prior imaging studies performed at [facility] on 02/26/2013 and 03/05/2014, and at [facility] on 02/22/2012. There are scattered areas of fibroglandular density. There is no suspicious abnormality in either breast. Impression: Annual screening mammography is recommended. OVERALL FINAL ASSESSMENT: BI-RADS CATEGORY 1: Negative. Mateusz Norman MD IMG MAMMO PROCEDURES Final Re sult from Last 3 Months or Most Recently Relevant to Health Maintenance Insurance [facility] MEDICARE ADVANTAGE [id number] [facility] [address] MEDICARE ADVANTAGE Care Teams Assistant Track And Field Coach Relationship Specialty Start Date End Date Diane Longo MD [address] [place] [address] PCP - General Emergency Medicine 01/17/24
--- OUTSIDE RECORDS SUMMARY | 2025-01-09 12:24 | XMS_ITS | Data Portability ---
Author Organization [facility] Marina Breen Address [address] [place] [address] Care Team Providers Care Cook Candy Name Role Phone STAR JAMES Primary Care Provider [phone] DIANE HAZEL Primary Care Provider Unavailabl e Assessment No assessment recorded. Plan of Treatment Reminders Order Date Submit Date Provider Last Modified By Organization Details Last Modified Time Details Appointments ANY 30 2024 03:45P M Diane Hazel MD Not available Not available Not available Lab CMP, serum or plasma 2024 025 [email or web address] [facility], [address], [place], [address], 01/06/2025 12:37:07 hemoglobi n (Hb), fingersti ck, blood 2024 025 [email or web address] In-Office Order, Internal Use Only DO Not Attach Compendium DO Not Attach Compendium, Do Not Delete/merge, [id number] 11/11/2024 16:14:19 lipid panel, serum 2024 025 [email or web address] [facility], [address], [place], [address], 12/23/2024 10:05:06 CMP, serum or plasma 2024 025 [email or web address] [facility], [address], [place], [address], 12/23/2024 10:05:06 CBC 2024 025 [email or web address] [facility], [address], [place], [address], 12/23/2024 10:05:07 albumin/c reatinine , mass ratio, urine 2024 025 [facility], [address], [place], [address], 12/23/2024 10:05:07 HbA1c (hemoglob in A1c), blood 2024 025 DEONDRE [facility], [address], [place], [address], 09/03/2024 19:10:12 lipid panel, serum 2023 024 [facility], [address], [place], [address], 11/20/2024 09:59:27 HbA1c (hemoglob in A1c), blood 2023 024 [email or web address] In-Office Order, Internal Use Only DO Not Attach Compendium DO Not Attach Compendium, Do Not Delete/merge, [id number] 02/11/2024 17:26:15 Referral physical therapist referral - wasting in leg muscles, please help with exercises , diabetic 2024 025 [facility], [address], [place], [address], 12/12/2024 08:56:49 gastroent erologist referral 2023 024 [facility], [address], [place], [address], 02/19/2024 10:50:54 Procedures None recorded. Surgeries None recorded. Imaging MAMMO, screening , digital, bilateral 2024 025 [facility] ([facility]), [address], [place], [address], 01/06/2025 13:49:29 XR, shoulder 2024 [facility] ([facility]), [address] [place], [address], 09/02/2024 13:35:50 Medication Orders Farxiga 10 mg tablet 2024 [facility] #[id number], [address], [place], [id number], 11/11/2024 16:14:25 Ozempic 2 mg/dose (8 mg/3 mL) subcutane ous pen injector 2024 [facility] #27733, [address], [place], [id number], 11/11/2024 16:14:26 atorvasta tin 40 mg tablet 2024 [facility] #97658, [address], [place], [id number], 11/11/2024 16:14:24 lisinopri l 40 mg tablet 2024 [facility] #41833, [address], [place], [id number], 11/11/2024 16:14:26 famotidin e 20 mg tablet 2024 [facility], [address], [place], [id number], 11/11/2024 16:14:27 meloxicam 15 mg tablet 2024 [facility], [address], [place], [id number], 11/11/2024 16:14:26 methocarb debora 500 mg tablet 2024 025 [facility] #78858, [address], [place], [id number], 11/11/2024 16:14:31 meloxicam 15 mg tablet 2024 025 [facility] #49424, [address], [place], [id number], 09/02/2024 12:17:26 methocarb debora 500 mg tablet 2024 025 [facility] #20461, [address], [place], [id number], 09/02/2024 12:17:28 lactulose 10 gram/15 mL oral solution 2023 025 [facility], [address], [place], [id number], 11/11/2024 16:09:37 Ozempic 0.25 mg or 0.5 mg (2 mg/3 mL) subcutane ous pen injector 2023 024 [email or web address] #70396, [address], [place], [id number], 09/08/2024 15:41:10 Patient TargetsNo targets recorded. Patient InstructionsNo instructions recorded. 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 6 above high normal Predi abete s: 5.7 - 6.4 Diabe roe: >6.4 Glyce connie contr ol for adult s with diabe roe: <7.0 Not Available [facility] ([facility]) [address], [place], [address], 09/03/2024 19:10:12 11/12/19 25 11/11/2024 hemog lobin (Hb), finge rstic k, blood HGB 9.6 Not Available In-Office Order Internal Use Only DO Not Attach Compendium DO Not Attach Compendium, Do Not Delete/merge, [id number] 11/11/2024 15:46:10 12/18/19 25 12/17/2024 HbA1c (hemo globi n A1c), blood HbA1c 8.5% Not Available In-Office Order Internal Use Only DO Not Attach Compendium DO Not Attach Compendium, Do Not Delete/merge, [id number] 12/17/2024 08:57:20 05/23/20 24 05/23/2024 XR, abdom en No observ ation record ed. [email or web address] [place], [address], 05/29/2024 10:37:46 05/23/20 24 05/23/2024 CT, abdom en + pelvi s, w/ contr ast No observ ation record ed. [address] [place], [address], 05/29/2024 10:38:00 09/02/19 25 09/02/2024 XR, shoul shirley No observ ation record ed. [facility] [address] [place], [address], 09/11/2024 17:54:30 11/25/19 25 XR, shoul shirley No observ ation record ed. [facility] ([facility]) [address] [place], [address], 11/25/2024 15:45:22 11/26/19 25 11/25/2024 MRI, shoul shirley, w/o contr ast No observ ation record ed. [facility] [address], [place], [address], 11/25/2024 18:14:29 Result Notes None recorded. Problems Name Problem SNOMED Code Status Onset Date Resolution Date Notes Provider Name and Address Organization Details Recorded Time Type 2 diabetes mellitus 01159347 Active 2021 Not Available [facility] 3 13:10:31 Essential hypertension 24849435 Active 2021 Not Available [facility] 3 13:10:31 Hyperlipidemi a 41631759 Active 2021 Not Available [facility] 3 13:10:31 Gastroesophag eal reflux disease without esophagitis 912211178 Active 2021 Not Available [facility] 3 13:10:31 Notes:Some problems listed i n Documents: #[id number], #[id number] could not be added to this patient's chart. Please review these documents and add these problems to the patient's chart manually as needed. Problem Notes None recorded. Procedures Surgical History Date Name Laterality Status Provider Name and Address Organization Details Recorded Time Caesarean Section completed Liliana Guzman [place] [facility] 07/19/2022 14:35:18 procedure on ear completed Emilie Almodovar MA [place] - [facility] 09/02/2024 11:01:25 Imaging Results Imaging Date Name Status LastModified by Organiz [facility] Details LastModified Time 05/23/2024 XR, abdomen completed [email or web address] [facility] [address] [place], [address], 05/29/2024 10:37:46 05/23/2024 CT, abdomen + pelvis, w/ contrast completed [email or web address] [facility] [address] [place], [address], 05/29/2024 10:38:00 09/02/2024 XR, shoulder completed DEONDRE [facility] [address] [place], [address], 09/11/2024 17:54:30 11/24/2024 [facility] [address] [place], [address], 11/25/2024 15:45:22 11/25/2024 MRI, shoulder, w/o contrast completed [facility] [address], [place], [address], 11/25/2024 18:14:29 Procedure Notes None recorded. Medical [...] completed Not Available Not Available Not Available oxycodone- acetaminop hen 5 mg-325 mg tablet TAKE 1 TABLET BY MOUTH EVERY 6 HOURS NEEDED FOR PAIN active Not Available Not Available No t Available ofloxacin 0.3 % ear drops INSTILL [...] 122 mm[Hg] 78 mm[Hg] Emilie Almodovar MA [facility] 4 16:22:56 Date Recorded Body height Body mass index (BMI) Body weight Heart rate Body temperature Systolic blood pressure Diastolic blood pressure Provider Name and Address Organization Details Last Updated DateTime 4 154.94 cm 28.8 kg/m2 58237.1 2 g 90 /min 97.2 [degF] 151 mm[Hg] 69 mm[Hg] Marisel Fontenot [facility] 4 12:29:44 Date Recorded Body height Body mass index (BMI) Body weight Oxygen saturation Oxygen saturation in Arterial blood by Pulse oximetry Heart rate Systolic blood pressure Diastolic blood pressure Provider Name and Address Organization Details Last Updated DateTime 5 154.94 cm 30.2 kg/m2 14080.7 8 g 98 % 98 % 88 /min 138 mm[Hg] 68 mm[Hg] Emilie Almodovar MA [facility] 5 11:03:05 Date Recorded Body height Body mass index (BMI) Body weight Oxygen saturation Oxygen saturation in Arterial blood by Pulse oximetry Heart rate Body temperature Systolic blood pressure Diastolic blood pressure Provider Name and Address Organization Details Last Updated DateTime 5 154.94 cm 30 kg/m2 60754.1 9 g 98 % 98 % 88 /min 97.8 [degF] 122 mm[Hg] 80 mm[Hg] Emilie Almodovar MA [facility] 5 15:05:35 Date Recorded Body height Body mass index (BMI) Body weight Oxygen saturation Oxygen saturation in Arterial blood by Pulse oximetry Heart rate Body temperature Systolic blood pressure Diastolic blood pressure Provider Name and Address Organization Details Last Updated DateTime 5 154.94 cm 29.5 kg/m2 42903.4 1 g 98 % 98 % 88 /min 98.1 [degF] 122 mm[Hg] 78 mm[Hg] Emilie Almodovar MA [facility] 5 17:09:49 Social History Question Answer Notes LastModified by [email or web address] ion Details LastModified Time Tobacco Smoking Status Never Smoker Liliana Guzman MA [facility], [place] - [facility] 07/19/2022 14:33:56 Do You Have An Advance Directive? No Information not available 07/19/2022 In The 14 Days Before Symptom Onset, Have You Had Close Contact With A Laboratory-confir med COVID-19 While That Case Was Ill? No Information not available 08/07/2022 In The 14 Days Before Symptom Onset, Have You Had Close Contact With A Person Who Is Under Investigation For COVID-19 While That Person Was Ill? No Information not available 08/07/2022 Have You Been To An Area Known To Be High Risk For COVID-19? No Information not available 08/07/2022 Do You Have A Medical Power Of Agile Test Lead? No [email or web address] Information not available 08/11/2022 What [...] You Passively Exposed To Smoke? Yes Information no t available 07/19/2022 Has Tobacco Cessation Counseling Been Provided? Yes Information not available 09/02/2024 On What Date Was Tobacco Cessation Counseling Provided? 12/16/2024 Information not available 12/16/2024 Sex: Unknown Functional Status Question Answer Note LastModified by Organizat ion Details LastModified Time Do you use any illicit or recreational drugs? Yes marijuana Information not available 07/19/2022 Do you or have you ever used any other forms of tobacco or nicotine? No Information not available 07/19/2022 What is your level of alcohol consumption? Occasional Information not available 07/19/2022 Are you currently employed? No Disabled Information not available 07/19/2022 Mental Status None recorded. Family History Relationship Description Onset Age of this Age Resolved Age Notes LastModified by Organization Details LastModified Time Father No current problems or disability [email or web address] Not available 14:33:25 Mother No current problems or disability [email or web address] Not available 14:33:25 Medical History Condition Response Anxiety Disorder N Diabetes Y Coronary Artery Disease N High Blood Pressure Y Atrial Fibrillation N Seizures/Epilepsy N Acid Reflux (GERD) Y Cancer N Kidney or Bladder Problems Y Stroke N Thyroid Problems N GI Problems Y Asthma N Blood Clots N COPD N Depression N Allergies N Anemia Y High Cholesterol Y Hepatitis N Heart Attack (TN) N Heart Failure N Gynecological History Statement/Question [...] SNOMED-CT Code Diagnosis ICD10 Code Diagnosis Note [id number] [facility] (Adult Med) [address] [place] [address] 07/19/2022 14:20:23 07/19/2022 16:13:06 Adult health examination 604159765 Z00.00 Pt is 62 yo F with history of DM, HTN, GERD, and HLD presents to establish care. Obesity 693649761 E66.9 BMI 31.6. Recommende d daily exercise with a goal of 150 min/week of moderate-s trenuous activity and a balanced diet with an emphasis on fruits, vegetables , whole grains, legumes, lean protein, and mono/polyu nsaturated fats. Essential hypertension 87900758 I10 BP in clinic is 176/88. Pt states she is in pain and has been out of medication . Advised pt to take BP at home daily and keep log. Will discuss possible med changes at next visit. Discussed DASH diet. Advised goal for BP is <130/80. ER precaution s discussed. RTC in 2 weeks. History of urinary tract infection 4555929664 107 Z87.440 Pt reports recent kidney infection treated with antibiotic s. On PE, she has CVA tenderness and flank pain. UA with blood and small leuks. Will send for culture and treat pending results. Type 2 maribel betes mellitus 02798365 E11.9 Last A1C: unknown. A1c today in [...] supplies ordered. Return in 1 month. Hyperlipidemia 48181085 E78.5 Pt reports history of high cholestero l. Not currently on statin or lipid lowering therapy. Statin is indicated for DM, will start atorvastat in and check lipid panel. Gastroesop hageal reflux disease without esophagitis 299980170 K21.9 Currently only taking famotidine without relief. Will start omeprazole . Referral placed to GI. Diet modificati ons discussed. Screening for malignant neoplasm of colon 879818422 Z12.11 Due for screening Screening for malignant neoplasm of breast 321765836 Z12.31 Due for screening Otitis media 78734983 H6 6.92 Pt has left sided ear pain and drainage x 2 months. Failed two courses of abx. On PE, severe OM noted with postauricu lar tenderness . Concern for mastoiditi s, will obtain CT and refer to ENT. Will treat with cefdinir. ER precaution s discussed. [id number] Clayton Hill MD [facility] [address] [place] [address] 08/07/2022 11:29:29 08/08/2022 09:13:54 Chronic serous otitis media of left ear 908473268 H65.22 keep ear dry follow-up 2 weeks [id number] Lyudmila Irizarry DO [facility] [address] [place] [address] 08/11/2022 09:22:45 08/17/2022 10:27:33 Screening for malignant neoplasm of colon 183544746 Z12.11 last colonoscop y > 5-10 years agoCBC and CMP in chart 07/19/2022 Hematochezia 378839886 K 92.1 await colonoscop y results; likely from hemorrhoid s due to constipati on Epigastric pain 94309422 R10.13 marked tenderness epigastric and LUQ with guarding on exam. Plan to eval with EGD Gastroesop hageal reflux disease without esophagitis 853777615 K21.9 Mild improvemen t with famotidine QHS; remain on famotidine and await EGD results before tailoring treatment Nonulcer dyspepsia 06162 07 K30 [id number] [facility] [address] [place] [address] 08/24/2022 14:06:47 08/25/2022 10:01:44 Chronic otitis media 50327081 H66.92 [id number] Clayton [facility] [address] [place] [address] 10/09/2022 11:54:09 10/13/2022 08:37:43 Chronic serous otitis media of left ear 972887256 H65.22 keep ear dry follow-up 2 weeks [id number] Lyudmila Irizarry DO [facility] [address] [place] [address] 10/13/2022 09:47:13 10/16/2022 14:37:47 Internal hemorrhoids 68137223 K64.8 patient to increase fiber. Does not want powder supplement ation. States she plans to purchase OTC fiber gummies. Abdominal pain 03861426 R10.9 Epigastric pain 25963085 R10.13 Diffuse tenderness all 4 quadrants. She has marked tenderness epigastric and RUQ with guarding on exam; recommend abdominal US for further eval.EGD 08/09/2023 duodenal and gastric mucosa WNL.Famoti dine 40 mg QHS helps some. Will try splitting dose to 20 mg BID. [id number] Diane Hazel MD [facility] (Adult Med) [address] [place] [address] 10/30/2023 14:31:40 11/06/2023 15:07:36 Acute left otitis media 056269832 H66.92 Treat with Augmentin. Reassess at follow up. Still may need to see ENT for further evaluation . Type 2 maribel betes mellitus 92005468 E11.9 Due for routine blood work and [...] her diagnoses of diabetes. Chronic constipation 236 332013 K59.09 Tolu [id number]|2025-01-09 14:46:00|2025-01-09 14:46:00|ED.[email or web address]||||"HPI - Dizziness General Chief Complaint: Dizziness Stated Complaint: Dizziness since yesterday Time Seen by Provider: 01/09/25 14:39 History of Present Illness HPI Narrative: Pt says she awoke at 0500 yesterday and was very dizzy and unsteady. Pt says she leaned to left when trying to walk. Pt denies RAUSCH or one sided weakness. Pt says the dizziness has been constant and she has not been able to find a position to make it better. Related Data Home Medications Medication Instructions Recorded Confirmed Last Taken Type atorvastatin 40 mg tablet 40 mg PO DAILY 12/08/24 01/05/25 Unknown History dapagliflozin propanediol 10 mg 10 mg PO DAILY 12/08/24 01/05/25 Unknown History tablet famotidine 20 mg tablet 20 mg PO DAILY 12/08/24 01/05/25 Unknown History lisinopril 40 mg tablet 40 mg PO DAILY 12/08/24 01/05/25 Unknown History semaglutide 1 mg/dose (4 mg/3 mL) 1 mg subcut WEEKLY 12/08/24 01/05/25 Unknown History subcutaneous pen injector (Ozempic) Allergies Allergy/AdvReac Type Severity Reaction Status Date / Time No Known Allergies Allergy Verified 01/09/25 12:19 Review of Systems Review of Systems: All systems reviewed & are unremarkable except as noted in HPI and below PMFSH Past Medical History Medical History ) Diabetes type 2, controlled GERD (gastroesophageal reflux disease) Hyperlipidemia Hypertension Family History Family History ) Unknown Diabetes mellitus Hypertension Social History Social History ) Smoking status: Never smoker Substance use type: does not use Living arrangements: with family Gender identity (if verbalized by the patient): Female Spiritual care concerns: No Exam Const: General: healthy appearing and no acute distress Nutritional Appearance: well nourished Orientation/consciousness: patient oriented x3 Limitations: no limitations HENMT: Head: normal to inspection Eyes: Conjunctivae: conjunctivae normal Pupils: Equal, round and reactive pupils present EOM: EOMs intact bilaterally Neck: Neck: normal visual inspection Resp: Effort & Inspection: normal respiratory effort Auscultation: clear to auscultation bilaterally Cardio: Rate: regular rate Rhythm: regular rhythm Back/Spine/Pelvis: Back: no CVA tenderness Skin: General skin exam: normal color Rashes: no rashes Wounds: no wounds Neuro: General: patient oriented x3, moves all extremities, no meningeal signs, no focal motor deficits and CN's II-XI intact bilaterally Cranial nerves: Yes Nystagmus not present Speech: normal speech Extrem: General: normal to inspection and no clubbing, cyanosis or edema Psych: Mental Status: mental status grossly normal Affect: normal affect Attitude: cooperative Course Vital Signs Vital signs: Vital Signs Temperature 98 F 01/09/25 12:24 Pulse Rate 94 01/09/25 12:24 Respiratory Rate 16 01/09/25 12:24 Blood Pressure 139/68 01/09/25 12:24 Pulse Oximetry 100 01/09/25 12:24 Temperature 97.8 F 01/09/25 16:30 Pulse Rate 89 01/09/25 16:30 Respiratory Rate 16 01/09/25 16:30 Blood Pressure 133/77 01/09/25 16:30 Pulse Oximetry 98 01/09/25 16:30 MDM - Dizziness MDM Narrative Medical decision making narrative: Pt presents with dizziness for over 24 hrs constantly that does not change with position. Concerned for posterior stroke so will get cta head and neck and check labs since diabetic to rule out dka. will try dose of antivert even though this does not act like classic vertigo. Pt feels much better after antivert. CTA unremarkable and labs look good. home on antivert. Lab Data 01/09/25 15:05 01/09/25 15:05 Labs: Lab Results 01/09/25 01/09/25 Range/Units 15:05 15:30 WBC 8.4 (4.5-10.0) K/mm3 RBC 4.66 (4.2-5.4) M/mm3 Hgb 13.0 (12.0-15.0) g/dL Hct 40.2 (37.0-47.0) % MCV 86.3 (80-100) fl MCH 27.9 (26-34) pg MCHC 32.3 (32-36) g/dl RDW 12.6 (11.5-14.5) % Plt Count 409 H (150-375) k/mm3 MPV 9.4 (7.4-10.4) fl Immature Gran % (Auto) 0.2 (0-0.5) % Neut % (Auto) 63.5 (45.5-73.1) % Lymph % (Auto) 28.4 (18.3-44.2) % Nicollet % (Auto) 5.6 (2.6-8.5) % Eos % (Auto) 1.3 (0-4.4) % Baso % (Auto) 1.0 (0.2-1.2) % Lymph # (Auto) 2.38 (0.9-3.2) K/mm3 Nicol[place] # (Auto) 0.5 (0.1-0.6) K/mm3 Eos # (Auto) 0.1 (0-0.3) K/mm3 Baso # (Auto) 0.1 (0.0-0.1) K/mm3 Abs Immat Gran (auto) 0.02 (0.00-0.031) K/mm3 Absolute Neuts (auto) 5.3 (1.3-6.7) K/mm3 Absolute Nucleated RBC 0.000 (0.0-0.012) K/mm3 Nucleated RBC % 0.0 (0.0-0.2) % PT 14.7 (11.1-14.7) Seconds INR 1.1 APTT 31.0 (22.3-36.8) Seconds Sodium 139 (137-145) mmol/L Potassium 4.4 (3.4-5.0) mmol/L Chloride 101 (98-107) mmol/L Carbon Dioxide 26 (22-30) mmol/L Anion Gap 12 (4-12) mmol/L BUN 18 H (7-17) mg/dL Creatinine 0.69 L (0.7-1.0) mg/dL Estim Creat Clear Calc 64 ml/min Estimated GFR > 60 (59 - ) Glucose 137 H (65-110) mg/dL Calcium 9.6 (8.4-10.2) mg/dL Total Bilirubin 0.5 (0.2-1.3) mg/dL AST 25 (14-36) U/L ALT 23 (6-35) U/L Alkaline Phosphatase 145 H (38-126) U/L Total Protein 8.0 (6.3-8.2) g/dL Albumin 4.2 (3.5-5.1) g/dL Urine Color Yellow (Yellow) Urine Appearance Clear (Clear) Urine pH 5.0 (5.0-9.0) Ur Specific [place] 1.037 H (1.001-1.035) Urine Protein Negative (Negative) mg/dL Urine Glucose (UA) 3+ H (Negative) mg/dL Urine Ketones 1+ H (Negative) mg/dL Ur Blood (Man) Negative (Negative) Urine Nitrate Negative (Negative) Urine Bilirubin Negative (Negative) Urine Urobilinogen 0.2 (<2.0) mg/dL Leukocyte Esterase Rfl Negative (Negative) JUDE/UL Discharge Plan Discharge Clinical Impression: Dizziness Patient Disposition: Home Condition: Improved Instructions: Antibiotic Form, Vertigo (ED), Dizziness (ED) Patient Language: Armenian Prescriptions: New meclizine 25 mg tablet 25 mg PO TID PRN (Reason: dizziness) Qty: 30 0RF No Action famotidine 20 mg tablet 20 mg PO DAILY atorvastatin 40 mg tablet 40 mg PO DAILY lisinopril 40 mg tablet 40 mg PO DAILY Ozempic 1 mg/dose (4 mg/3 mL) pen injector 1 mg SUBCUT WEEKLY Patient Comments: TAKES ON MONDAYS dapagliflozin propanediol 10 mg tablet 10 mg PO DAILY oxycodone-acetaminophen [Percocet] 5-325 mg tablet 1 tablet PO Q6H PRN (Reason: pain) Qty: 40 0RF clindamycin-benzoyl peroxide 1-5 % gel 1 applic topical DAILY Qty: 25 0RF Rx Instructions: Apply to surgical shoulder daily after showering for 2 weeks chlorhexidine gluconate [Hibiclens] 4 % liquid 1 applic topical ONCE Qty: 237 0RF Rx Instructions: Cleanse operative extremity, in shower, every day for 1 week prior to surgical procedure. Follow-up/Referrals: Donta,Diane Ruelas MD [Primary Care Provider] - "
--- OUTSIDE RECORDS SUMMARY | 2025-01-09 12:24 | XMS_ITS | CONTINUITY OF CARE DOCUMENT ---
Author Name viki drew Address Unknown Organization [facility] Address [address] [place] [address] Phone [phone] Care Team Providers Care Patrol Police Sergeant Name Role Phone Jasvir Cannon MD Unavailable [phone] INSURANCE PROVIDERS Payer name Policy type / Coverage type [employer] ID [id number] PAY [id number]
--- NOTE | 2025-01-09 13:56 | ED_ITS ---
HPI - General Adult General Chief complaint: Dizziness Stated complaint: Dizziness since yesterday Time Seen by Provider: 01/09/25 14:39 Focused HPI: Re Aburto is a 64 y/o female who presents with complaints of feeling dizzy / room spinning /light headed since yesterday. Symptoms improve when she lays down. She denies RAUSCH/numbness /tingling/ chest pain/ SOB/ vision changes/ alert and oriented X 4 GENERAL: Well-appearing, well-nourished, and in no acute distress. HEAD: Normocephalic, atraumatic. CHEST: Clear to auscultation. No respiratory distress. HEART: Regular rate and rhythm. NEURO: Alert and oriented x3. Patient screened in triage and initial orders placed. Additional care and disposition to be based upon diagnostic testing and treatment. Related Data Home Medications Medication Instructions Recorded Confirmed Last Taken Type atorvastatin 40 mg tablet 40 mg PO DAILY 12/08/24 01/05/25 Unknown History dapagliflozin propanediol 10 mg 10 mg PO DAILY 12/08/24 01/05/25 Unknown History tablet famotidine 20 mg tablet 20 mg PO DAILY 12/08/24 01/05/25 Unknown History lisinopril 40 mg tablet 40 mg PO DAILY 12/08/24 01/05/25 Unknown History semaglutide 1 mg/dose (4 mg/3 mL) 1 mg subcut WEEKLY 12/08/24 01/05/25 Unknown History subcutaneous pen injector (Ozempic) Allergies Allergy/AdvReac Type Severity Reaction Status Date / Time No Known Allergies Allergy Verified 01/09/25 12:19 [facility] Past Medical History Medical History ) Diabetes type 2, controlled GERD (gastroesophageal reflux disease) Hyperlipidemia Hypertension Family History Family History ) Unknown Diabetes mellitus Hypertension Social History Social History ) Smoking status: Never smoker Substance use type: does not use Living arrangements: with family Gender identity (if verbalized by the patient): Female Spiritual care concerns: No Course Vital Signs Vital signs: Vital Signs Temperature 36.6 C 01/09/25 12:24 Pulse Rate 94 01/09/25 12:24 Respiratory Rate 16 01/09/25 12:24 Blood Pressure 139/68 01/09/25 12:24 Pulse Oximetry 100 01/09/25 12:24 Temperature 36.6 C 01/09/25 18:26 Pulse Rate 94 01/09/25 18:26 Respiratory Rate 16 01/09/25 18:26 Blood Pressure 134/74 01/09/25 18:26 Pulse Oximetry 98 01/09/25 18:26 Medical Decision Making Vital Signs Vital Signs: Vital Signs Temperature 36.6 C 01/09/25 12:24 Pulse Rate 94 01/09/25 12:24 Respiratory Rate 16 01/09/25 12:24 Blood Pressure 139/68 01/09/25 12:24 Pulse Oximetry 100 01/09/25 12:24 Temperature 36.6 C 01/09/25 18:26 Pulse Rate 94 01/09/25 18:26 Respiratory Rate 16 01/09/25 18:26 Blood Pressure 134/74 01/09/25 18:26 Pulse Oximetry 98 01/09/25 18:26 Lab Data 01/09/25 15:05 01/09/25 15:05 Labs: Lab Results 01/09/25 01/09/25 Range/Units 15:05 15:30 WBC 8.4 (4.5-10.0) K/mm3 RBC 4.66 (4.2-5.4) M/mm3 Hgb 13.0 (12.0-15.0) g/dL Hct 40.2 (37.0-47.0) % MCV 86.3 (80-100) fl MCH 27.9 (26-34) pg MCHC 32.3 (32-36) g/dl RDW 12.6 (11.5-14.5) % Plt Count 409 H (150-375) k/mm3 MPV 9.4 (7.4-10.4) fl Immature Gran % (Auto) 0.2 (0-0.5) % Neut % (Auto) 63.5 (45.5-73.1) % Lymph % (Auto) 28.4 (18.3-44.2) % [place] % (Auto) 5.6 (2.6-8.5) % Eos % (Auto) 1.3 (0-4.4) % Baso % (Auto) 1.0 (0.2-1.2) % Lymph # (Auto) 2.38 (0.9-3.2) K/mm3 [place] # (Auto) 0.5 (0.1-0.6) K/mm3 Eos # (Auto) 0.1 (0-0.3) K/mm3 Baso # (Auto) 0.1 (0.0-0.1) K/mm3 Abs Immat Gran (auto) 0.02 (0.00-0.031) K/mm3 Absolute Neuts (auto) 5.3 (1.3-6.7) K/mm3 Absolute Nucleated RBC 0.000 (0.0-0.012) K/mm3 Nucleated RBC % 0.0 (0.0-0.2) % PT 14.7 (11.1-14.7) Seconds INR 1.1 APTT 31.0 (22.3-36.8) Seconds Sodium 139 (137-145) mmol/L Potassium 4.4 (3.4-5.0) mmol/L Chloride 101 (98-107) mmol/L Carbon Dioxide 26 (22-30) mmol/L Anion Gap 12 (4-12) mmol/L BUN 18 H (7-17) mg/dL Creatinine 0.69 L (0.7-1.0) mg/dL Estim Creat Clear Calc 64 ml/min Estimated GFR > 60 (59 - ) Glucose 137 H (65-110) mg/dL Calcium 9.6 (8.4-10.2) mg/dL Total Bilirubin 0.5 (0.2-1.3) mg/dL AST 25 (14-36) U/L ALT 23 (6-35) U/L Alkaline Phosphatase 145 H (38-126) U/L Total Protein 8.0 (6.3-8.2) g/dL Albumin 4.2 (3.5-5.1) g/dL Urine Color Yellow (Yellow) Urine Appearance Clear (Clear) Urine pH 5.0 (5.0-9.0) Ur Specific [place] 1.037 H (1.001-1.035) Urine Protein Negative (Negative) mg/dL Urine Glucose (UA) 3+ H (Negative) mg/dL Urine Ketones 1+ H (Negative) mg/dL Ur Blood (Man) Negative (Negative) Urine Nitrate Negative (Negative) Urine Bilirubin Negative (Negative) Urine Urobilinogen 0.2 (<2.0) mg/dL Leukocyte Esterase Rfl Negative (Negative) JUDE/UL Discharge Plan Discharge Clinical Impression: Dizziness Patient Disposition: Home Condition: Improved Instructions: Antibiotic Form, Vertigo (ED), Dizziness (ED) Patient Language: Senegalese Prescriptions: New meclizine 25 mg tablet 25 mg PO TID PRN (Reason: dizziness) Qty: 30 0RF No Action famotidine 20 mg tablet 20 mg PO DAILY atorvastatin 40 mg tablet 40 mg PO DAILY lisinopril 40 mg tablet 40 mg PO DAILY Ozempic 1 mg/dose (4 mg/3 mL) pen injector 1 mg SUBCUT WEEKLY Patient Comments: TAKES ON MONDAYS dapagliflozin propanediol 10 mg tablet 10 mg PO DAILY oxycodone-acetaminophen [Percocet] 5-325 mg tablet 1 tablet PO Q6H PRN (Reason: pain) Qty: 40 0RF clindamycin-benzoyl peroxide 1-5 % gel 1 applic topical DAILY Qty: 25 0RF Rx Instructions: Apply to surgical shoulder daily after showering for 2 weeks chlorhexidine gluconate [Hibiclens] 4 % liquid 1 applic topical ONCE Qty: 237 0RF Rx Instructions: Cleanse operative extremity, in shower, every day for 1 week prior to surgical procedure. Follow-up/Referrals: Donta,Diane Ruelas MD [Primary Care Provider] -
--- NOTE | 2025-01-09 13:59 | ECG_ITS ---
Test Date: 2025-01-09 14:31:41 Measurements Intervals [place] Rate: 89 P: 51 FL: 169 QRS: 38 QRSD: 70 T: 61 QT: 344 QTc: 419 Interpretive Statements SINUS RHYTHM LOW QRS VOLTAGE IN PRECORDIAL LEADS [QRS DEFLECTION < 1.0 mV IN CHEST LEADS] ABNORMAL ECG Compared to ECG 12/11/2024 10:32:17 No significant changes Electronically Signed On 01-10-2025 07:59:46 CDT by Davis Iverson M.D.
--- OUTSIDE RECORDS SUMMARY | 2025-01-09 14:02 | XMS_ITS | Clinical Summary ---
Author Organization [facility] [employer] [facility] Address [address] [place] [address] Care Team Providers Care Plaster Model And Mold Maker Name Role Phone Rajinder Alexander MD, Al Banco Primary Care Prov ider Karin Blakely MD Unavailable [phone] Source Comments [facility],non-owned Affiliates and Associated Physician Practices is amultiple site organization consisting of ambulatory clinics and hospital sitesin [place], [place], [place] and [place]. This disclosure is being madepursuant to the Care Everywhere program and may not contain all information available regarding this patient. Last updated 18.[facility] Allergies No known active allergies Medications * [...] on file Legal Sex Female 6:23 PM CARRY OUT CLERK Gender Identity Not on file Sexual Orientation [...] ENDOSCOPY, COLON, SCREENING Routine 10/06/2019 1:30 PM CARRY OUT CLERK HEMOGLOBIN A1C Routine 10/05/2019 5:45 AM CARRY OUT CLERK Uncontrolled type 2 diabetes mellitus with hyperglycemia from Last 3 Months or Most Recently Relevant to Health Maintenance Results * (ABNORMAL) COMPREHENSIVE METABOLIC PANEL (03/04/2020 1:15 PM CDT) BUN 11 7 - 26 mg/dL 03/04/2020 1:54 PM [facility] Creatinine 0.7 0.6 - 1.2 mg/dL 03/04/2020 1:54 PM [facility] Sodium 138 136 - 145 mmol/L 03/04/2020 1:54 PM [facility] Potassium 4.0 3.5 - 4.5 mmol/L 03/04/2020 1:54 PM [facility] Chloride 103 98 - 107 mmol/L 03/04/2020 1:54 PM [facility] CO2 24 22 - 29 mmol/L 03/04/2020 1:54 PM [facility] Glucose 233(H) 70 - 115 mg/dL 03/04/2020 1:54 PM [facility] Calcium 9.2 8.4 - 10.2 mg/dL 03/04/2020 1:54 PM [facility] Protein Total 7.0 6.0 - 8.3 g/dL 03/04/2020 1:54 PM [facility] Albumin 3.4 3.4 - 5.0 g/dL 03/04/2020 1:54 PM [facility] Bilirubin Total 0.2 0.2 - 1.2 mg/dL 03/04/2020 1:54 PM [facility] Alkaline Phosphatase 109 40 - 150 Units/L 03/04/2020 1:54 PM [facility] ALT 27 0 - 55 Units/L 03/04/2020 1:54 PM [facility] AST 19 5 - 34 Units/L 03/04/2020 1:54 PM [facility] Anion Gap 15 8 - 18 03/04/2020 1:54 PM [facility] BUN/Creatinine Ratio 16 7 - 23 03/04/2020 1:54 PM [facility] Osmolality Calculated 293 270 - 300 mOsm/kg 03/04/2020 1:54 PM [facility] Albumin/Globulin Ratio 0.9(L) 1.1 - 2.3 03/04/2020 1:54 PM [facility] eGFR >60 >60 mL/min/1.7 3 m2 03/04/2020 1:54 PM [facility] Blood BLOOD SPECIMEN / Unknown Venipuncture / Unknown 03/04/2020 1:15 PM CDT 03/04/2020 1:23 PM CDT us Jessa Wu MD LAB - CHEMISTRY ORDERABLES Fin al Result [address] [address], [facility] [phone] * ENDOSCOPY, COLON, SCREENING (10/06/2019 1:30 PM CARRY OUT CLERK) Report Endoscopy POC Endoscopy Department Report _ [...] the patient. Procedure Code(s): --- Professional --- 14050, Colonoscopy, flexible; with removal of tumor(s), polyp(s), or other lesion(s) by snare technique Diagnosis Code(s): --- Professional --- Z12.11, Encounter for screening for malignant neoplasm of colon Z86.010, Personal history of colonic polyps D12.2, Benign neoplasm of ascending colon K64.9, Unspecified hemorrhoids K64.4, Residual hemorrhoidal skin tags K57.30, Diverticulosis of large intestine without perforation or abscess without bleeding CPT copyright 2016 [place] [employer] Association. All rights reserved. The codes documented in this report are preliminary and upon certified medical records coder review may be revised to meet current compliance requirements. Lg Rodriguez MD 10/06/2019 2:51:18 PM This report has been signed electronically. Note Initiated On: 10/06/2019 1:30 PM Number of Addenda: 0 [facility] [address] [place] [address] [facility] 10/06/2019 1:30 PM CARRY OUT CLERK Lg Rodriguez MD GI PROCEDURE ORDERABLES Edited Result - Final [facility] * (ABNORMAL) HEMOGLOBIN A1C (10/05/2019 5:45 AM CARRY OUT CLERK) Hemoglobin A1c 9.0(H) 4.4 - 6.3 % 10/06/2019 9:37 AM CARRY OUT CLERK [facility] Estimated Average Glucose 212 mg/dL 10/06/2019 9:37 AM [facility] Comment: HbA1c Interpretation: Treatment target values recommended by ADA and other clinical organizations should be used to evaluate metabolic control in patients. Treatment Target Values: Normal : < 5.7% Pre-diabetes: 5.7-6.4% Diabetes: Equal to or greater than 6.5% Reference: [place] Diabetes Association Standards of Care in Diabetes -2014 In patients 70 years and older consider HbA1c target range of 7.0-7.5% Reference: Diabetes Mellitus in Older People: Position Statement on behalf of the International Association of Gerontology and Geriatrics (IAGG), the Diabetes Working Constitution Party for Older People (EDWPOP), and the International Task Force of Experts in Diabetes. Cecilio Hinds et al. J [place] Medical Directors Association. 2012 Test results diagnostic of diabetes should be repeated for confirmation. The Sebia Capillary 2 assay for the measurement of HbA1c is a National Glycohemoglobin Standardization Program (NGSP)certified method. Blood BLOOD SPECIMEN / Unknown Lab Venipuncture / Unknown 10/05/2019 5:45 AM CARRY OUT CLERK 10/05/2019 6:04 AM CARRY OUT CLERK Paul Murphy MD LAB - CHEMISTRY ORDERABLES Final Result [facility] [address] [place] [address], [facility] [phone] from Last 3 Months or Most Recently Relevant to Health Maintenance Insurance MEDICARE [facility] MEDIC[facility] Advance Directives * Full Code (Latest Code Status on File) Date Activated Date Inactivated Comments 10/04/2019 8:30 PM 10/06/2019 7:50 PM Care Teams Plaster Model And Mold Maker Relationship Specialty Start Date End Date Al Calvillo Jr., MD PCP - General Student Resident 03/04/20 Karin Blakely MD [address] [place] [address] PCP - Attributed-[facility] 10/25/24
--- OUTSIDE RECORDS SUMMARY | 2025-01-09 14:02 | XMS_ITS | Clinical Summary ---
Author Organization [facility] Address [facility] [place] [address] Care Team Providers Care Process Developer Name Role Phone Unavailable Primary Care Provider Unavailabl e Social History Tobacco Use Types Packs/Day Years Used Date Smoking Tobacco: Never Assessed Comments Unknown Sex and Gender Information Value Date Recorded Sex Assigned at Not on file Legal Sex Female 1:34 PM SULFURIC ACID PLANT SUPERVISOR Gender Identity Not on file Sexual Orientation [...]
--- OUTSIDE RECORDS SUMMARY | 2025-01-09 14:02 | XMS_ITS | Clinical Summary ---
Author Organization [facility] Address [address] [id number] Phone Care Team Providers Care Waste Management Recycling Technician Name Role Phone Unavailable Primary Care Provider [...] lisinopril 40mg Type 2 diabetes mellitus (HCC ([facility]) 07/11/20 Overview (07/11/2022): A1c 8.6 on 02/17/2022. [...] CDT Respiratory Rate 24 10/04/2019 10:43 AM DEVELOPER ARCHITECT Oxygen Saturation - - Inhaled Oxygen Concentration [...] RANDOM URINE (W/CREATININE) Routine 07/25/2021 2:13 PM DEVELOPER ARCHITECT HIV 1/2 ANTIGEN/ANTIBODY, FOURTH GENERATION W/RFL Routine 04/08/2020 2:56 PM CDT HPV RNA, HR E6/E7, TMA Routine 2019 8:07 AM CDT THINPREP TIS PAP Routine 2019 8:07 AM CDT LEGACY COLONSCOPY Routine 08/12/2012 11: 00 PM DEVELOPER ARCHITECT from Last 3 Months or Most Recently Relevant to Health Maintenance Results * (ABNORMAL) HBG A1C/GLYCOSOLATED HGB (02/17/2022 10:13 AM CDT) HEMOGLOBIN A1C 8.6(A) <6 [facility] 02/17/2022 10:1 3 AM CDT 02/17/2022 10:13 AM CDT Kiran Murray DO LAB BLOOD ORDERABLES Final Resul t Performing Organization Address [facility] de Phone Number [facility] * MICROALBUMIN, RANDOM URINE (W/CREATININE) (07/25/2021 2:13 PM DEVELOPER ARCHITECT) CREATININE UR 51 20 - 275 mg/dL [...] erence Range Not established 07/25/2021 2:13 PM DEVELOPER ARCHITECT 07/25/2021 2:13 PM DEVELOPER ARCHITECT Kiran Murray DO LAB URINE ORDERABLES Final Resul t Performing Organization Address [facility] de Phone Number [facility] * HIV [...] purpose. For additional information please refer to http://education.[employer].State/faq/XCB714 (This link is being provided for informational/ educational purposes only.) The performance of this assay has not been clinically validated in patients less than 2 years old. 04/08/2020 2:56 PM CDT 04/08/2020 2:56 PM CDT Al Calvillo Jr. LAB BLOOD ORDERABLES F inal Result Performing Organization Address [facility] de Phone Number [facility] * HPV RNA, HR E6/E7, TMA (2019 8:07 AM CDT) HPV RNA, HR E6/E7, TMA Not Detected Not Detected [facility] Comment:This test was perfor med using the APTIMA HPV Assay ([employer] This assay detects E6/E7 viral messenger RNA (mRNA) from 14 high-risk HPV types (16,18,31,33,35,39,45,51,52,56,58,59,66,68). The analytical performance characteristics of this assay have been determined by [employer]. The modifications have not been cleared or approved by the FDA. This assay has been validated pursuant to the CLIA regulations and is used for clinical purposes. 2019 8:07 AM CDT 2019 8:07 AM CDT Al Calvillo Jr. LAB MICROBIOLOGY - GEN ERAL ORDERABLES Final Result Performing Organization Address [facility] de Phone Number [facility] * THINPREP [...] along with historic and current clinical information. MODELING AGENCY MANAGER [facility] Comment:MVB, CT(ASCP) CT scr eening location: [facility] [address] [place] [address] PREV. PAP NONE GIVEN [facility] STATEMENT OF [...] [facility] * Legacy Colonoscopy (08/12/2012 11:00 PM DEVELOPER ARCHITECT) Anatomical Region Laterality Modality Endoscopy 08/12/2012 11:0 0 PM DEVELOPER ARCHITECT 08/12/2012 11:00 PM DEVELOPER ARCHITECT Narrative 08/12/2012 11:00 PM DEVELOPER ARCHITECT Access OnBase Patient Window in the Media [...]
--- OUTSIDE RECORDS SUMMARY | 2025-01-09 14:02 | XMS_ITS | Clinical Summary ---
Author Organization [facility] Address [address] [place] [id number] Care Team Providers Care Bonderite Operator Name Role Phone Diane Longo MD Primary Care Provider [phone] Allergies No known active allergies Medications Ozempic [...] on file Legal Sex Female 8:46 PM APPLIQUE CUTTER Gender Identity Not on file Sexual Orientation [...] lb 3.2 oz) 07/23/2024 3:32 P M APPLIQUE CUTTER Height 154.9 cm (5' 1 ) 05/21/2024 [...] 2 diabetes mellitus without complication, unspecified whether senior care insulin use (HCC) SCREENING MAMMOGRAM BILATERAL W [...] LAB BLOOD ORDERABLES Final Re sult [facility] [address] Department [place] [address] * (ABNORMAL) Hemoglobin A1c (04/03/2024 12:57 PM CDT) Hgb A1C 10.1(H) 4.0 - 5.6 % Estimated Average Glucose 243 mg/dL [facility] Comment: The ADA recommends reporting an estimated Average Glucose (eAG) with all Hemoglobin A1c results using the equation derived from a study of 507 normal and diabetic adults. Minority populations were underrepresented and children were not included. (Diabetes Care 31:6774-9847, 2008). The eAG is not equivalent to a fasting glucose. Blood 04/03/2024 12:5 7 PM CDT 04/03/2024 1:04 PM CDT us Mike Hinojosa MD LAB BLOOD ORDERABLES Final Re sult [facility] [address] [facility] Department [place] [address] * Screening Mammogram Bilateral W Kalpana (12/05/2018 12:30 PM CDT) Anatomical Region Laterality Modality Breast Bilateral Mammography Narrative 12/10/2018 2:11 PM CDT Mammogram Technique: Bilateral Digital Breast Tomosynthesis, Bilateral C-view 2D Screening mammogram. Views obtained: bilateral craniocaudal and bilateral mediolateral oblique. Computer Aided Detection was performed. Mammogram Findings: The present examination has been compared to prior imaging studies performed at [facility] on 02/26/2013 and 03/05/2014, and at [facility] on 02/22/2012. There are scattered [...] to prior imaging studies performed at [facility] on 02/26/2013 and 03/05/2014, and at [facility] on 02/22/2012. There are scattered areas of fibroglandular density. There is no suspicious abnormality in either breast. Impression: Annual screening mammography is recommended. OVERALL FINAL ASSESSMENT: BI-RADS CATEGORY 1: Negative. Mateusz Norman MD IMG MAMMO PROCEDURES Final Re sult from Last 3 Months or Most Recently Relevant to Health Maintenance Insurance [facility] MEDICARE ADVANTAGE [address] [id number] [facility] [place] [address] MEDICARE ADVANTAGE [facility] MEDICARE Address: [facility] [address] [place] [address] Care Teams Bonderite Operator Relationship Specialty Start Date End Date Diane Longo MD [address] [place] [address] PCP - General Emergency Medicine 01/17/24
--- OUTSIDE RECORDS SUMMARY | 2025-01-09 14:02 | XMS_ITS | CONTINUITY OF CARE DOCUMENT ---
Author Name viki drew Address Unknown Organization [facility] Address [address] [place] [address] Phone [phone] Care Team Providers Care Sheet Metal Worker Maintenance Name Role Phone Jasvir Cannon MD Unavailable [phone] [employer]ANCE PROVID[employer] Payer name Policy type / Coverage type Stephen red constitution party ID SELF PAY [id number]
--- OUTSIDE RECORDS SUMMARY | 2025-01-09 14:02 | XMS_ITS | Referral Summary ---
Author Organization [facility] Address [address] [place] [address] Care Team Providers Care Dry House Attendant Name Role Phone Diane Longo MD Primary Care Provider [phone] Allergies No known active allergies Medications Ozempic [...] on file Legal Sex Female 8:46 PM RELIGIOUS HEALER Gender Identity Not on file Sexual Orientation [...] lb 3.2 oz) 07/23/2024 3:32 P M RELIGIOUS HEALER Height 154.9 cm (5' 1 ) 05/21/2024 2:44 PM CDT Body Mass Index 29.32 05/21/2024 2:44 PM CDT Plan of Treatment Not on file Procedures Procedure Name Priority Date/Time Associated Diagnosis Comments EGFR Routine 04/03/2024 1:05 PM CDT Pre-op testing HEMOGLOBIN A1C Routine 04/03/2024 12:57 PM CDT Pre-op testing Type 2 diabetes mellitus without complication, 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 (HCC) SCREENING MAMMOGRAM BILATERAL W [...] ORDERABLES Final Re sult Performing Organization Address [facility] Co de Phone Number [facility] [address] [place] [address] * (ABNORMAL) Hemoglobin A1c (04/03/2024 12:57 PM CDT) Hgb A1C 10.1(H) 4.0 - 5.6 % Estimated Average Glucose 243 mg/dL [facility] Comment: The ADA recommends reporting an estimated Average Glucose (eAG) with all Hemoglobin A1c results using the equation derived from a study of 507 normal and diabetic adults. Minority populations were underrepresented and children were not included. (Diabetes Care 31:9924-2257, 2008). The eAG is not equivalent to a fasting glucose. Blood 04/03/2024 12:5 7 PM CDT 04/03/2024 1:04 PM CDT Mike Hinojosa MD LAB BLOOD ORDERABLES Final Re sult Performing Organization Address [facility] de Phone Number [facility] [address] [facility] [place] [address] * Screening Mammogram Bilateral W Kalpana (12/05/2018 12:30 PM CDT) Anatomical Region Laterality Modality Breast Bilateral Mammography Narrative 12/10/2018 2:11 PM CDT Mammogram Technique: Bilateral Digital Breast Tomosynthesis, Bilateral C-view 2D Screening mammogram. Views obtained: bilateral craniocaudal and bilateral mediolateral oblique. Computer Aided Detection was performed. Mammogram Findings: The present examination has been compared to prior imaging studies performed at [facility] on 02/26/2013 and 03/05/2014, and at [facility] on 02/22/2012. [...] to prior imaging studies performed at [facility] on 02/26/2013 and 03/05/2014, and at [facility] on 02/22/2012. There are scattered areas of fibroglandular density. There is no suspicious abnormality in either breast. Impression: Annual screening mammography is recommended. OVERALL FINAL ASSESSMENT: BI-RADS CATEGORY 1: Negative. Mateusz Norman MD IMG MAMMO PROCEDURES Final Re sult from Last 3 Months or Most Recently Relevant to Health Maintenance Insurance [facility] [address] [facility] [place] [address] [facility] Care Teams Dry House Attendant Relationship Specialty Start Date End Date Diane Longo MD [address] [place] [id number] PCP - General Emergency Medicine 01/17/24
--- NOTE | 2025-01-09 14:46 | ED_ITS ---
HPI - Dizziness General Chief Complaint: Dizziness Stated Complaint: Dizziness since yesterday Time Seen by Provider: 01/09/25 14:39 History of Present Illness HPI Narrative: Pt says she awoke at 0500 yesterday and was very dizzy and unsteady. Pt says she leaned to left when trying to walk. Pt denies RAUSCH or one sided weakness. Pt says the dizziness has been constant and she has not been able to find a position to make it better. Related Data Home Medications Medication Instructions Recorded Confirmed Last Taken Type atorvastatin 40 mg tablet 40 mg PO DAILY 12/08/24 01/05/25 Unknown History dapagliflozin propanediol 10 mg 10 mg PO DAILY 12/08/24 01/05/25 Unknown History tablet famotidine 20 mg tablet 20 mg PO DAILY 12/08/24 01/05/25 Unknown History lisinopril 40 mg tablet 40 mg PO DAILY 12/08/24 01/05/25 Unknown History semaglutide 1 mg/dose (4 mg/3 mL) 1 mg subcut WEEKLY 12/08/24 01/05/25 Unknown History subcutaneous pen injector (Ozempic) Allergies Allergy/AdvReac Type Severity Reaction Status Date / Time No Known Allergies Allergy Verified 01/09/25 12:19 Review of Systems 2 Review of Systems: All systems reviewed & are unremarkable except as noted in HPI and below PMFSH Past Medical History Medical History ) Diabetes type 2, controlled GERD (gastroesophageal reflux disease) Hyperlipidemia Hypertension Family History Family History ) Unknown Diabetes mellitus Hypertension Social History Social History ) Smoking status: Never smoker Substance use type: does not use Living arrangements: with family Gender identity (if verbalized by the patient): Female Spiritual care concerns: No Exam 2 Const: General: healthy appearing and no acute distress Nutritional Appearance: well nourished Orientation/consciousness: patient oriented x3 Limitations: no limitations HENMT: Head: normal to inspection Eyes: Conjunctivae: conjunctivae normal Pupils: Equal, round and reactive pupils present EOM: EOMs intact bilaterally Neck: Neck: normal visual inspection Resp: Effort & Inspection: normal respiratory effort Auscultation: clear to auscultation bilaterally Cardio: Rate: regular rate Rhythm: regular rhythm Back/Spine/Pelvis: Back: no CVA tenderness Skin: General skin exam: normal color Rashes: no rashes Wounds: no wounds Neuro: General: patient oriented x3, moves all extremities, no meningeal signs, no focal motor deficits and CN's II-XI intact bilaterally Cranial nerves: Yes Nystagmus not present Speech: normal speech Extrem: General: normal to inspection and no clubbing, cyanosis or edema Psych: Mental Status: mental status grossly normal Affect: normal affect Attitude: cooperative Course Vital Signs Vital signs: Vital Signs Temperature 98 F 01/09/25 12:24 Pulse Rate 94 01/09/25 12:24 Respiratory Rate 16 01/09/25 12:24 Blood Pressure 139/68 01/09/25 12:24 Pulse Oximetry 100 01/09/25 12:24 Temperature 97.8 F 01/09/25 16:30 Pulse Rate 89 01/09/25 16:30 Respiratory Rate 16 01/09/25 16:30 Blood Pressure 133/77 01/09/25 16:30 Pulse Oximetry 98 01/09/25 16:30 MDM - Dizziness MDM Narrative Medical decision making narrative: Pt presents with dizziness for over 24 hrs constantly that does not change with position. Concerned for posterior stroke so will get cta head and neck and check labs since diabetic to rule out dka. will try dose of antivert even though this does not act like classic vertigo. Pt feels much better after antivert. CTA unremarkable and labs look good. home on antivert. Lab Data 01/09/25 15:05 01/09/25 15:05 Labs: Lab Results 01/09/25 01/09/25 Range/Units 15:05 15:30 WBC 8.4 (4.5-10.0) K/mm3 RBC 4.66 (4.2-5.4) M/mm3 Hgb 13.0 (12.0-15.0) g/dL Hct 40.2 (37.0-47.0) % MCV 86.3 (80-100) fl MCH 27.9 (26-34) pg MCHC 32.3 (32-36) g/dl RDW 12.6 (11.5-14.5) % Plt Count 409 H (150-375) k/mm3 MPV 9.4 (7.4-10.4) fl Immature Gran % (Auto) 0.2 (0-0.5) % Neut % (Auto) 63.5 (45.5-73.1) % Lymph % (Auto) 28.4 (18.3-44.2) % [place] % (Auto) 5.6 (2.6-8.5) % Eos % (Auto) 1.3 (0-4.4) % Baso % (Auto) 1.0 (0.2-1.2) % Lymph # (Auto) 2.38 (0.9-3.2) K/mm3 [place] # (Auto) 0.5 (0.1-0.6) K/mm3 Eos # (Auto) 0.1 (0-0.3) K/mm3 Baso # (Auto) 0.1 (0.0-0.1) K/mm3 Abs Immat Gran (auto) 0.02 (0.00-0.031) K/mm3 Absolute Neuts (auto) 5.3 (1.3-6.7) K/mm3 Absolute Nucleated RBC 0.000 (0.0-0.012) K/mm3 Nucleated RBC % 0.0 (0.0-0.2) % PT 14.7 (11.1-14.7) Seconds INR 1.1 APTT 31.0 (22.3-36.8) Seconds Sodium 139 (137-145) mmol/L Potassium 4.4 (3.4-5.0) mmol/L Chloride 101 (98-107) mmol/L Carbon Dioxide 26 (22-30) mmol/L Anion Gap 12 (4-12) mmol/L BUN 18 H (7-17) mg/dL Creatinine 0.69 L (0.7-1.0) mg/dL Estim Creat Clear Calc 64 ml/min Estimated GFR > 60 (59 - ) Glucose 137 H (65-110) mg/dL Calcium 9.6 (8.4-10.2) mg/dL Total Bilirubin 0.5 (0.2-1.3) mg/dL AST 25 (14-36) U/L ALT 23 (6-35) U/L Alkaline Phosphatase 145 H (38-126) U/L Total Protein 8.0 (6.3-8.2) g/dL Albumin 4.2 (3.5-5.1) g/dL Urine Color Yellow (Yellow) Urine Appearance Clear (Clear) Urine pH 5.0 (5.0-9.0) Ur Specific [place] 1.037 H (1.001-1.035) Urine Protein Negative (Negative) mg/dL Urine Glucose (UA) 3+ H (Negative) mg/dL Urine Ketones 1+ H (Negative) mg/dL Ur Blood (Man) Negative (Negative) Urine Nitrate Negative (Negative) Urine Bilirubin Negative (Negative) Urine Urobilinogen 0.2 (<2.0) mg/dL Leukocyte Esterase Rfl Negative (Negative) JUDE/UL Discharge Plan Discharge Clinical Impression: Dizziness Patient Disposition: Home Condition: Improved Instructions: Antibiotic Form, Vertigo (ED), Dizziness (ED) Patient Language: Divehi Prescriptions: New meclizine 25 mg tablet 25 mg PO TID PRN (Reason: dizziness) Qty: 30 0RF No Action famotidine 20 mg tablet 20 mg PO DAILY atorvastatin 40 mg tablet 40 mg PO DAILY lisinopril 40 mg tablet 40 mg PO DAILY Ozempic 1 mg/dose (4 mg/3 mL) pen injector 1 mg SUBCUT WEEKLY Patient Comments: TAKES ON MONDAYS dapagliflozin propanediol 10 mg tablet 10 mg PO DAILY oxycodone-acetaminophen [Percocet] 5-325 mg tablet 1 tablet PO Q6H PRN (Reason: pain) Qty: 40 0RF clindamycin-benzoyl peroxide 1-5 % gel 1 applic topical DAILY Qty: 25 0RF Rx Instructions: Apply to surgical shoulder daily after showering for 2 weeks chlorhexidine gluconate [Hibiclens] 4 % liquid 1 applic topical ONCE Qty: 237 0RF Rx Instructions: Cleanse operative extremity, in shower, every day for 1 week prior to surgical procedure. Follow-up/Referrals: Donta,Diane Ruelas MD [Primary Care Provider] -
[2025-01-09] MEDS: MECLIZINE HCL 25 MG TABLET 50 MG PO (14:54)
[2025-01-09 15:11] LABS: Basophils Absolute Auto 0.1 K/mm3 (0.0-0.1); Eosinophils Absolute Auto 0.1 K/mm3 (0-0.3); Eosinophils Percent Auto 1.3 % (0-4.4); Hematocrit 40.2 % (37.0-47.0); Immature Granulocyte Absolute 0.02 K/mm3 (0.00-0.031); Immature Granulocyte Percent A 0.2 % (0-0.5); Lymphocytes Absolute Auto 2.38 K/mm3 (0.9-3.2); Lymphocytes Percent Auto 28.4 % (18.3-44.2); Mean Corpuscular HGB Conc 32.3 g/dl (32-36); Mean Corpuscular Hemoglobin 27.9 pg (26-34); Mean Corpuscular Volume 86.3 fl (80-100); Mean Platelet Volume 9.4 fl (7.4-10.4); Monocytes Absolute Auto 0.5 K/mm3 (0.1-0.6); Monocytes Percent Auto 5.6 % (2.6-8.5); Neutrophils Absolute Auto 5.3 K/mm3 (1.3-6.7); Neutrophils Percent Auto 63.5 % (45.5-73.1); Platelet Count Result 409 k/mm3 (150-375); Red Blood Count 4.66 M/mm3 (4.2-5.4); Red Cell Distribution Width 12.6 % (11.5-14.5); White Blood Count 8.4 K/mm3 (4.5-10.0)
[2025-01-09 15:20] LABS: Alanine Aminotransferase 23 U/L (6-35); Albumin Level 4.2 g/dL (3.5-5.1); Alkaline Phosphatase 145 U/L (38-126); Anion Gap 12 mmol/L (4-12); Aspartate Amino Transferase 25 U/L (14-36); Bilirubin,Total 0.5 mg/dL (0.2-1.3); Blood Urea Nitrogen 18 mg/dL (7-17); Calcium 9.6 mg/dL (8.4-10.2); Carbon Dioxide 26 mmol/L (22-30); Chloride 101 mmol/L (98-107); Estimated CRCL calculation 64 ml/min; Estimated Glomerular Filt Rate > 60; Glucose 137 mg/dL (65-110); Potassium 4.4 mmol/L (3.4-5.0); Sodium 139 mmol/L (137-145)
[2025-01-09 15:23] LABS: INR 1.1; Prothrombin Time 14.7 Seconds (11.1-14.7)
[2025-01-09 15:37] LABS: Add Urine Microscopic? NO; Appearance Urine Clear (Clear); Bilirubin Urine Negative (Negative); Blood Urine Negative (Negative); Color Urine Yellow (Yellow); Glucose Urine UA 3+ mg/dL (Negative); Ketones Urine 1+ mg/dL (Negative); Leukocyte Esterase Ur Negative LEU/UL (Negative); Nitrate Urine Negative (Negative); Protein Urine Negative (Negative); Specific Grav Ur 1.037 (1.001-1.035); Urobilinogen Urine 0.2 mg/dL (<2.0)
== END 2025-01-09 18:46 | disposition home or self-care (01) ==
PROVIDERS: Nurse Practitioner Family; Emergency Provider Emergency Medicine; PCP Emergency Medicine
DX: R42 Dizziness and giddiness (principal); E11.9 Type 2 diabetes mellitus without complications; I10 Essential (primary) hypertension; E78.5 Hyperlipidemia, unspecified; Z79.899 Other long term (current) drug therapy
CPT/HCPCS: 36415; 70496; 70498; 80053; 81003; 85025; 85610; 85730; 93005; 99284; A9270; Q9967

== ENCOUNTER 2025-06-08 11:14 | Outpatient (CLI) | payer MEDICARE, MEDICAID, SELFPAY ==
--- NOTE | ~2025-06-08 | US_ITS ---
EXAMINATION: US retroperitoneal comp DATE: 06/08/2025 11:37 INDICATION: Bilateral flank pain. Hydronephrosis. TECHNIQUE: Multiple ultrasound grayscale images of the kidneys were obtained. COMPARISON: None. FINDINGS: The right kidney measures 11.3 x 5.3 x 6.0 cm. The left kidney measures 10.2 x 5.0 x 3.7 cm. The kidneys demonstrate normal parenchymal echogenicity. Cystic areas at the hilum of right kidney may be peripelvic cysts or mild hydronephrosis. The bladder is normal. IMPRESSION: 1. Cystic areas at the hilum of right kidney, consistent with peripelvic cysts versus mild hydronephrosis. Reviewed, dictated and finalized at location E.
== END 2025-06-08 11:15 | disposition home or self-care (01) ==
LOC: MICIMG 11:15
PROVIDERS: PCP Emergency Medicine; Visit Provider Emergency Medicine
DX: N28.1 Cyst of kidney, acquired (principal); N13.30 Unspecified hydronephrosis
CPT/HCPCS: 76770

== ENCOUNTER 2025-06-18 15:42 | Outpatient (CLI) | payer MEDICARE, MEDICAID, SELFPAY ==
--- NOTE | ~2025-06-18 | CT_ITS ---
CT abdomen pelvis wo con INDICATION:Abnormal findings on diagnostic imaging . COMPARISON: None. TECHNIQUE: Axial 2.5 mm images of the abdomen were obtained without IV or oral contrast. Diagnostic sensitivity is limited due to lack of IV contrast. FINDINGS: Mildly interstitial thickening present at the lung bases. There are no focal consolidation. The liver parenchyma is unremarkable. No intrahepatic mass or ductal dilatation is evident. The gallbladder is unremarkable. The pancreas and spleen are normal in appearance. Calcification in the tail the pancreas is likely vascular. The adrenal glands are symmetric in size. The kidneys are unremarkable. No intrarenal stones are noted. There is no hydronephrosis. Evaluation of the stomach and bowel loops are limited due to lack of oral contrast. The appendix is normal in appearance. There is colonic diverticulosis without evidence of acute diverticulitis. Fat-containing ventral wall hernias are noted. There are no bowel obstructions. The bladder and rectum are normal. The uterus and both adnexa are unremarkable. No free intraperitoneal fluid or air is evident. There is no significant retroperitoneal lymphadenopathy. Vascular calcifications are noted throughout the aorta. The lower thoracic and lumbar vertebrae are in normal alignment. IMPRESSION: No acute abnormality is noted in the abdomen and pelvis. Fat-containing ventral wall hernias. Colonic diverticulosis without evidence of acute diverticulitis. All CT scans at this facility are performed using low dose modulation techniques as appropriate to perform exam including the following: automated exposure control; use of iterative reconstruction technique; adjustment of the mA and/or kV according to patient size (this includes techniques or standardized protocols for targeted exams where dose is matched to indication/reason for exam). Reviewed, dictated and finalized at location S. IMPRESSION: No acute abnormality is noted in the abdomen and pelvis. Fat-containing ventral wall hernias. Colonic diverticulosis without evidence of acute diverticulitis. All CT scans at this facility are performed using low dose modulation techniqu es as appropriate to perform exam including the following: automated exposure c ontrol; use of iterative reconstruction technique; adjustment of the mA and/or kV according to patient size (this includes techniques or standardized protocol s for targeted exams where dose is matched to indication/reason for exam).
== END 2025-06-18 15:43 | disposition home or self-care (01) ==
LOC: MICIMG 15:43
PROVIDERS: PCP Emergency Medicine; Visit Provider Emergency Medicine
DX: R93.89 Abnormal findings on diagnostic imaging of other specified body structures (principal); K43.9 Ventral hernia without obstruction or gangrene; K57.30 Diverticulosis of large intestine without perforation or abscess without bleeding
CPT/HCPCS: 74176

== ENCOUNTER 2025-08-03 13:54 | Outpatient (CLI) | payer MEDICARE, MEDICAID, SELFPAY ==
--- NOTE | ~2025-08-03 | XR_ITS ---
EXAMINATION: XR sacroiliac joints min 3V, 08/03/2025 14:10 RESIDENT PHYSICIAN HISTORY: chronic left side back pain COMPARISON: No comparisons available. Findings: No acute fracture or malalignment. Minimal sclerosis, no bridging osteophyte formation or erosions are identified Soft tissues unremarkable. Impression: No acute fracture or malalignment. Reviewed, dictated and finalized at location P. DENT PHYSICIAN Impression: No acute fracture or malalignment.
--- NOTE | ~2025-08-03 | XR_ITS ---
XR lumbar spine 2-3V Indication: chronic left sided low back pain Comparison: None Findings: Moderate loss of vertebral height, no fracture or subluxation. Moderate to severe loss of disc height throughout. Soft tissues unremarkable Impression: No acute abnormality. Reviewed, dictated and finalized at location P. GE PERSON Impression: No acute abnormality.
== END 2025-08-03 13:55 | disposition home or self-care (01) ==
PROVIDERS: PCP Emergency Medicine; Visit Provider Emergency Medicine
DX: M54.42 Lumbago with sciatica, left side (principal); G89.29 Other chronic pain
CPT/HCPCS: 72100; 72202